=== PATIENT | male | born 1975 | race Caucasian/White ===

== ENCOUNTER 2019-11-17 09:31 | Outpatient (CLI) | payer OTHER, SELFPAY ==
[2019-11-17 10:53] LABS: Free T4 Free Thyroxine 0.92 ng/mL (0.78-2.19)
[2019-11-23 08:01] LABS: Triiodothyronine T3 Free 3.4 pg/mL (2.3-4.2)
[2019-11-23 14:04] LABS: Thyroid Stimulating Immunoglob <89 % baseline (<140)
== END 2019-11-17 09:32 | disposition home or self-care (01) ==
PROVIDERS: Visit Provider Internal Medicine Endocrinology, Diabetes & Metabolism
DX: E05.90 Thyrotoxicosis, unspecified without thyrotoxic crisis or storm (principal)
CPT/HCPCS: 36415; 84439; 84443; 84445; 84481

== ENCOUNTER 2020-04-21 07:39 | Outpatient (CLI) | payer OTHER, SELFPAY ==
[2020-04-21 09:16] LABS: Free T4 Free Thyroxine 1.02 ng/mL (0.78-2.19)
[2020-04-29 06:26] LABS: Triiodothyronine T3 Free 3.6 pg/mL (2.3-4.2)
== END 2020-04-21 07:40 | disposition home or self-care (01) ==
PROVIDERS: Visit Provider Internal Medicine Endocrinology, Diabetes & Metabolism
DX: E05.90 Thyrotoxicosis, unspecified without thyrotoxic crisis or storm (principal); E04.9 Nontoxic goiter, unspecified
CPT/HCPCS: 36415; 84439; 84443; 84481

== ENCOUNTER 2020-08-25 13:07 | Outpatient (CLI) | payer OTHER, SELFPAY ==
[2020-08-25 13:40] LABS: Alanine Aminotransferase 39 U/L (4-50); Albumin Level 4.3 g/dL (3.5-5.1); Alkaline Phosphatase 45 U/L (38-126); Anion Gap 6 mmol/L (8-16); Aspartate Amino Transferase 32 U/L (17-59); Bilirubin,Total 0.4 mg/dL (0.2-1.3); Blood Urea Nitrogen 14 mg/dL (9-20); Calcium 9.6 mg/dL (8.4-10.2); Carbon Dioxide 28 mmol/L (22-30); Chloride 108 mmol/L (98-107); Cholesterol 144 mg/dL (0-200); Estimated Glomerular Filt Rate > 60; Glucose 93 mg/dL (75-110); HDL Direct 44 mg/dL; Potassium 3.8 mmol/L (3.4-5.0); Sodium 142 mmol/L (137-145); Triglycerides 99 mg/dL (<150)
[2020-08-25 13:51] LABS: LDL Cholesterol Direct 80 mg/dL
== END 2020-08-25 13:08 | disposition home or self-care (01) ==
LOC: ANHLAB 13:11
PROVIDERS: PCP Physician Assistant; Visit Provider Physician Assistant
DX: E78.2 Mixed hyperlipidemia (principal); Z80.42 Family history of malignant neoplasm of prostate
CPT/HCPCS: 36415; 80053; 80061; 84153

== ENCOUNTER 2020-08-26 08:34 | Outpatient (CLI) | payer OTHER, SELFPAY ==
--- NOTE | 2020-08-26 08:30 | ECG_ITS ---
Measurements Intervals [place] Rate: 58 P: 34 MS: 153 QRS: 0 QRSD: 101 T: 21 QT: 379 QTc: 375 Interpretive Statements SINUS BRADYCARDIA BORDERLINE R WAVE PROGRESSION, ANTERIOR LEADS BORDERLINE ECG Electronically Signed On 08-26-2020 9:12:27 CDT by Gagan Quintana D.O.
== END 2020-08-26 08:35 | disposition home or self-care (01) ==
PROVIDERS: PCP Physician Assistant; Visit Provider Otolaryngology
DX: E78.5 Hyperlipidemia, unspecified (principal); R94.31 Abnormal electrocardiogram [ECG] [EKG]
CPT/HCPCS: 93005

== ENCOUNTER → 2020-08-27 01:39 | Outpatient (CLI) | payer OTHER, SELFPAY ==
[2020-08-28 14:53] LABS: SARS-CoV-2 RNA PCR Negative
== END ==
PROVIDERS: PCP Physician Assistant; Visit Provider Otolaryngology
DX: Z01.812 Encounter for preprocedural laboratory examination (principal); Z20.822 Contact with and (suspected) exposure to COVID-19
CPT/HCPCS: C9803; U0003; U0005

== ENCOUNTER 2020-08-30 02:24 | Day surgery (SDC) | payer OTHER, SELFPAY ==
[2020-08-24 11:14] VITALS: BMI 29.5
--- NOTE | 2020-08-29 09:05 | PM.IMHP ---
H&P: HPI History of Present Illness Date/Time: 08/29/20 09:05 45-year-old male presents with nasal obstruction. He presents today for planned surgical procedures to correct his nasal airway. Patient reports no changes in his symptoms or medical history. Chief Complaint: Nasal obstruction, septal deviation, inferior turbinate hypertrophy Review of Systems Constitutional: Constitutional: Denies fatigue, Denies fever(s) and Denies lethargy Eyes: Eyes: Denies blurry vision and Denies change in vision ENT: Reports as per HPI Cardiovascular: Cardiovascular: Denies chest pain Respiratory: Respiratory: Denies cough Endocrine: Endocrine: Denies fatigue Hematologic/Lymphatic: Hematologic/Lymphatic: Denies easy bleeding, Denies easy bruising and Denies lymphadenopathy Allergic/Immunologic: Allergic/Immunologic: Denies seasonal rhinorrhea COUNTS INCLUDE 234 BEDS AT THE [facility] Past Medical History Medical History Dyslipidemia Family History Family History Grandparent Hyperthyroidism Father Cancer Social History Social History Smoking status: Never smoker Alcohol intake: never Substance use: never Substance use type: does not use 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: No Meds Home Medications and Allergies Home Medications Medication Instructions Recorded Confirmed Type atorvastatin 10 mg tablet 10 mg PO DAILY 05/25/19 08/24/20 History famotidine 40 mg tablet 40 mg PO HS 07/26/20 08/24/20 History fluticasone propionate 50 1 spray INTRANASAL BID #16 ml 07/26/20 08/24/20 Rx mcg/actuation nasal spray,suspension azelastine 1 spray INTRANASAL HS 08/24/20 08/24/20 History methimazole 5 mg PO HS 08/24/20 08/24/20 History Allergies Allergy/AdvReac Type Severity Reaction Status Date / Time morphine Allergy Unknown Itching Verified 08/24/20 10:57 Exam Const: General: cooperative, healthy appearing, comfortable, well developed and alert HENMT: Head: normal to inspection, normocephalic and atraumatic Ears: hearing grossly normal bilaterally, external ears normal, TM's normal bilaterally and EAC's normal General nose exam: Normal external nose present, Normal nares present, No nasal polyps present, mucous membranes and turbinates abnormal, abnormal septum and Other nasal findings present ( Inferior turbinate hypertrophy left septal deviation) Face and sinus: normal facial exam Mouth: Yes Normal oral and palatal mucosa present, Yes lip normal, Yes tongue normal, Yes oropharynx normal and Yes moist mucous membranes Teeth and gingiva: dentition normal and gingiva normal Throat: posterior oropharynx normal, tonsils normal and uvula midline Eyes: General: appearance normal, both eyes and all related structures Periorbital: periorbital findings normal Eyelids: eyelids normal Conjunctivae: conjunctivae normal Sclera: sclerae normal Neck: Neck: normal visual inspection, full ROM and no lymphadenopathy Thyroid: thyroid normal Lymphatic: no lymphadenopathy noted Resp: Effort & Inspection: normal respiratory effort and able to speak in complete sentences Cardio: Jugular venous distension: no JVD Neuro: Cranial nerves: Yes CN's II-XII intact bilaterally Assessment and Plan Assessment and plan (1) Nasal obstruction: Code(s): J34.89 - Other specified disorders of nose and nasal sinuses Status: Acute Assessment and Plan: plan is for the OR for endoscopic assisted septoplasty and inferior turbinate reduction. The risks were discussed in great detail including bleeding infection damage to surrounding structures the need for further procedures septal perforation change in cosmesis blindness brain damage CSF leakage. Patient voiced und
--- NOTE | 2020-08-29 13:46 | P.PNAN_ITS ---
Anes - Initial Pre Proc Eval Procedure: Operation Date: 08/30/20 08:30 Proposed Procedures p Endoscopic Septoplasty, - Connor Enamorado MD s Bilateral Inferior Turbinectomy - Connor Enamorado MD Date/Time: 08/29/20 13:46 Surgeon: Connor Enamorado MD Pre Op Diagnosis: nasal septal deviation, turbinate hypertrophy Patient Data Age: 45 Gender: M Height: 5 ft 9 in Weight: 90.75 kg Allergies Allergy/AdvReac Type Severity Reaction Status Date / Time morphine Allergy Unknown Itching Verified 08/30/20 07:23 Home Medications Medication Instructions Recorded Confirmed Type atorvastatin 10 mg tablet 10 mg PO DAILY 05/25/19 08/30/20 History famotidine 40 mg tablet 40 mg PO HS 07/26/20 08/30/20 History fluticasone propionate 50 1 spray INTRANASAL BID #16 ml 07/26/20 08/30/20 Rx mcg/actuation nasal spray,suspension azelastine 1 spray INTRANASAL HS 08/24/20 08/30/20 History methimazole 5 mg PO HS 08/24/20 08/30/20 History Patient hx anesthesia problems: none Family hx anesthesia problems: none [facility] Past Medical History Medical History (Updated 08/29/20 @ 13:46 by Gopal Cruz MD) Dyslipidemia GERD (gastroesophageal reflux disease) Hyperthyroidism Family History Family History Grandparent Hyperthyroidism Father Cancer Social History Social History Smoking status: Never smoker Alcohol intake: never Substance use: never Substance use type: does not use Living arrangements: with family 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 Questions were solicited and answers provided to the satisfaction of the patient/family/POA.
[2020-08-30] VITALS (15 sets, daily range): BP systolic 142–180; BP diastolic 65–106; PULSE 74–96; RESP 10–18; TEMP 36.1–36.3; O2SAT 94–99
[2020-08-30] MEDS: LACTATED RINGERS 1,000 ML 30 ML IV CONT ×2 (07:00→10:10)
[2020-08-30] MEDS: ACETAMINOPHEN 500 MG TABLET 1000 MG PO (07:05)
--- NOTE | 2020-08-30 07:17 | WPDHPUPDATE1 ---
History and Physical Update Update Date/Time: 08/30/20 07:17 History and Physical has been reviewed, including an updated exam of the patient. There are NO changes in the patient's condition. Risks, benefits, and alternatives have been discussed and questions answered. Patient agrees to proceed with procedure.
[2020-08-30] MEDS: ceFAZolin 2 GM/D5W 50 ML 2 GM/50 ML BAG IVPB (08:32)
[2020-08-30] MEDS: LIDO 1%/EPINEPHRINE 1:100,000 50 ML VIAL 10 ML INFILTRATE (08:47)
[2020-08-30] MEDS: OXYMETAZOLINE HCL 0.05% NAS 15 ML BTL (*BKC) 1 SPRAY NASAL (08:48)
--- NOTE | 2020-08-30 10:26 | P.OP_ITS ---
Procedure Note - Detailed Date of procedure: 08/30/20 Pre-op diagnosis: nasal septal deviation, turbinate hypertrophy Post-op diagnosis: same Procedure performed: Endoscopic assisted septoplasty Inferior turbinate reduction without fracture Description of procedure: The patient was correctly identified and consent was verified in the preoperative holding area. The patient was then brought to the operating room and a time-out was performed. General anesthesia was induced and endotracheal tube was secured the patient's airway and taped to the left lower lip. Afrin-soaked pledgets were then placed in the patient's nasal passages and allowed to sit for 5 minutes. They were then removed. The patient was then prepped and draped for the aforementioned procedures. Under 0 degree endoscope the bilateral nasal passages reviewed were with inferior turbinate hypertrophy and severe left caudal septal deviation noted. The septal spur was growing into the left inferior turbinate. 8 cc of 1% lidocaine with 1 100,000 parts epinephrine was then injected into the submucoperichondrial plane on the bilateral nasal septum. A [place] type incision was made on the left using a 15 blade. Elevation was carried out with a 7 Occitan suction as well as caudal elevator. The deviated portion was then removed following elevation of the right mucoperichondrial flap. Of note there is a left-sided septal perforation in the same region as the spur. The deviated septum was removed with Mima forceps osteotome and Marvin Farnsworth forceps. The inferior turbinates were then injected anteriorly with 1 cc of 1% lidocaine with 1 100,000 parts epinephrine each. There debrided in the submucosal plane with a micro debrider with inferior turbinate blade. There were then outfractured and any mulberry tips were again resected with micro debrider. There were lightly cauterized to prevent postoperative epistaxis. The anterior the Shiva incision was then sutured with 2 interrupted 5 0 fast gut sutures. Hope splints were then placed. These were sutured anteriorly using a 3 0 nylon suture. Hemostasis was excellent. I performed all dictated portions of the procedure. Care the patient was turned over to Anesthesiology. Anesthesia: GETA Surgeon: Connor Enamorado MD Estimated blood loss (mL): 10 Drains: No Packing: No Pathology: none sent Complications: No immediate complications Condition: stable Disposition: PACU Findings: Bilateral inferior turbinate hypertrophy, severe left-sided caudal septal spur
[2020-08-30] MEDS: hydrALAZINE HCL 20 MG/ML VIAL 5 MG IV PUSH ×2 (11:40→11:47)
[2020-08-30] MEDS: ONDANSETRON INJ 4 MG/2 ML VIAL IV PUSH (13:07)
[2020-08-30] MEDS: hydrALAZINE HCL 20 MG/ML VIAL 10 MG IV PUSH (13:13)
--- NOTE | 2020-08-30 13:45 | SUR.PHASEII ---
Patient is still feeling slightly nauseous, educated patient on nausea and pain pill. Patient states at this time he would rather go home and sleep than wait to see if nausea subsides to take pain pill.
== END 2020-08-30 13:57 | disposition home or self-care (01) ==
PROVIDERS: PCP Physician Assistant; Visit Provider Otolaryngology
PROC: (CPT 30520; principal; 2020-08-30 08:30)
PROC: (CPT 30140; 2020-08-30 08:30)
DX: J34.2 Deviated nasal septum (principal); J34.3 Hypertrophy of nasal turbinates; J34.89 Other specified disorders of nose and nasal sinuses; E78.5 Hyperlipidemia, unspecified; K21.9 Gastro-esophageal reflux disease without esophagitis; E05.90 Thyrotoxicosis, unspecified without thyrotoxic crisis or storm; E66.9 Obesity, unspecified; Z68.30 Body mass index [BMI] 30.0-30.9, adult
CPT/HCPCS: 30140; 30520; A9270; J0330; J0360; J0690; J1100; J2250; J2370; J2405; J2704; J3010; J7120

== ENCOUNTER 2021-05-25 10:51 | Outpatient (CLI) | payer OTHER, SELFPAY ==
[2021-05-25 11:06] LABS: Hematocrit 42.6 % (42.0-52.0); Hemoglobin 13.9 g/dL (14.0-18.0); Mean Corpuscular HGB Conc 32.6 g/dl (32-36); Mean Corpuscular Hemoglobin 26.9 pg (26-34); Mean Corpuscular Volume 82.6 fl (80-100); Mean Platelet Volume 10.7 fl (7.4-10.4); Platelet Count Result 230 k/mm3 (150-375); Red Blood Count 5.16 M/mm3 (4.6-6.20); Red Cell Distribution Width 13.3 % (11.5-14.5); White Blood Count 13.4 K/mm3 (4.5-10.0)
[2021-05-25 18:39] LABS: Alanine Aminotransferase 47 U/L (4-50); Albumin Level 4.8 g/dL (3.5-5.1); Alkaline Phosphatase 57 U/L (38-126); Anion Gap 7 mmol/L (8-16); Aspartate Amino Transferase 27 U/L (17-59); Bilirubin,Total 0.3 mg/dL (0.2-1.3); Blood Urea Nitrogen 16 mg/dL (9-20); Calcium 9.8 mg/dL (8.4-10.2); Carbon Dioxide 28 mmol/L (22-30); Chloride 108 mmol/L (98-107); Cholesterol 196 mg/dL (0-200); Estimated Glomerular Filt Rate 59; Glucose 128 mg/dL (65-110); HDL Direct 53 mg/dL; Potassium 4.4 mmol/L (3.4-5.0); Sodium 143 mmol/L (137-145); Triglycerides 160 mg/dL (<150)
[2021-05-25 18:50] LABS: LDL Cholesterol Direct 120 mg/dL
[2021-05-25 19:10] LABS: Prostate Specific Antigen 1.1 ng/mL (< OR = 4.0)
== END 2021-05-25 10:52 | disposition home or self-care (01) ==
PROVIDERS: PCP Physician Assistant; Visit Provider Physician Assistant
DX: E78.2 Mixed hyperlipidemia (principal); K30 Functional dyspepsia; E05.90 Thyrotoxicosis, unspecified without thyrotoxic crisis or storm; Z80.42 Family history of malignant neoplasm of prostate
CPT/HCPCS: 36415; 80053; 80061; 84153; 84439; 84443; 85027

== ENCOUNTER 2021-06-22 10:11 | Outpatient (CLI) | payer OTHER, SELFPAY ==
[2021-06-22 11:31] LABS: Hemoglobin A1C 5.3 % (<5.7)
== END 2021-06-22 10:12 | disposition home or self-care (01) ==
LOC: ANHLAB 10:14
PROVIDERS: PCP Physician Assistant; Visit Provider Physician Assistant
DX: R73.09 Other abnormal glucose (principal)
CPT/HCPCS: 36415; 83036

== ENCOUNTER 2021-07-11 09:45 | Outpatient (RCR) | payer OTHER, SELFPAY ==
--- NOTE | 2021-06-01 09:43 | PTOPEVAL ---
Thank you for referring Simon Tilley to [facility].? The patient is scheduled to be seen for therapy? 2 x/week for 3 weeks. Please review, sign, date and return this plan of care [place]. I agree with and certify that the following plan of care is medically necessary. 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 Subjective Information Reports his pain started in Query Text:As Reported By Patient/ the middle of his back and Family progressed to his neck region. He also c/o right elbow to hand pain. He received steriods which helped with his symptoms. He denies any hobbies at this time. He reports limitations with sleeping with increased arm pain. C/o mild arm pain with prolonged typing, prolonged use of UE with household task. Increased arm pain with heavy lifting task. Pain Assessment Right Arm(s) Reported Pain Level 2 Pain Description Tender on Palpation Pain Frequency Acute,Continuous Lowest Pain Intensity 2 Greatest Pain Intensity 10 Pain Aggravating Factors Lifting,Prolonged Position Bilateral Neck Reported Pain Level 3 Pain Description Tightness Pain Frequency Acute,Continuous Lowest Pain Intensity 3 Greatest Pain Intensity 3 Pain Aggravating Factors Lifting,Prolonged Position Cervical and Lumbar ROM Cervical ROM Cervical Flexion (0-60) 55Active in Degrees Cervical Extension (0-70) 55:Active in Degrees Cervical Lateral Flexion Right (0-50) 30:Active in Degrees Cervical Lateral Flexion Left (0-50) 35:Active in Degrees Cervical Rotation Right (0-90) 45Active in Degrees Cervical Rotation Left (0-90) 55:Active in Degrees Cervical ROM Comments pain with flex stiffness with lateral flex and rotation Upper Extremity Range of Motion General Upper Extremity Range of Motion Reason Not Measured WNL/Left,WNL/Right Cervical and Lumbar Muscle Testing Cervical Muscle Testing Cervical Flexion 5 Normal Cervical Extension 5 Normal Cervical Lateral Flexion Right 5 Normal Cervical Lateral Flexion Left 5 Normal Upper Extremity Muscle Strength Testing General Upper Extremity St
--- NOTE | 2021-06-20 09:08 | PTOPEVAL ---
Physical Therapy Progress Note Thank you for referring Simon Tilley to [facility]See summary below for Simon's progress with therapy. Additional therapy is required to address his remaining restrictions and achieve his therapy goals. The patient is scheduled to be seen for therapy? 1 x/week for 3 weeks. Please review, sign, date and return this plan of care [place]. I agree with and certify that the following plan of care is medically necessary. 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 Subjective Information Reports his pain his neck pain Query Text:As Reported By Patient/ is better with only tightness. Family HE cont to right elbow region pain. He denies increased arm pain waking him at night. He cont to have occasional symptoms with increased UE activities. Cont to c/o midback tightness and tenderness contributing to symptoms. Pain Assessment Right Arm(s) Reported Pain Level 1 Pain Description Tender on Palpation,Tingling Greatest Pain Intensity 10 Bilateral Neck Reported Pain Level 0 Pain Description Tightness Lowest Pain Intensity 0 Greatest Pain Intensity 0 Cervical and Lumbar ROM Cervical ROM Cervical Flexion (0-60) 60:Active in Degrees Cervical Extension (0-70) 60:Active in Degrees Cervical Lateral Flexion Right (0-50) 30:Active in Degrees Cervical Lateral Flexion Left (0-50) 30:Active in Degrees Cervical Rotation Right (0-90) 50:Active in Degrees Cervical Rotation Left (0-90) 70:Active in Degrees Cervical ROM Comments no pain with flex stiffness with lateral flex and right rotation Palpation Assessment Palpation Palpation muscle tightness of trap, scalene muscles and levator muscles tenderness and tightness of T5 -8 right paraspinals, serratus post sup region Special Test-Spine Cervical Spine Special Tests Foraminal Compression (Spurling) Negative Right,Negative Left Special Tests-Upper Extremity Shoulder Special Tests Painful Arc Negative Left,Negative Right Drop Arm Test Negative Left,Negative Right Upper Limb Tension Test: Radial Negative Left,Negative Right Upper Limb Tension Test:Median Negative Left
--- NOTE | 2021-07-11 16:39 | PTOPEVAL ---
Physical Therapy Discharge Summary Thank you for referring Simon Tilley to [facility].? See summary below for Simon's progress with therapy. He has reached maximal potential with skilled therapy services at this time. He has been provided a HEP and demonstrates indep. Will DC skilled therapy at this time. Please review, sign, date and return this discharge summary [place]. I agree with and certify that the following plan of care is medically necessary. 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 Subjective Information Reports the dry needling did Query Text:As Reported By Patient/ improve his tightness. Denies Family any UE symptoms, but cont neck tightness. He has not been performing neck stretching exercises at home. Pain Assessment Right Arm(s) Reported Pain Level 0 Bilateral Neck Reported Pain Level 0 Pain Description Tightness Cervical and Lumbar ROM Cervical ROM Cervical Lateral Flexion Right (0-50) 30:Active in Degrees Cervical Lateral Flexion Left (0-50) 33:Active in Degrees Cervical Rotation Right (0-90) 60:Active in Degrees Cervical Rotation Left (0-90) 60:Active in Degrees Cervical ROM Comments no pain with flex stiffness with lateral flex and right rotation Cervical and Lumbar Muscle Testing Cervical Muscle Testing Cervical Flexion 5 Normal Cervical Extension 5 Normal Cervical Lateral Flexion Right 5 Normal Cervical Lateral Flexion Left 5 Normal Deep Cervical Flexion sarahy 5 sec with proper position and control Upper Extremity Muscle Strength Testing General Upper Extremity Strength Gross Upper Extremity Strength Comments middle trap: 4/5 lower trap: 3+/5 no pain, improved muscle recruitment Palpation Assessment Palpation Palpation cont muscle tightness of jan upper/middle trap, scalene muscles no tenderness noted of neck and upper back muscles, no tenderness or tightness of serratus post sup or inf muscles PT Clinical Summary Pt referred to therapy due to neck pain and cervicalgia for the past month. He has attended 9 therapy visits to
== END 2021-07-12 10:55 | disposition home or self-care (01) ==
LOC: ANHPT 09:45
PROVIDERS: PCP Physician Assistant; Visit Provider Physician Assistant
DX: M54.2 Cervicalgia (principal)
CPT/HCPCS: 20560; 97110; 97112; 97140; 97162

== ENCOUNTER 2021-07-17 14:17 | Outpatient (CLI) | payer OTHER, SELFPAY ==
[2021-07-17 16:41] LABS: Free T4 Free Thyroxine 0.96 ng/mL (0.78-2.19)
[2021-07-17 16:57] LABS: Thyroid Stimulating Hormone 0.585 uIU/mL (0.465-4.680)
== END 2021-07-17 14:18 | disposition home or self-care (01) ==
LOC: ANHWCLAB 14:20
PROVIDERS: PCP Physician Assistant; Visit Provider Nurse Practitioner Family
DX: E07.9 Disorder of thyroid, unspecified (principal)
CPT/HCPCS: 36415; 84439; 84443; 84480

== ENCOUNTER → 2021-09-22 02:23 | Outpatient (CLI) | payer OTHER, SELFPAY ==
[2021-09-22 12:21] LABS: SARS-CoV-2 RNA PCR Negative
== END ==
DX: Z20.822 Contact with and (suspected) exposure to COVID-19 (principal)
CPT/HCPCS: C9803; U0003; U0005

== ENCOUNTER 2021-12-01 10:39 | Outpatient (CLI) | payer OTHER, SELFPAY ==
--- NOTE | ~2021-12-01 | XR_ITS ---
XR thoracic spine 3V DATE: 12/01/2021 11:00 INDICATION: Thoracic back pain TECHNIQUE: AP, lateral, swimmer views COMPARISON: None FINDINGS: No fracture or dislocation or bone destruction. The thoracic pedicles are intact. No parasp inal soft tissue thickening. IMPRESSION: No significant abnormality Reviewed, dictated and finalized at location B. IMPRESSION: No significant abnormality
--- NOTE | ~2021-12-01 | XR_ITS ---
XR lumbar spine 2-3V DATE: 12/01/2021 11:00 INDICATION: Acute low back pain for one year. No injury. TECHNIQUE: COMPARISON: None FINDINGS: Normal alignment of the lumbar spine. No fracture or bone destruction is evident. The T12 a nd lumbar pedicles are intact. Moderately prominent loss of interspace height and minimal spurring at L5-S1. Remaining lumbar inters paces appear relatively well preserved. Mild spurring at L3-4. No spondylolisthesis. The sacroiliac joints appear normal. Mary Jane and sutures overlie the pelvis bilaterally. IMPRESSION: Mild degenerative disc disease at L3-4 Moderately severe degenerative disc disease at L5-S1 Reviewed, dictated and finalized at location B.
--- NOTE | ~2021-12-01 | XR_ITS ---
XR cervical spine 4-5V DATE: 12/01/2021 11:01 INDICATION: Neck pain, thoracic and lumbar back pain TECHNIQUE: AP, open-mouth, lateral, swimmer views COMPARISON: None FINDINGS: C1 and C2 are normally aligned and the odontoid process is intact. No fracture or dislocati on or locked facet or prevertebral soft tissue swelling. Minimal degenerative disease at C3-4 and C4-5 and mild degenerative disease at C5-6. Remaining cervic al interspaces appear well preserved. IMPRESSION: Minimal degenerative change Reviewed, dictated and finalized at location B. IMPRESSION: Minimal degenerative change
== END 2021-12-01 10:40 | disposition home or self-care (01) ==
PROVIDERS: PCP Emergency Medicine; Visit Provider Physician Assistant
DX: M51.36 Other intervertebral disc degeneration, lumbar region (principal); M51.37 Other intervertebral disc degeneration, lumbosacral region
CPT/HCPCS: 72050; 72072; 72100

== ENCOUNTER 2022-02-05 11:41 | Outpatient (CLI) | payer OTHER, SELFPAY ==
[2022-02-05 20:28] LABS: Free T4 Free Thyroxine 1.04 ng/mL (0.78-2.19)
[2022-02-05 20:48] LABS: Thyroid Stimulating Hormone 0.284 uIU/mL (0.465-4.680)
[2022-02-08 14:27] LABS: Thyroid Stimulating Immunoglob <89 % baseline (<140)
== END 2022-02-05 11:42 | disposition home or self-care (01) ==
LOC: ANHGOSHLAB 11:42
PROVIDERS: PCP Emergency Medicine; Visit Provider Internal Medicine Endocrinology, Diabetes & Metabolism
DX: E05.90 Thyrotoxicosis, unspecified without thyrotoxic crisis or storm (principal); E05.00 Thyrotoxicosis with diffuse goiter without thyrotoxic crisis or storm
CPT/HCPCS: 36415; 84439; 84443; 84445

== ENCOUNTER 2022-04-10 13:30 | Outpatient (CLI) | payer OTHER, SELFPAY ==
[2022-04-10 19:04] LABS: Thyroid Stimulating Hormone 0.071 uIU/mL (0.465-4.680)
[2022-04-10 19:24] LABS: Free T4 Free Thyroxine 1.05 ng/mL (0.78-2.19)
[2022-04-13 06:22] LABS: Triiodothyronine T3 Free 3.6 pg/mL (2.3-4.2)
== END 2022-04-10 13:31 | disposition home or self-care (01) ==
LOC: ANHGOSHLAB 13:31
PROVIDERS: PCP Emergency Medicine; Visit Provider Internal Medicine Endocrinology, Diabetes & Metabolism
DX: E04.9 Nontoxic goiter, unspecified (principal); E05.00 Thyrotoxicosis with diffuse goiter without thyrotoxic crisis or storm
CPT/HCPCS: 36415; 84439; 84443; 84481

== ENCOUNTER 2022-05-30 07:01 | Outpatient (CLI) | payer OTHER, SELFPAY ==
[2022-05-30 08:03] LABS: Alanine Aminotransferase 54 U/L (6-50); Albumin Level 4.3 g/dL (3.5-5.1); Alkaline Phosphatase 50 U/L (38-126); Anion Gap 6 mmol/L (8-16); Aspartate Amino Transferase 33 U/L (17-59); Bilirubin,Total 0.5 mg/dL (0.2-1.3); Blood Urea Nitrogen 16 mg/dL (9-20); Calcium 9.1 mg/dL (8.4-10.2); Carbon Dioxide 26 mmol/L (22-30); Chloride 105 mmol/L (98-107); Estimated Glomerular Filt Rate > 60; Glucose 96 mg/dL (65-110); Potassium 3.8 mmol/L (3.4-5.0); Sodium 137 mmol/L (137-145)
[2022-05-30 08:32] LABS: Thyroid Stimulating Hormone 0.099 uIU/mL (0.465-4.680)
[2022-05-30 09:00] LABS: Free T4 Free Thyroxine 1.03 ng/mL (0.78-2.19)
[2022-06-02 04:14] LABS: Triiodothyronine T3 Free 3.8 pg/mL (2.3-4.2)
== END 2022-05-30 07:02 | disposition home or self-care (01) ==
PROVIDERS: PCP Emergency Medicine; Visit Provider Internal Medicine Endocrinology, Diabetes & Metabolism
DX: E05.00 Thyrotoxicosis with diffuse goiter without thyrotoxic crisis or storm (principal); E04.9 Nontoxic goiter, unspecified
CPT/HCPCS: 36415; 80053; 84439; 84443; 84481

== ENCOUNTER 2022-06-12 08:16 | Outpatient (CLI) | payer OTHER, SELFPAY ==
--- NOTE | 2022-06-24 14:13 | WPDHOMESLEEP ---
Sleep Study - Home Unattended Date of Study: 06/12/22 Ordering Provider: Ryan Montes De Oca APRN Interpreting Provider: Tona Baeza, DO Home Sleep Study Type: Watch PAT Height: 1.75 m Weight: 99.79 kg Body Mass Index: 32.5 Neck Circumference (inches): 16 [place]: 5 Reason for Sleep Study Daytime hypersomnia Sleep History The patient is a 46 year male with hyperthyroidism, GERD and dyslipidemia that had a sleep study ordered by the Pulmonary group for evaluation of sleep apnea. The patient rarely awakens from sleep short of breath. He occasionally awakens at night with heartburn, belching or cough. He constantly snores loudly enough others complain. He occasionally has breathing problems at night observed by himself or others. He denies sweating excessively at night. He denies having heart palpitations or irregular heartbeats during the night. He denies falling asleep during the day and denies falling asleep while driving. He denies sleep paralysis, cataplexy and hypnagogic / hypnopompic hallucinations. He denies having trouble at school or work due to sleepiness. He denies feeling afraid of going to sleep. He denies having nightmares. He rarely remembers his dreams. He occasionally has thoughts racing through his mind. He denies feeling sad, depressed or anxious. He denies having muscular tension. He frequently notices parts of his body jerk. He denies kicking during the night. He denies having crawling and aching feelings in his legs and denies having leg pain during the night. He occasionally grinds his teeth during sleep but never awakens with morning jaw pain. He denies being bothered by pain during the day and denies being awakened by pain during the night. He occasionally wakes up feeling stiff in the morning. He denies waking up with sore or achy muscles. He rarely wakes up with pain in the neck, spine or other joints. He goes to bed between 9-10 p.m. on weekdays and between 10-11 p.m. on the weekends. He is able to fall asleep within a few minutes. He wakes up several times throughout the night to urinate, let out the dog or for unknown reasons. He is able to fall back asleep within a few minutes. He typically gets 6-8 hours of sleep per night. He will stay in bed for a few minutes after waking up in the morning. He currently lives with his and 17-year-old child. He will consume tea within 2 hours of bedtime. He does not engage in physical exercise before bedtime. He will watch television before falling asleep. He denies taking naps in the afternoon or the evening. He will consume caffeinated beverages throughout the day. He denies tobacco, alcohol and recreational drug use. 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
[2022-06-24 14:27] VITALS: BMI 32.5
== END 2022-06-14 10:11 | disposition home or self-care (01) ==
LOC: ANHCSM 08:17
PROVIDERS: PCP Emergency Medicine; Visit Provider Nurse Practitioner Family
DX: G47.30 Sleep apnea, unspecified (principal); G47.33 Obstructive sleep apnea (adult) (pediatric)
CPT/HCPCS: 95800

== ENCOUNTER 2022-07-05 11:56 | Outpatient (CLI) | payer OTHER, SELFPAY ==
[2022-07-05 13:01] LABS: Thyroid Stimulating Hormone 0.047 uIU/mL (0.465-4.680)
[2022-07-05 13:21] LABS: Free T4 Free Thyroxine 1.18 ng/mL (0.78-2.19)
[2022-07-11 05:49] LABS: Triiodothyronine T3 Free 3.7 pg/mL (2.3-4.2)
== END 2022-07-05 11:57 | disposition home or self-care (01) ==
LOC: ANHLAB 11:58
PROVIDERS: PCP Emergency Medicine; Visit Provider Internal Medicine Endocrinology, Diabetes & Metabolism
DX: E05.90 Thyrotoxicosis, unspecified without thyrotoxic crisis or storm (principal); E04.9 Nontoxic goiter, unspecified
CPT/HCPCS: 36415; 84439; 84443; 84481

== ENCOUNTER 2022-07-06 08:54 | Outpatient (CLI) | payer OTHER, SELFPAY ==
--- NOTE | ~2022-07-06 | XR_ITS ---
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 TECHNIQUE: PA and lateral views of the chest were obtained. COMPARISON: Chest radiograph dated 10/08/2018 FINDINGS: The lungs remain clear with no focal airspace opacities, pulmonary edema, pleural effusion or pneumot horax. The cardiomediastinal silhouette is normal. Prominent hypertrophic change at the bilateral ant erior first ribs. Mild thoracic spondylosis. IMPRESSION: 1. No acute cardiopulmonary disease. Reviewed, dictated and finalized at location B.
== END 2022-07-06 08:55 | disposition home or self-care (01) ==
PROVIDERS: PCP Emergency Medicine; Visit Provider Nurse Practitioner Family
DX: G47.34 Idiopathic sleep related nonobstructive alveolar hypoventilation (principal)
CPT/HCPCS: 71046

== ENCOUNTER 2022-07-09 08:05 | Outpatient (CLI) | payer OTHER, SELFPAY ==
--- NOTE | 2022-07-09 17:22 | WPDPFTINT ---
PFT Procedure Performed PFT Procedure Performed Spirometry with Pre/Post Bronchodilator Plethysmography (Lung Vol) Diffusing Cap (DLCO) Flow Vol Loop PFT Interpretation This is a pulmonary function test with pre and post-bronchodilator spirometry, plethysmography and diffusing capacity. The test was performed and results interpreted in accordance with the 2019 and 2005 ATS/ERS Task Force guidelines respectively using the Global Lung Function Initiative-2012 reference equations. Patient demonstrated good effort and cooperation. Reproducibility criteria were met. The quality of the pre bronchodilator spirometry maneuver was Grade A and post bronchodilator spirometry maneuver was Grade A. Findings: Spirometry: The contour the inspiratory and expiratory flow tracing are normal. The pre bronchodilator FVC is 4.69 L, 97% predicted. The pre bronchodilator FEV1 is 4.05 L, 105% predicted. The pre bronchodilator FEV1: FVC ratio was 86%. The post bronchodilator FVC is 4.67 L, representing 1% decrease. The post bronchodilator FEV1 is 4.15 L, representing a 3% increase. The post bronchodilator FEV1: FVC ratio was 89%. Plethysmography: The total lung capacity is 6.55 L, 97% predicted. The functional residual capacity is 2.80 L, 82% predicted. The residual volume is 1.56 L, 81% predicted. Diffusion capacity: The diffusing capacity unadjusted for hemoglobin and carboxyhemoglobin is 24.1, 78% predicted. The diffusing capacity adjusted for alveolar volume is 4.16, 89% predicted. Impression: The spirometry is normal without evidence of an obstructive abnormality. There is no significant improvement after inhaling a single dose of albuterol. The lung volumes are normal. The diffusing capacity is normal. There are no prior studies for comparison
== END 2022-07-09 08:06 | disposition home or self-care (01) ==
PROVIDERS: PCP Emergency Medicine; Visit Provider Nurse Practitioner Family
DX: G47.34 Idiopathic sleep related nonobstructive alveolar hypoventilation (principal)
CPT/HCPCS: 94060; 94726; 94729

== ENCOUNTER 2022-08-08 08:21 | Outpatient (CLI) | payer OTHER, SELFPAY ==
--- NOTE | 2022-08-30 16:22 | WPDSLEEPSTUD ---
Sleep Study Date of Study: 08/08/22 Ordering Provider: Ryan Montes De Oca APRN Interpreting Physician: Jojo Leal MD Sleep Study Type: CPAP Titration Height: 1.75 m Weight: 99.79 kg Body Mass Index: 32.5 Neck Circumference (inches): 16 [place]: 5 Reason for Sleep Study * 06/12/2022 home sleep test showing mild obstructive sleep apnea with hypoxemia; he presents for a CPAP titration AHI of 11.1, desaturation down to 75% Sleep History Simon Tilley is a 47 year male with mild obstructive sleep apnea who is here for a CPAP titration. He rarely awakens from sleep short of breath.? He occasionally awakens at night with heartburn, belching or cough.? He constantly snores loudly enough that others complain.? He occasionally has breathing problems at night observed by himself or others.? He denies sweating excessively at night or having heart palpitations or irregular heartbeats during the night.? He denies falling asleep during the day and denies falling asleep while driving.? He denies sleep paralysis, cataplexy and hypnagogic / hypnopompic hallucinations.? He denies having trouble at school or work due to sleepiness.? He denies feeling afraid of going to sleep.? He denies having nightmares.? He rarely remembers his dreams.? He occasionally has thoughts racing through his mind.? He denies feeling sad, depressed or anxious.? He denies having muscular tension.? He frequently notices parts of his body jerk.? He denies kicking during the night.? He denies having crawling and aching feelings in his legs and denies having leg pain during the night.? He occasionally grinds his teeth during sleep but never awakens with morning jaw pain.? He denies being bothered by pain during the day and denies being awakened by pain during the night.? He occasionally wakes up feeling stiff in the morning.? He denies waking up with sore or achy muscles.? He rarely wakes up with pain in the neck, spine or other joints.? He goes to bed between 9-10 p.m. on weekdays and between 10-11 p.m. on the weekends.? He is able to fall asleep within a few minutes.? He wakes up several times throughout the night to urinate, let out the dog or for unknown reasons.? He is able to fall back asleep within a few minutes.? He typically gets 6-8 hours of sleep per night.? He will stay in bed for a few minutes after waking up in the morning.? He currently lives with his and 17-year-old child.? He will consume tea within 2 hours of bedtime.? He does not engage in physical exercise before bedtime.? He will watch television before falling asleep.? He denies taking naps in the afternoon or the evening.? Habits: He drinks caffeinated beverages throughout the day.? He denies tobacco, alcohol and recreational substance use. 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
[2022-08-30 16:55] VITALS: BMI 32.5
== END 2022-08-09 05:44 | disposition home or self-care (01) ==
LOC: ANHCSM 08:22
PROVIDERS: PCP Emergency Medicine; Visit Provider Nurse Practitioner Family
DX: G47.33 Obstructive sleep apnea (adult) (pediatric) (principal)
CPT/HCPCS: 95811

== ENCOUNTER 2022-08-21 09:37 | Outpatient (CLI) | payer OTHER, SELFPAY ==
[2022-08-21 09:57] LABS: Hematocrit 43.2 % (42.0-52.0); Hemoglobin 13.8 g/dL (14.0-18.0); Mean Corpuscular HGB Conc 31.9 g/dl (32-36); Mean Corpuscular Volume 78.3 fl (80-100); Mean Platelet Volume 10.6 fl (7.4-10.4); Platelet Count Result 196 k/mm3 (150-375); Red Blood Count 5.52 M/mm3 (4.6-6.20); Red Cell Distribution Width 15.2 % (11.5-14.5); White Blood Count 5.5 K/mm3 (4.5-10.0)
[2022-08-21 10:07] LABS: Alanine Aminotransferase 52 U/L (6-50); Albumin Level 4.5 g/dL (3.5-5.1); Alkaline Phosphatase 56 U/L (38-126); Anion Gap 7 mmol/L (8-16); Aspartate Amino Transferase 33 U/L (17-59); Bilirubin,Total 0.5 mg/dL (0.2-1.3); Blood Urea Nitrogen 14 mg/dL (9-20); Calcium 8.7 mg/dL (8.4-10.2); Carbon Dioxide 25 mmol/L (22-30); Chloride 107 mmol/L (98-107); Cholesterol 161 mg/dL (0-200); Estimated Glomerular Filt Rate > 60; Glucose 99 mg/dL (65-110); HDL Direct 38 mg/dL; Sodium 139 mmol/L (137-145); Triglycerides 132 mg/dL (<150)
[2022-08-21 10:18] LABS: LDL Cholesterol Direct 92 mg/dL
[2022-08-21 10:36] LABS: Thyroid Stimulating Hormone 0.019 uIU/mL (0.465-4.680)
[2022-08-21 10:45] LABS: Free T4 Free Thyroxine 1.06 ng/mL (0.78-2.19)
[2022-08-25 04:44] LABS: Triiodothyronine T3 Free 3.7 pg/mL (2.3-4.2)
== END 2022-08-21 09:38 | disposition home or self-care (01) ==
PROVIDERS: PCP Emergency Medicine; Visit Provider Physician Assistant
DX: E78.2 Mixed hyperlipidemia (principal); K21.9 Gastro-esophageal reflux disease without esophagitis; E05.90 Thyrotoxicosis, unspecified without thyrotoxic crisis or storm
CPT/HCPCS: 36415; 80053; 80061; 84439; 84443; 84481; 85027

== ENCOUNTER 2022-10-01 13:30 | Outpatient (CLI) | payer OTHER, SELFPAY ==
--- NOTE | ~2022-10-01 | NM_ITS ---
EXAMINATION: NM thyroid scan w uptake DATE: 10/02/2022 14:26 INDICATION: Hyperthyroidism. COMPARISON: None. TECHNIQUE: 0.369 mCi I-123 was administered orally. Scintigraphic images of the thyroid gland were o btained at 24 hours. Thyroid uptake was calculated by the technologist. FINDINGS: The thyroid uptake is 48% (normal 10-30%), with the right lobe measuring 23% uptake and the left 25%. There is no focal area of decreased or increased activity to suggest hypofunctioning or hyperfunctio yue nodule. IMPRESSION: 1. Increased 24-hour iodine uptake, consistent with Graves' disease. Reviewed, dictated and finalized at location A.
== END 2022-10-01 13:31 | disposition home or self-care (01) ==
LOC: ANHIMG 13:31
PROVIDERS: PCP Physician Assistant; Visit Provider Internal Medicine Endocrinology, Diabetes & Metabolism
DX: E05.90 Thyrotoxicosis, unspecified without thyrotoxic crisis or storm (principal); E05.00 Thyrotoxicosis with diffuse goiter without thyrotoxic crisis or storm
CPT/HCPCS: 78014; A9516

== ENCOUNTER 2023-01-24 07:09 | Outpatient (CLI) | payer OTHER, SELFPAY ==
[2023-01-24 07:58] LABS: Alanine Aminotransferase 54 U/L (6-50); Alkaline Phosphatase 49 U/L (38-126); Anion Gap 6 mmol/L (8-16); Aspartate Amino Transferase 39 U/L (17-59); Bilirubin,Total 0.5 mg/dL (0.2-1.3); Blood Urea Nitrogen 14 mg/dL (9-20); Calcium 8.5 mg/dL (8.4-10.2); Carbon Dioxide 25 mmol/L (22-30); Chloride 107 mmol/L (98-107); Estimated Glomerular Filt Rate > 60; Glucose 96 mg/dL (65-110); Potassium 3.7 mmol/L (3.4-5.0); Sodium 138 mmol/L (137-145)
[2023-01-24 08:22] LABS: Free T4 Free Thyroxine 0.71 ng/mL (0.78-2.19)
== END 2023-01-24 07:10 | disposition home or self-care (01) ==
LOC: ANHLAB 07:11
PROVIDERS: PCP Physician Assistant; Visit Provider Internal Medicine Endocrinology, Diabetes & Metabolism
DX: R74.8 Abnormal levels of other serum enzymes (principal); E05.90 Thyrotoxicosis, unspecified without thyrotoxic crisis or storm
CPT/HCPCS: 36415; 80053; 84439; 84443

== ENCOUNTER 2023-04-24 15:31 | Outpatient (CLI) | payer OTHER, SELFPAY ==
[2023-04-24 17:30] LABS: Free T4 Free Thyroxine 0.94 ng/mL (0.78-2.19)
== END 2023-04-24 15:32 | disposition home or self-care (01) ==
LOC: ANHWCLAB 15:32
PROVIDERS: PCP Physician Assistant; Visit Provider Internal Medicine Endocrinology, Diabetes & Metabolism
DX: E04.9 Nontoxic goiter, unspecified (principal); E05.90 Thyrotoxicosis, unspecified without thyrotoxic crisis or storm
CPT/HCPCS: 36415; 84439; 84443; 84481

== ENCOUNTER 2023-08-06 07:46 | Outpatient (CLI) | payer OTHER, SELFPAY ==
[2023-08-06 08:20] LABS: Cholesterol 132 mg/dL (0-200); HDL Direct 39 mg/dL; Triglycerides 104 mg/dL (<150)
[2023-08-06 08:30] LABS: Hemoglobin A1C 5.5 % (<5.7)
[2023-08-06 08:32] LABS: LDL Cholesterol Direct 78 mg/dL
[2023-08-06 08:52] LABS: Prostate Specific Antigen 1.3 ng/mL (< OR = 4.0)
[2023-08-06 09:41] LABS: Free T4 Free Thyroxine 1.02 ng/mL (0.78-2.19)
[2023-08-07 17:23] LABS: Triiodothyronine T3 Free 3.4 pg/mL (2.3-4.2)
== END 2023-08-06 07:47 | disposition home or self-care (01) ==
PROVIDERS: PCP Physician Assistant; Visit Provider Physician Assistant
DX: E05.90 Thyrotoxicosis, unspecified without thyrotoxic crisis or storm (principal); Z12.5 Encounter for screening for malignant neoplasm of prostate; E78.2 Mixed hyperlipidemia; R73.03 Prediabetes
CPT/HCPCS: 36415; 80061; 83036; 84153; 84439; 84443; 84481; G0103

== ENCOUNTER 2024-01-29 09:25 | Outpatient (CLI) | payer OTHER, SELFPAY ==
[2024-02-18 13:08] VITALS: BMI 32.5
--- NOTE | 2024-02-18 13:08 | WPDHOMESLEEP ---
Sleep Study - Home Unattended Date of Study: 01/29/24 Ordering Provider: INNA hZao Interpreting Provider: Tona Baeza, DO Home Sleep Study Type: Watch PAT Height: 1.75 m Weight: 99.79 kg Body Mass Index: 32.5 Neck Circumference (inches): 16.5 [place]: 5 Reason for Sleep Study Re-evaluation of SASHA while using Mandibular Advancement Device Sleep History Simon Tilley is a 48 year male with mild obstructive sleep apnea who is here for re-evaluation of his sleep apnea while using his Mandibular Advancement Device. He rarely awakens from sleep short of breath.? He occasionally awakens at night with heartburn, belching or cough.? He constantly snores loudly enough that others complain.? He occasionally has breathing problems at night observed by himself or others.? He denies sweating excessively at night or having heart palpitations or irregular heartbeats during the night.? He denies falling asleep during the day and denies falling asleep while driving.? He denies sleep paralysis, cataplexy and hypnagogic / hypnopompic hallucinations.? He denies having trouble at school or work due to sleepiness.? He denies feeling afraid of going to sleep.? He denies having nightmares.? He rarely remembers his dreams.? He occasionally has thoughts racing through his mind.? He denies feeling sad, depressed or anxious.? He denies having muscular tension.? He frequently notices parts of his body jerk.? He denies kicking during the night.? He denies having crawling and aching feelings in his legs and denies having leg pain during the night.? He occasionally grinds his teeth during sleep but never awakens with morning jaw pain.? He denies being bothered by pain during the day and denies being awakened by pain during the night.? He occasionally wakes up feeling stiff in the morning.? He denies waking up with sore or achy muscles.? He rarely wakes up with pain in the neck, spine or other joints.? He goes to bed between 9-10 p.m. on weekdays and between 10-11 p.m. on the weekends.? He is able to fall asleep within a few minutes.? He wakes up several times throughout the night to urinate, let out the dog or for unknown reasons.? He is able to fall back asleep within a few minutes.? He typically gets 6-8 hours of sleep per night.? He will stay in bed for a few minutes after waking up in the morning.? He currently lives with his and 17-year-old child.? He will consume tea within 2 hours of bedtime.? He does not engage in physical exercise before bedtime.? He will watch television before falling asleep.? He denies taking naps in the afternoon or the evening.? Habits: He drinks caffeinated beverages throughout the day.? He denies tobacco, alcohol and recreational substance use. COUNT INCLUDES THE [facility] Past Medical History Medical History Dyslipidemia GERD (gastroesophageal reflux disease) Hyperthyroidism SASHA (obstructive sleep apnea) Thyroid disease Surgical History Surgical History S/P nasal surgery Family History Family History Grandparent Hyperthyroidism Father Cancer Social History Social History Smoking status: Never smoker Alcohol intake: never Substance use: never Substance use type: does not use Do You Feel Safe in your Home?: Yes Lack of Transportation: No Lack of Food: Never True Current Housing: I Have Housing Concerned About Future Housing: No Difficulty Paying Gas/Electric Bills: No Difficulty Paying for Meds: No Currently Unemployed: No Education: Master's Degree or Higher Difficulty w/ Childcare or Family Care: No Living arrangements: with family Occupation/Education: occupation 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 Prior to using the device, the patient received verbal and written instructions for its application and was provided with the help desk phone number for additional telephonic instruction with 24-hour availability of qualified personnel to answer questions. The study was scored using CMS guidelines. Sleep Architecture The total recording time is 8 hrs, 4 min. The total sleep time is 6 hrs, 57 min. Sleep latency is 10 minutes. REM latency is 63 minutes. The patient had 10 episodes of waking. Sleep architecture shows 22.3% deep sleep, 52.5% light sleep, and (as % Total Sleep Time) showed NREM (Light 52.5%; Deep 22.3%), and a 25.3% stage REM. The patient spent 27.2% of total sleep time in the supine position. Sleep efficiency was 86.16. Respiratory Analysis The overall AHI (pAHI 4%:) is 3.6. The central AHI is 0.2. The AHI was 2.7 in NREM and 6.4 in REM sleep. The AHI was 9.6 in Supine and 1.4 in Non-supine sleep. Percent of Yash Andrade respirations is 0.0. Oximetry Data The oxygen desaturation index (UBALDO 4%:) is 3.3. The mean saturation is 96%, and the lowest saturation is 83%. Time spent with saturation < 88% is 0.1 minutes. Snoring Profile Snoring average intensity is 41 dB. The patient snored above 45 decibels for 13.9 minutes, 3.3% of sleep time. Cardiac Profile The average pulse rate is 66 beats per minutes. The lowest pulse rate is 47 bpm. The highest pulse rate reported is 103 bpm. Atrial fibrillation was not detected. Premature beats occur <0.1 per minute. Assessment and Plan Assessment and Plan (1) SASHA (obstructive sleep apnea): Code(s): G47.33 - Obstructive sleep apnea (adult) (pediatric) Status: Acute Assessment and Plan: The patient completed this home sleep test while using his Mandibular Advancement Device at a setting of 11 full turns. The patient had an overall AHI of 3.6 with desaturation down to 83%. The patient's sleep apnea is well controlled well using the mandibular advancement device at its current settings. I recommend that the patient continue to use the oral appliance whenever he sleeps. Data The data obtained during this sleep study is adequate for interpretation. Certification This sleep study has been reviewed by a board certified sleep medicine physician.
== END 2024-02-05 10:00 | disposition home or self-care (01) ==
PROVIDERS: PCP Physician Assistant; Visit Provider Physician Assistant
DX: G47.33 Obstructive sleep apnea (adult) (pediatric) (principal)
CPT/HCPCS: 95800

== ENCOUNTER 2024-03-10 07:50 | Outpatient (CLI) | payer OTHER, SELFPAY ==
[2024-03-10 08:01] LABS: Hematocrit 46.2 % (42.0-52.0); Hemoglobin 15.8 g/dL (14.0-18.0); Mean Corpuscular HGB Conc 34.2 g/dl (32-36); Mean Corpuscular Hemoglobin 29.6 pg (26-34); Mean Corpuscular Volume 86.5 fl (80-100); Mean Platelet Volume 10.8 fl (7.4-10.4); Platelet Count Result 172 k/mm3 (150-375); Red Blood Count 5.34 M/mm3 (4.6-6.20); Red Cell Distribution Width 13.2 % (11.5-14.5); White Blood Count 5.6 K/mm3 (4.5-10.0)
[2024-03-10 08:12] LABS: Alanine Aminotransferase 59 U/L (6-50); Albumin Level 4.5 g/dL (3.5-5.1); Alkaline Phosphatase 48 U/L (38-126); Anion Gap 8 mmol/L (4-12); Aspartate Amino Transferase 44 U/L (17-59); Bilirubin,Total 0.3 mg/dL (0.2-1.3); Blood Urea Nitrogen 18 mg/dL (9-20); Calcium 9.2 mg/dL (8.4-10.2); Carbon Dioxide 27 mmol/L (22-30); Chloride 107 mmol/L (98-107); Estimated Glomerular Filt Rate > 60; Glucose 88 mg/dL (65-110); Potassium 4.4 mmol/L (3.4-5.0); Sodium 142 mmol/L (137-145)
[2024-03-10 08:35] LABS: Free T4 Free Thyroxine 0.82 ng/mL (0.78-2.19)
== END 2024-03-10 07:51 | disposition home or self-care (01) ==
PROVIDERS: PCP Physician Assistant; Visit Provider Internal Medicine Endocrinology, Diabetes & Metabolism
DX: E05.90 Thyrotoxicosis, unspecified without thyrotoxic crisis or storm (principal)
CPT/HCPCS: 36415; 80053; 84439; 84443; 85027

== ENCOUNTER 2024-04-28 09:01 | Outpatient (CLI) | payer OTHER, SELFPAY ==
--- NOTE | ~2024-04-28 | US_ITS ---
Limited ABDOMINAL ULTRASOUND (Doppler ultrasound interrogation techniques used as needed for this exa m.) Ordering provider: Fannie Salamanca MD History: . evaluate fatty liver . Comparison: None. FINDINGS: PANCREAS: Normal echotexture and size. PORTAL VEIN: Hepatopedal flow demonstrated. LIVER: Normal size and increased echotexture. The liver measures 15.6 cm. Fat sparring area is seen a djacent to the gallbladder. Otherwise, No focal hepatic lesions or perihepatic fluid collections are identified. BILIARY DUCTS: No intra or extrahepatic biliary dilation. Common bile duct measures 2.8 mm in diamete r which is normal for patient's age. GALLBLADDER: Normal. No stones, sludge, gallbladder wall thickening or pericholecystic fluid. Measures 1.9 mm. Negative sonographic Camejo's sign. RIGHT KIDNEY: Normal size. The kidney measures 10.9 x 4.7 x 7.1 cm. No hydronephrosis, solid renal ma ss, renal calculi or perinephric fluid collections. No renal cysts. FREE FLUID: None visualized within the upper abdomen. IMPRESSION: Fat infiltration of the liver. Otherwise, normal right upper quadrant ultrasound. Reviewed, dictated and finalized at location A. ER GAUGER IMPRESSION: Fat infiltration of the liver. Otherwise, normal right upper quadrant ultrasoun d.
[2024-04-28 10:04] LABS: Free T4 Free Thyroxine 0.86 ng/dL (0.78-2.19)
--- OUTSIDE RECORDS SUMMARY | 2024-05-04 22:41 | XMS_ITS | Continuity of Care Document ---
Author Name [facility] Organization [facility] Care Team Providers Care Professor Of Business Administration Name Role Phone [facility] Unavailable Unavailable Social History Combined list of available smoking, tobacco, and other social history from Department of Defense and Veterans Affairs facilities. Social History Type Response Date Comment Sourc e This section is an empty social history section. Do[facility]
--- OUTSIDE RECORDS SUMMARY | 2024-05-04 22:42 | XMS_ITS | Encounter Summary ---
Author Organization [facility] Address [facility]. [place], [place] [address] [place] [address] Care Team Providers Care Piece Hand Name Role Phone Pollo Warren MD Primary Care Provider + [phone] Pollo Warren MD Primary Care Provider + [phone] Pollo Warren MD Primary Care Provider + [phone] Encounter Details Date Type Department Care Team (Late st Contact Info) Description 07/02/[address] [facility] [place] [address] Sharon Landrum MD Social History Tobacco Use Types Packs/Day Years Used Date Smoking Tobacco: Never Assessed Sex and Gender Information Value Date Recorded Sex Assigned at Not on file Legal Sex Male 8:31 PM CDT Gender Identity Not on file Sexual Orientation Not on file documented as of this encounter Plan of Treatment Not on file documented as of this encounter Visit Diagnoses Not on filedocumented in this encounter Care Teams Piece Hand Relationship Specialty Start Date End Date Pollo Warren MD [address] [address] PCP - General 03/02/16 Pollo Warren MD [address] [address] PCP - General 02/07/16 03/01/16 Pollo Warren MD [address] [address] PCP - General 06/28/12 02/06/16 documented as of this encounter
--- OUTSIDE RECORDS SUMMARY | 2024-05-04 22:42 | XMS_ITS | Encounter Summary ---
Author Organization [facility] Address [address] [place] [address]. [place], [place] [address] [place] [address] Care Team Providers Care Top Precipitator Operator Helper Name Role Phone Pollo Warren MD Primary Care Provider +1- [phone] Encounter Details Date Type Department Care Team (Latest Contact Info) Description 03/02/[address] [facility] Froy Joseph MD [address] [place] [address] [address] [place] [address] Social History Tobacco Use Types Packs/Day Years Used Date Smoking Tobacco: Never Assessed Sex and Gender Information Value Date Recorded Sex Assigned at Not on file Legal Sex Male 8:31 PM CDT Gender Identity Not on file Sexual Orientation Not on file documented as of this encounter Plan of Treatment Not on file documented as of this encounter Procedures Procedure Name Priority Date/Time Associated Diagnosis Comments SURG XR KNEE LT 1-2V Routine 03/02/2016 3:04 PM MANAGER WATER documented in this encounter Results * SURG XR KNEE LT 1-2V (03/02/2016 3:04 PM MANAGER WATER) Anatomical Region Laterality Modality Knee IMAGES ONLY 03/02/2016 3:04 PM MANAGER WATER 03/02/2016 3:04 PM MANAGER WATER Narrative 03/02/2016 3:17 PM MANAGER WATER RAMA TILLEY ? ADMIT/SERVICE DATE: 03/02/16 ?? ACCT: [id number] ?DISCHARGE DATE: ?? : 1975 ??SEX: M ?ORD SITE: [facility] ?? PT TYPE: REG SDC ? ORDERING MD: FROY JOSEPH MD ? STUDY DATE ? REPORT # ?ORDER # ? EXT ORDER ID ?? 03/02/16 ? [id number] ? [id number] ?[id number] ? PROC CODE: ? [id number] ? PROCEDURE DESCRIPTION: ?? XR KNEE 1 TO 2 VIEWS LT ? IMPRESSION: ?? LIMITED SINGLE FLUOROSCOPIC VIEW LEFT KNEE ? EXAMINATION: LEFT KNEE ONE VIEW ? EXAM DATE/TIME: 03/02/2016 2:18 PM ? CLINICAL HISTORY: ANTERIOR CRUCIATE LIGAMENT REPAIR REVISION, KNEE PAIN ? COMPARISON: NONE. ? TECHNIQUE: LIMITED INTRAOPERATIVE FLUOROSCOPIC VIEW LEFT KNEE ? FINDINGS: THERE IS METALLIC WASHER ALONG THE DISTAL FEMUR. THERE WAS 33 ?? SECONDS OF FLUOROSCOPY TIME UTILIZED ? ELECTRONICALLY SIGNED BY: LISA RAZA03/02/2016 3:13 PM ? Procedure Note Sharon Landrum MD - 02/13/2018 RAMA TILLEY ADMIT/SERVICE DATE:03/02/16 ACCT: [id number] DISCHARGE DATE: : 1975 SEX: M ORD SITE: [facility] PT TYPE: REG SDC ORDERING MD:FROY JOSEPH MD STUDY DATE REPORT # ORDER # EXT ORDER ID 03/02/16 [id number] PROC CODE: [id number] PROCEDURE DESCRIPTION: XR KNEE 1 TO 2 VIEWS LT IMPRESSION: LIMITED SINGLE FLUOROSCOPIC VIEW LEFT KNEE EXAMINATION: LEFT KNEE ONE VIEW EXAM DATE/TIME: 03/02/2016 2:18 PM CLINICAL HISTORY: ANTERIOR CRUCIATE LIGAMENT REPAIR REVISION, KNEE PAIN COMPARISON: NONE. TECHNIQUE: LIMITED INTRAOPERATIVE FLUOROSCOPIC VIEW LEFT KNEE FINDINGS: THERE IS METALLIC WASHER ALONG THE DISTAL FEMUR. THERE WAS 33 SECONDS OF FLUOROSCOPY TIME UTILIZED ELECTRONICALLY SIGNED BY: LISA RAZA03/02/2016 3:13 PM us Froy Joseph MD IMAGES ONLY Final Result documented in this encounter Visit Diagnoses Not on filedocumented in this encounter Care Teams Top Precipitator Operator Helper Relationship Specialty Start Date End Date Pollo Warren MD [address] [address] PCP - General 03/02/16 documented as of this encounter
--- OUTSIDE RECORDS SUMMARY | 2024-05-04 22:42 | XMS_ITS | Encounter Summary ---
Author Organization [facility] Address [address] [place] [address]. [place], [place] [id number] [place] [address] Care Team Providers Care Senior Center Director Name Role Phone Pollo Warren MD Primary Care Provider +1- [phone] Encounter Details Date Type Department Care Team (Latest Contact Info) Description 04/05/2016 Abstract [facility] Social History Tobacco Use Types Packs/Day Years [...] on filedocumented in this encounter Care Teams Senior Center Director Relationship Specialty Start Date End Date Pollo Warren MD [address] [place] [address] PCP - General 03/02/16 documented as of this encounter
--- OUTSIDE RECORDS SUMMARY | 2024-05-04 22:42 | XMS_ITS | Encounter Summary ---
Author Organization [facility] Address [address] [place] [address]. [place], [place] [address] [place] [address] Care Team Providers Care Security Installation Sales Technician Name Role Phone Pollo Warren MD Primary Care Provider +1- [phone] Encounter Details Date Type Department Care Team (Latest Contact Info) Description 04/19/2016 Abstract [facility] Social History Tobacco Use Types [...] on filedocumented in this encounter Care Teams Security Installation Sales Technician Relationship Specialty Start Date End Date Pollo Warren MD [address] [place] [address] PCP - General 03/02/16 documented as of this encounter
--- OUTSIDE RECORDS SUMMARY | 2024-05-04 22:42 | XMS_ITS | Encounter Summary ---
Author Organization [facility] Address [facility] [place] [address] [place] [address] Care Team Providers Care Supervisor Lathing Name Role Phone Pollo Warren MD Primary Care Provider +1- [phone] Encounter Details Date Type Department Care Team (Late st Contact Info) Description 03/08/2016 Abstract [facility] Medical [facility] [address] [facility], [address] [place] [address] Gasper Joseph MD [address] [place] [address] [address] [place] [address] Social History Tobacco Use Types Packs/Day Years Used Date Smoking Tobacco: Never Assessed Sex and Gender Information Value Date Recorded Sex Assigned at Not on file Legal Sex Male 8:31 PM CDT Gender Identity Not on file Sexual Orientation Not on file documented as of this encounter Progress Notes * Gasper Joseph MD - 03/08/2016 12:15 PM CST Post-Op HPI: Mr. Tilley returns status post left knee revision ACL reconstruction and partial medial meniscectomy. He notes no fevers, chills, nausea or vomiting but has had some swelling in his foot. He notes no calf pain, no shortness of breath, no chest pain. He has had no new injury. PHYSICAL EXAM: Physical exam today reveals the following: He is alert and oriented x3. He is in no acute distress.His affect is appropriate. He is using crutches and brace and can get on and off the exam table with assistance. The left lower extremity reveals the following: The skin is intact from the inguinal fold to the toe tips in the left lower extremity. The compartments of the left thigh, leg and foot are soft. Jose Angel?s sign is negative bilaterally. Dorsalis pedal pulse is 2/3 bilaterally. EHL, gastrosoleus and tibialis anterior are 5/5 in the left lower extremity. There is no warmth, fluctuance, erythema or drainage in the left lower extremity. His incisions are clean, dry and well healed. He does have some swelling distal to the ankle which looks to be related to a tight ROEL wrap as he does have some indentation of the skin. ASSESSMENT AND PLAN: The patient?s knee looks to be doing well. I have showed him proper wrapping of the leg to avoid constriction at the ankle. He is to elevate as much as possible and do calf pumps. He was givena sheet shows him how to work on 5deg passive hyperextension and heel slides. We will see him as scheduled for suture removal. He declines pain medication. He can call for any problems or concerns. Orders 1. Physical Therapy Referral Outpatient Eval and Tx per Protocol Status: Hold For - Scheduling Requested for: [id number] Results/Data 02 Mar 2016 3:04 PM XR KNEE 1-2 VIEW LT ( Routine ) XR KNEE 1-2 VIEW LT Signatures Electronically signed by : Gasper Joseph M.D.; Mar 13 2016 8:20AM CORE WINDER MACHINE OPERATOR (Author) documented in this encounter Plan of Treatment Not on file documented as of this encounter Visit Diagnoses Not on filedocumented in this encounter Care Teams Supervisor Lathing Relationship Specialty Start Date End Date Pollo Warren MD [address] [address] PCP - General 03/02/16 documented as of this encounter
--- OUTSIDE RECORDS SUMMARY | 2024-05-04 22:42 | XMS_ITS | Encounter Summary ---
Author Organization [facility] Address [facility]. [place], [place] [id number] [place] [address] Care Team Providers Care Brine Tank Operator Name Role Phone Pollo Warren MD Primary Care Provider +[phone]- [phone] Encounter Details Date Type Department Care Team (Late st Contact Info) Description 03/13/2016 Abstract [facility] Medical [facility] - [facility] [address] [facility], [address] [place] [address] Gasper Joseph MD [address] [place] [address] [address] [place] [address] Social History Tobacco Use Types Packs/Day Years Used Date Smoking Tobacco: Never Assessed Sex and Gender Information Value Date Recorded Sex Assigned at Not on file Legal Sex Male 8:31 PM CDT Gender Identity Not on file Sexual Orientation Not on file documented as of this encounter Progress Notes * Gasper Joseph MD - 03/13/2016 8:45 AM CST Post-Op HPI: Mr. Tilley returns status post left knee revision ACL and partial medial meniscectomy. He states hisswelling is a little bit better in the foot. He still has a little bit of discomfort in his calf. PHYSICAL EXAM: Physical exam today reveals the following: He is alert and oriented x3. He is in no acute distress.Examination of the left lower extremity reveals the following: The skin is intact from the inguinalfold to the toe tips in the left lower extremity. The compartments of the left thigh, leg and foot are soft. Jose Angel?s sign is negative bilaterally. Dorsalis pedal pulse is 2/3 bilaterally. EHL,gastrosoleus and tibialis anterior are 5/5 in the left lower extremity. There is no warmth, fluctuance, erythema or drainage in the left lower extremity. His incisions are clean, dry and healing well. There is no fluctuance, erythema or drainage. He can get full passive 5-degree hyperextension but he is a little stiff with it last time. He flexes to 90 degrees. His swelling is markedly decreased in the foot. His calf exam is benign. ASSESSMENT AND PLAN: Overall, the patient is doing well. His sutures are discontinued and his arthroscopy photos are reviewed. We are going to continue with the postop protocol for the ACL and this was reviewed with him.He is complaining of some pain over his trapezius and he was tender there. I did a trigger point injection here. After verbal consent under sterile prep, this trigger point was injected with 2 cc of 1% lidocaine and 40 mg of Kenalog with good relief. We will let the therapist work with the shoulderas well. I would like to see him in 2 weeks for recheck. I did review with him continuing his passive hyperextension. He has been on his feet quite a bit and I reviewed with him that proper elevationis with the foot over the level of the heart and he really has not been doing this. He can loosen the brace as well when he is not sleeping or ambulating. He can call for any problems or concerns. Otherwise, I will see him in 2 weeks. I did give him tramadol for pain. Orders 1. TraMADol HCl - 50 MG Oral Tablet; TAKE 1 TO 2 TABLETS EVERY 6 HOURS NEEDED FOR PAIN 2. Physical Therapy Referral Outpatient Eval and Tx Left shoulder Status: Hold For - Scheduling Requested for: 13Mar2016 Signatures Electronically signed by : Gasper Joseph M.D.; Mar 19 2016 5:01PM RADAR ENGINEER (Author) documented in this encounter Plan of Treatment Not on file documented as of this encounter Visit Diagnoses Not on filedocumented in this encounter Care Teams Brine Tank Operator Relationship Specialty Start Date End Date Pollo Warren MD [address] [place] [address] PCP - General 03/02/16 documented as of this encounter
--- OUTSIDE RECORDS SUMMARY | 2024-05-04 22:42 | XMS_ITS | Encounter Summary ---
Author Organization [facility] Address [facility]. [id number] [place] [address] Care Team Providers Care Logging Shovel Operator Name Role Phone Pollo Warren MD Primary Care Provider + [phone] Pollo Warren MD Primary Care Provider + [phone] Pollo Warren MD Primary Care Provider + [phone] Encounter Details Date Type Department Care Team (Late st Contact Info) Description 06/28/[address] [facility] [address] [place] [address] Cleo Lang MD [address] [place] [address] Social History Tobacco Use Types Packs/Day Years Used Date Smoking Tobacco: Never Assessed Sex and Gender Information Value Date Recorded Sex Assigned at Not on file Legal Sex Male 8:31 PM CDT Gender Identity Not on file Sexual Orientation Not on file documented as of this encounter Plan of Treatment Not on file documented as of this encounter Visit Diagnoses Diagnosis Acute upper respiratory infection Acute upper respiratory infections of unspecified site documented in this encounter Care Teams Logging Shovel Operator Relationship Specialty Start Date End Date Pollo Warren MD [address] [facility] [address] [place] [address] PCP - General 03/02/16 Pollo Warren MD [address] [facility] [address] [place] [address] PCP - General 02/07/16 03/01/16 Pollo Warren MD [address] [place] [address] PCP - General 06/28/12 02/06/16 documented as of this encounter
--- OUTSIDE RECORDS SUMMARY | 2024-05-04 22:42 | XMS_ITS | Encounter Summary ---
Author Organization [facility] Address [facility]. [place], [place] [address] [place] [address] Care Team Providers Care Paper Twister Name Role Phone Pollo Warren MD Primary Care Provider +- [phone] Pollo Warren MD Primary Care Provider + [phone] Pollo Warren MD Primary Care Provider + [phone] Encounter Details Date Type Department Care Team (Latest Contact Info) Description 01/24/2016 Abstract [facility] Social History [...] on filedocumented in this encounter Care Teams Paper Twister Relationship Specialty Start Date End Date Pollo Warren MD [address] [address] PCP - General 03/02/16 Pollo Warren MD [address] [id number] PCP - General 02/07/16 03/01/16 Pollo Warren MD [address] [id number] PCP - General 06/28/12 02/06/16 documented as of this encounter
--- OUTSIDE RECORDS SUMMARY | 2024-05-04 22:42 | XMS_ITS | Encounter Summary ---
Author Organization [facility] Address [address] [place] [address]. [place], [place] [id number] [place] [id number] Care Team Providers Care Orthopedic Specialist Name Role Phone Pollo Nicolas MD Primary Care Provider [phone] Reason for Visit * Reason Comments Chest Pain Encounter Details Date Type Department Care Team (Late st Contact Info) Description 05/17/2017 12:24 PM INS[facility] - 05/17/2017 1:30 PM [facility] Hospital Encounter [facility] [address] [place] [address] Tona Lemos APCECILY Chest Pain Discharge Disposition: Home or Self Care (Routine Discharge) Social History Tobacco Use Types Packs/Day Years Used Date Smoking Tobacco: Never Smokeless Tobacco: Never Alcohol Use Standard Drinks/Week Comments No 0 (1 standard drink = 0.6 oz pur e alcohol) Sex and Gender Information Value Date Recorded Sex Assigned at Not on file Legal Sex Male 8:31 PM CDT Gender Identity Not on file Sexual Orientation Not on file documented as of this encounter Last Filed Vital Signs Vital Sign Reading Time Taken Comments Blood Pressure 141/92 05/17/2017 12:24 PM [facility] [employer] [facility] Pulse 73 05/17/2017 12:24 PM [facility] [employer] [facility] Temperature 36.6 ??C (97.9 ??F) 05/17/2017 12:[address] Respiratory Rate 16 05/17/2017 12:24 PM [facility] [employer] Oxygen Saturation 98% 05/17/2017 12:24 PM [facility] [employer] [facility] Inhaled Oxygen Concentration - - Weight 86.2 kg (190 lb) 05/17/2017 12:24 PM [facility] [employer] [facility] Height 175.3 cm (5' 9 ) 05/17/2017 12:24 PM [facility] [employer] Body Mass Index 28.06 05/17/2017 12:24 PM [facility] [employer] documented in this encounter Discharge Instructions * Discharge Instructions* Tona Cristian Lemos, VAZQUEZ - 05/17/2017 1:16 PM [facility] [employer] Images from the original note were not included. Costochondritis Discharge Instructions About this topic Your chest wall is made up of bones and cartilage. These protect the lungs and heart. Costochondritis is a pain or discomfort felt in your chest from your chest wall. You may feel a sharp stabbing oraching pain in your ribs. The area will likely be painful to touch. It often hurts worse when you take a deep breath or do certain movements. This illness can be caused by: ?? An injury to the ribs ?? A strain from exercise or putting too much stress on your body ?? Repeated coughing Costochondritis can go away after a few days even without treatment. Your doctor may give you drugsto help with pain. What care is needed at home? ?? Ask your doctor what you need to do when you go home. Make sure you ask questions if you do not understand what the doctor says. This way you will know what you need to do. ?? Get lots of rest. ?? If the chest pain is because of coughing, put a cool-mist humidifier in your room. ?? For coughing, hold a pillow to your chest with your arms for support. ?? If your doctor tells you to use heat to help with pain, put a heating pad on your sore area for no more than 20 minutes at a time. Never go to sleep with a heating pad on as this can cause telles. ?? Avoid moving your arms and shoulders if it causes pain. What follow-up care is needed? Your doctor may ask you to make visits to the office to check on your progress. Be sure to keep these visits. What drugs may be needed? The doctor may order drugs to: ?? Help with pain ?? Reduce cough Will physical activity be limited? ?? Limit movements that can trigger your chest wall pain. ?? You may have to limit your activities until your pain is gone. You can slowly increase your normal activities. Talk to your doctor about the right amount of activity for you. What problems could happen? Your pain may come back What can be done to prevent this health problem? ?? Avoid lifting heavy objects. This can pull your chest muscles. ?? Avoid activities that can injure your chest. When do I need to call the doctor? ?? Sudden breathing problems ?? Coughing up blood ?? Pain does not get better in a few days Helpful tips Try to relax when you feel pain in your chest. Slow, deep breathing will help. Teach Back: Helping You Understand The Teach Back Method helps you understand the information we are giving you. The idea is simple. After talking with the staff, tell them in your own words what you were just told. This helps to makesure the staff has covered each thing clearly. It also helps to explain things that may have been abit confusing. Before going home, make sure you are able to do these: ?? I can tell you about my condition. ?? I can tell you what may help ease my pain. ?? I can tell you what I will do if I have trouble breathing, I cough up blood, or my pain does notgo away. Where can I learn more? [facility] http://www.aafp.org/afp//p617-s1.html [facility] http://kidshealth.org/parent/medical/bones/costochondritis.html Last Reviewed Date 2014-08-03 Consumer Information Use and Disclaimer This information is not specific medical advice and does not replace information you receive from your health care provider. This is only a brief summary of general information. It does NOT include all information about conditions, illnesses, injuries, tests, procedures, treatments, therapies, discharge instructions or life-style choices that may apply to you. You must talk with your health care provider for complete information about your health and treatment options. This information should not be used to decide whether or not to accept your health care provider???s advice, instructions or recommendations. Only your health care provider has the knowledge and training to provide advice that is right for you. Copyright Copyright ?? 2017 [employer] and its affiliates and/or licensors. All rights reserved. [facility] [employer] [facility] documented in this encounter Medications at Time of Discharge ketorolac 10 MG tablet Take 1 tablet (10 mg total) by mouth every 6 (six) hours as needed for Pain. 20 tablet 05/17/2017 05/22/2017 predniSONE 20 MG tablet Take 3 tablets (60 mg total) by mouth daily for 5 days. 15 tablet 05/17/2017 05/22/2017 documented as of this encounter ED Notes * VAZQUEZ Oliveira - 05/17/2017 12:35 PM [address]ST Images from the original note were not included. Chief Complaint Chief Complaint Patient presents with ??? Chest Pain History of Present Illness HPI Comments: To with complaints of having a couple of weeks of a dry, persistent cough and painin the center of his chest with movement, cough or with palpation of the chest wall. NO productivity and no fevers. NO CP, SOB, GI or complaints. Patient is a 41-year-old male presenting with chest pain. Chest Pain Associated symptoms: cough Medical History ALLERGIES: Allergies Allergen Reactions ??? Morphine Itching MEDICATIONS: Prior to Admission medications Medication Sig Start Date End Date Taking? Authorizing Provider ketorolac 10 MG tablet Take 1 tablet (10 mg total) by mouth every 6 (six) hours as needed for Pain.05/17/17 05/22/17 Yes VAZQUEZ Oliveira predniSONE 20 MG tablet Take 3 tablets (60 mg total) by mouth daily for 5 days. 05/17/17 05/22/17 YesVAZQUEZ Oliveira PAST MEDICAL HISTORY: History reviewed. No pertinent past medical history. PAST SURGICAL HISTORY: No past surgical history on file. FAMILY HISTORY: No family history on file. SOCIAL HISTORY: Social History Substance Use Topics ??? Smoking status: Never Smoker ??? Smokeless tobacco: Never Used ??? Alcohol use No Review of Systems Review of Systems Respiratory: Positive for cough. Cardiovascular: Positive for chest pain. All other systems reviewed and are negative. Physical Exam Filed Vitals: 05/17/17 1224 BP: (!) 141/92 Pulse: 73 Resp: 16 Temp: 97.9 ??F (36.6 ??C) TempSrc: Oral SpO2: 98% Weight: 86.2 kg (190 lb) Height: 5' 9 (1.753 m) Physical Exam Constitutional: He is oriented to person, place, and time. Vital signs are normal. He appears well-developed and well-nourished. No distress. HENT: Head: Normocephalic and atraumatic. Right Ear: External ear normal. Left Ear: External ear normal. Nose: Nose normal. Mouth/Throat: Oropharynx is clear and moist. Neck: Normal range of motion. Neck supple. Cardiovascular: Normal rate, regular rhythm and normal heart sounds. Exam reveals no gallop and no friction rub. No murmur heard. Pulmonary/Chest: Effort normal and breath sounds normal. No respiratory distress. He has no decreased breath sounds. He has no wheezes. He has no rhonchi. He has no rales. He exhibits tenderness. There is tenderness to palpation of the central chest wall with increased tenderness at the bilateral edges of the sternum. Pain is made worse with deep inspiration and the palpation. Musculoskeletal: Normal range of motion. Neurological: He is alert and oriented to person, place, and time. Skin: Skin is warm and dry. No rash noted. He is not diaphoretic. No erythema. No pallor. Psychiatric: He has a normal mood and affect. His behavior is normal. Judgment and thought content normal. Nursing note and vitals reviewed. Diagnostic Studies / Procedures ELECTROCARDIOGRAMS: No results found for this visit on 05/17/17. LABORATORY STUDIES: No results found for this visit on 05/17/17. IMAGING STUDIES XR CHEST PA+LAT Final Result by User, [id number] (05/17 1303) Examination: Chest x-ray 2 view Exam date/time: 05/17/2017 12:44 PM Reason For Exam: Costochondritis Cough, chest pain Comparison: None Technique: PA and lateral views of the chest were obtained. Findings: Heart size and pulmonary vasculature are within normal limits. There are no pulmonary consolidations. There are no pleural effusions. =====IMPRESSION:===== There is no acute process within the chest. Course / Medical Decision Making MDM Number of Diagnoses or Management Options Amount and/or Complexity of Data Reviewed Tests in the radiology section of CPT??: ordered and reviewed Risk of Complications, Morbidity, and/or Mortality Presenting problems: minimal Diagnostic procedures: minimal Management options: minimal Patient Progress Patient progress: stable Clinical Impression Costochondritis, acute (Primary) Disposition: Discharge Discharge Instruction 05/17/2017 Simon Tilley Problem Date Reviewed: 05/17/2017 None Allergies as of 05/17/2017 Reactions Morphine Itching Follow-up Information Follow up with POLLO NICOLAS MD. Specialty: FAMILY PRACTICE Contact information: [id number] [facility] [address] Home Medication List START taking these medications Details ketorolac 10 MG tablet Commonly known as: TORADOL Take 1 tablet (10 mg total) by mouth every 6 (six) hours as needed for Pain. predniSONE 20 MG tablet Commonly known as: DELTASONE Take 3 tablets (60 mg total) by mouth daily for 5 days. Where to Get Your Medications You can get these medications from any pharmacy Bring a paper prescription for each of these medications ??? ketorolac 10 MG tablet ??? predniSONE 20 MG tablet Additional Information IF YOU ARE A SMOKER OR HAVE SMOKED IN THE LAST 12 MONTHS, WE ENCOURAGE YOU TO EXPLORE OPTIONS FOR QUITTING. For Stroke Patients: I understand ?? That by carefully controlling and monitoring any of the risk factors listed, I can decrease my risk of future stroke: ??? High Blood Pressure (hypertension) ??? High Blood Cholesterol (hyperlipidemia) ??? Diabetes ??? Smoking ??? Alcohol Abuse ??? Drug Abuse ?? Follow up care with a medical professional is extremely important. Information on who and when to follow up is included in the Follow-up Information section of this document. ?? Proper use of medication to treat your symptoms and prevent future complications is extremely important. Your current prescribed medications are listed in the Home Medication List included in thisdocument. If you have any questions on them, please contact your primary care provider. Stroke warning signs and symptoms that require a 911 call (or activation of the Emergency Medical System): ??? Sudden numbness or weakness of the face, arm or leg, especially on one side of the body. ??? Sudden confusion, trouble speaking or understanding ??? Sudden trouble seeing in one or both eyes ??? Sudden trouble walking, dizziness, loss of balance or coordination. ??? Sudden severe headache with no known cause Patient has been given a copy of written discharge instructions. Thank you for choosing us for your healthcare needs! [employer] is the online tool that empowers you with secure access to your health care information and the ability to communicate with your doctor from any computer, 24 hours a day. If you are not signed up, please go to [employer], click on the Activate Account button. Enter your social security number, date of and the following code: [email or web address] Expires: 08/15/2017 1:17 PM Home Medication List TAKE these medications AM Lunch PM Bedtime ketorolac 10 MG tablet Commonly known as: TORADOL Take 1 tablet (10 mg total) by mouth every 6 (six) hours as needed for Pain. predniSONE 20 MG tablet Commonly known as: DELTASONE Take 3 tablets (60 mg total) by mouth daily for 5 days. Patient Instructions Costochondritis Discharge Instructions About this topic Your chest wall is made up of bones and cartilage. These protect the lungs and heart. Costochondritis is a pain or discomfort felt in your chest from your chest wall. You may feel a sharp stabbing oraching pain in your ribs. The area will likely be painful to touch. It often hurts worse when you take a deep breath or do certain movements. This illness can be caused by: ?? An injury to the ribs ?? A strain from exercise or putting too much stress on your body ?? Repeated coughing Costochondritis can go away after a few days even without treatment. Your doctor may give you drugsto help with pain. What care is needed at home? ?? Ask your doctor what you need to do when you go home. Make sure you ask questions if you do not understand what the doctor says. This way you will know what you need to do. ?? Get lots of rest. ?? If the chest pain is because of coughing, put a cool-mist humidifier in your room. ?? For coughing, hold a pillow to your chest with your arms for support. ?? If your doctor tells you to use heat to help with pain, put a heating pad on your sore area for no more than 20 minutes at a time. Never go to sleep with a heating pad on as this can cause telles. ?? Avoid moving your arms and shoulders if it causes pain. What follow-up care is needed? Your doctor may ask you to make visits to the office to check on your progress. Be sure to keep these visits. What drugs may be needed? The doctor may order drugs to: ?? Help with pain ?? Reduce cough Will physical activity be limited? ?? Limit movements that can trigger your chest wall pain. ?? You may have to limit your activities until your pain is gone. You can slowly increase your normal activities. Talk to your doctor about the right amount of activity for you. What problems could happen? Your pain may come back What can be done to prevent this health problem? ?? Avoid lifting heavy objects. This can pull your chest muscles. ?? Avoid activities that can injure your chest. When do I need to call the doctor? ?? Sudden breathing problems ?? Coughing up blood ?? Pain does not get better in a few days Helpful tips Try to relax when you feel pain in your chest. Slow, deep breathing will help. Teach Back: Helping You Understand The Teach Back Method helps you understand the information we are giving you. The idea is simple. After talking with the staff, tell them in your own words what you were just told. This helps to makesure the staff has covered each thing clearly. It also helps to explain things that may have been abit confusing. Before going home, make sure you are able to do these: ?? I can tell you about my condition. ?? I can tell you what may help ease my pain. ?? I can tell you what I will do if I have trouble breathing, I cough up blood, or my pain does notgo away. Where can I learn more? [facility] http://www.aafp.org/afp/15/p617-s1.html [facility] http://kidshealth.org/parent/medical/bones/costochondritis.html Last Reviewed Date 2014-08-03 Consumer Information Use and Disclaimer This information is not specific medical advice and does not replace information you receive from your health care provider. This is only a brief summary of general information. It does NOT include all information about conditions, illnesses, injuries, tests, procedures, treatments, therapies, discharge instructions or life-style choices that may apply to you. You must talk with your health care provider for complete information about your health and treatment options. This information should not be used to decide whether or not to accept your health care provider???s advice, instructions or recommendations. Only your health care provider has the knowledge and training to provide advice that is right for you. Copyright Copyright ?? 2017 [employer]. and its affiliates and/or licensors. All rights reserved. VAZQUEZ Oliveira 05/17/17 1317 [facility] [facility] * Tona Gaming RN - 05/17/2017 12:27 PM CST Patient here with c/o chest pain. Pain is mid-sternal and intermittent, worse with movement. Pt stated he has had a cough which makes the pain worse. [facility] [employer] documented in this encounter Plan of Treatment Not on file documented as of this encounter Procedures Procedure Name Priority Date/Time Associated Diagnosis Comments XR CHEST PA+LAT STAT 05/17/2017 12:44 PM INS[facility] [employer] documented in this encounter Results * XR CHEST PA+LAT (05/17/2017 12:44 PM INSPECT[facility] [employer]AMES) Anatomical Region Laterality Modality Chest Radiographic Rosana ging 05/17/2017 1:05 PM [employer] [employer] Impressions 05/17/2017 1:06 PM INS[facility] [employer]AMES =====IMPRESSION:===== ?? There is no acute process within the chest. Narrative 05/17/2017 1:06 PM INS[employer] [employer] Examination: Chest x-ray 2 view Exam date/time: 05/17/2017 12:44 PM Reason For Exam: ??Costochondritis ? Cough, chest pain Comparison: None Technique: PA and lateral views of the chest were obtained. Findings: Heart size and pulmonary vasculature are within normal limits. There are no pulmonary consolidations. There are no pleural effusions. ? Procedure Note Husam Bauman MD - 05/17/2017 Examination: Chest x-ray 2 view Exam date/time: 05/17/2017 12:44 PM Reason For Exam: Costochondritis Cough, chest pain Comparison: None Technique: PA and lateral views of the chest were obtained. Findings: Heart size and pulmonary vasculature are within normal limits. There are no pulmonary consolidations. There are no pleural effusions. =====IMPRESSION:===== There is no acute process within the chest. [facility] Final Res ult documented in this encounter Visit Diagnoses Diagnosis Costochondritis, acute- Primary Tietze's disease documented in this encounter Care Teams Orthopedic Specialist Relationship Specialty Start Date End Date Pollo Nicolas MD [address] [address] PCP - General 03/02/16 documented as of this encounter
--- OUTSIDE RECORDS SUMMARY | 2024-05-04 22:42 | XMS_ITS | Encounter Summary ---
Author Organization [facility] Address [facility]6 [facility]. [place], [place] [address] [place] [address] Care Team Providers Care Heel Reducer Name Role Phone Pollo Warren MD Primary Care Provider +1- [phone] Pollo Warren MD Primary Care Provider +1- [phone] Encounter Details Date Type Department Care Team (Late st Contact Info) Description 02/07/2016 Abstract [facility] Multispecialty Care - [facility] [address] [facility] [address] [place] [id number] Gasper Joseph MD [address] [place] [address] [address] [place] [id number] Social History Tobacco Use Types Packs/Day Years Used Date Smoking Tobacco: Never Assessed Sex and Gender Information Value Date Recorded Sex Assigned at Not on file Legal Sex Male 8:31 PM CDT Gender Identity Not on file Sexual Orientation Not on file documented as of this encounter Last Filed Vital Signs Vital Sign Reading Time Taken Comments Blood Pressure 130/90 02/07/2016 8:36 AM CDT Pulse - - Temperature - - Respiratory Rate - - Oxygen Saturation - - Inhaled Oxygen Concentration - - Weight 90.7 kg (200 lb) 02/07/2016 8:32 AM CDT Height 175.3 cm (5' 9 ) 02/07/2016 8:32 AM CDT Body Mass Index 29.53 02/07/2016 8:32 AM CDT documented in this encounter Progress Notes * Gasper Joseph MD - 02/07/2016 8:30 AM CDT History of Present Illness HPI I am seeing Mr. Tilley today for the first time. He is a 40-year-old unemployed male who comes in complaining of problems with his left knee. In February 2011 he underwent an allograft ACL reconstruction but in October, reinjured the knee. He now notes popping and clicking in the knee with giving way. He had swelling but resolved. He notes no numbness in left lower extremities. Had no skin changes, no redness or fluctuance, erythema or drainage. He has had no fevers, chills, nausea, vomiting, no calf pain or shortness of breath. He thinks the knee will not allow him to get back to work. He takes Aleve. PHYSICAL EXAM: Physical exam today reveals the following: The patient is alert and oriented times 3. His affect isappropriate. He walks without crutch supports and can get on and off the exam table without difficulty. The patient is alert and oriented times three. Affect is appropriate. Oropharynx is clear. Neckis soft with no lymphadenopathy. Chest is clear with full and equal breath sounds. Cardiac reveals a regular rate and rhythm with no murmurs, rubs or gallops. Abdomen is soft with active bowel sounds. Exam of the left lower extremity reveals the following: The left shoulder examination shows a negative Spurling?s sign. The skin is intact circumferentially from the lateral border of the neck to the fingertips. There is no fluctuance, erythema or drainage. The compartments of the arm, forearm and hand are soft with no pain to passive stretch. Neuromotor is intact in the axillary, musculocutaneous, radial, median and ulnar distribution. Radial and ulnar pulses are 2/3+, brisk, and symmetric. He has 45 degree hyperextension, flexed as to 130. There may be a slight effusion. The knee isstable to valgus and varus at 0 to 130 degrees of flexion. Anterior drawer, Bridget?s is positive. He has a grade III pivot. Posterior drawer is negative. He does not have a sag sign. He is stable to valgus and varus at 0 to 130 degrees of flexion. The patella is stable at 0 to 130 degrees of flexion as well. He has positive medial joint line tenderness and positive Gladis?s. No lateral joint line tenderness. Dial testing is negative and the prone position is 0, 30, 60, 90 degrees. He does not have reverse pivot. X-RAYS: X-ray show evidence of a previous ACL reconstruction. MRI shows possible medial meniscus tear and ACL tear. AP The patient has failed his ACL reconstruction. He has an unstable knee with medial meniscus tear. Idiscussed with him arthroscopic debridement of the meniscus tear only with a rehab versus arthroscopy with debridement and revision ACL reconstruction with hamstring tendons. He understands and wishes to proceed. I did discuss with him the possibility of allograft augmentation. The risks, benefits,limitations and alternatives to surgery were discussed at length. Risks include but are not limitedto infection, bleeding, pain, scar, damage to vessels, nerves, bone, muscle, skin, loss of motion, stiffness, laxity, repair failure, arthritis, blood clots, reoperation and . I also discussed with him the risk of ACL graft failure, hardware failure, disease transmission not only HIV and hepatitis. He understands and wishes to proceed. We will follow him after surgery. He will schedule the surgery when it is convenient for him but I think we should do it before he re-injures his knee. I discussed with him the anatomy of the knee, his imaging findings, and the details of the surgical proce dures. Active Problems 1. Left knee pain (719.46) (M25.562) Past Medical History 1. History of High cholesterol (272.0) (E78.00) 2. History of renal calculi (V13.01) (Z87.442) Surgical History 1. History of Hernia Repair 2. History of Knee Surgery Family History Father 1. Family history of malignant neoplasm (V16.9) (Z80.9) Social History ? Never a smoker ?? No alcohol use ?? Occupation Current Meds 1. Advil PM 200-38 MG Oral Tablet; Therapy: (Recorded:[id number]) to Recorded 2. Aleve 220 MG Oral Tablet; Therapy: (Recorded:[id number]) to Recorded 3. Excedrin Migraine TABS; Therapy: (Recorded:[id number]) to Recorded Allergies 1. morphine Vitals Recorded: 07Feb2016 08:36AM Recorded: 07Feb2016 08:32AM Systolic 130 Diastolic 90 Height 5 ft 9 in Weight 200 lb BMI Calculated 29.54 BSA Calculated 2.07 Signatures Electronically signed by : Gasper Joseph M.D.; Feb 18 2016 12:51PM HERBARIUM CURATOR (Author) Electronically signed by : Gasper Joseph M.D.; Feb 20 2016 8:39AM HERBARIUM CURATOR (Author) Electronically signed by : Gasper Joseph M.D.; Mar 01 2016 12:42PM HERBARIUM CURATOR (Author) documented in this encounter Plan of Treatment Not on file documented as of this encounter Visit Diagnoses Not on filedocumented in this encounter Care Teams Heel Reducer Relationship Specialty Start Date End Date Pollo Warren MD [address] [place] [address] PCP - General 03/02/16 Pollo Warren MD [address] [place] [address] PCP - General 02/07/16 03/01/16 documented as of this encounter
--- OUTSIDE RECORDS SUMMARY | 2024-05-04 22:42 | XMS_ITS | Encounter Summary ---
Author Organization [facility] Address [facility]6 [facility]. [place], [place] [address] [place] [address] Care Team Providers Care Surveyor Rod Helper Name Role Phone Pollo Warren MD Primary Care Provider +- [phone] Pollo Warren MD Primary Care Provider + [phone] Pollo Warren MD Primary Care Provider + [phone] Encounter Details Date Type Department Care Team (Late st Contact Info) Description 07/06/2002 Abstract [facility] [address] [place] [address] Sharon Landrum MD Social History Tobacco Use [...] on filedocumented in this encounter Care Teams Surveyor Rod Helper Relationship Specialty Start Date End Date Pollo Warren MD [address] [address] PCP - General 03/02/16 Pollo Warren MD [address] [facility] [address] [place] [address] PCP - General 02/07/16 03/01/16 Pollo Warren MD [address] [address] PCP - General 06/28/12 02/06/16 documented as of this encounter
--- OUTSIDE RECORDS SUMMARY | 2024-05-04 22:42 | XMS_ITS | Encounter Summary ---
Author Organization [facility] Address [facility]6 [facility]. [place], [place] [address] [place] [address] Care Team Providers Care Efficiency Analyst Name Role Phone Pollo Warren MD Primary Care Provider +1- [phone] Pollo Warren MD Primary Care Provider +1- [phone] Pollo Warren MD Primary Care Provider +1- [phone] Encounter Details Date Type Department Care Team (Late st Contact Info) Description 01/20/2016 Abstract [facility] Multispecialty Care - [facility] [address] [facility] [address] [place] [address] Ashish Amos MD [address] [place] [address] Social History Tobacco Use Types Packs/Day Years Used Date Smoking Tobacco: Never Assessed Sex and Gender Information Value Date Recorded Sex Assigned at Not on file Legal Sex Male 8:31 PM CDT Gender Identity Not on file Sexual Orientation Not on file documented as of this encounter Progress Notes * Ashish Amos MD - 01/20/2016 8:30 AM CDT Referred By / Reason Patient was referred by Primary Care Physician Name: Reason: History of Present Illness PRIMARY CARE PHYSICIAN: Dr. Warren CHIEF COMPLAINT: Left knee pain and knee not working right. HISTORY OF PRESENT ILLNESS: Mr. Tilley is a 40-year-old male who injured his knee back in October. He was playing ping pong with his son when he fell awkwardly. He had a lot of swelling and pain and swelling improved over the first couple of weeks but the instability and feeling that his knee does not work right really has not improved over the past couple of months. Swelling definitely is better. Hehad an ACL reconstruction in 2010. This was an allograft reconstruction by Dr. Marcial. He says he had rehab and recovered fine from that and did well. He used to do martial arts and other more physical activity but is not very physical as far as exercise at this point in time. He is not currently working. He is ex- . His complaint is more that the knee is not working right than it is that the knee is hurting. PHYSICAL EXAMINATION: He is alert and oriented, communicating appropriately. He is 5 feet 9, 200 pounds. He ambulates without any problems. He does have a little bit of shortened stride in that left knee. Mild tenderness at the medial joint line also laterally a little bit. No effusion within the knee today. He has full extension. He can flex up to about 120 degrees. No instability or pain with stressing the MCL at 0 and 30 degrees of flexion. He does have loss of his endpoint with Bridget's exam and anterior drawer test. He guards with pivot shift testing. IMAGING: Two views of the knee AP and lateral weightbearing films show no significant arthritic change. He does have evidence of prior ACL reconstruction with tunnels in the tibia and femur evident. ASSESSMENT: Likely repeat ACL disruption. PLAN: We are going to have him go for an MRI to evaluate for intraarticular pathology and ACL tear.I will call him with the results. Review of Systems Constitutional: negative. Head and Face: negative. Eyes: negative. ENT: negative. Cardiovascular: negative. Respiratory: negative. Gastrointestinal: negative. Genitourinary: nocturia. Musculoskeletal: diffuse joint pain, generalized muscle aches, joint swelling, joint stiffness and limping. Integumentary and Breasts: negative. Neurological: difficulty walking. Psychiatric: insomnia. Endocrine: muscle weakness. Hematologic and Lymphatic: negative. Active Problems 1. Left knee pain (719.46) [...] Advil PM 200-38 MG Oral Tablet; Therapy: (Recorded:[id number]) to Recorded 2. Aleve 220 MG Oral Tablet; Therapy: (Recorded:[id number]) to Recorded 3. Excedrin Migraine TABS; Therapy: (Recorded:[id number]) to Recorded Allergies 1. morphine Results/Data XY Knee w Patella Lt NC [id number] 08:59AM Ashish Amos Test Name Result Flag Reference Pacs Image Result Radiology image is available. Click on Image Link above. Plan Left knee pain 1. XY Knee w Patella Lt NC; Status:Complete; Done: [id number] 08:59AM Signatures Electronically signed by : Ashish Amos M.D.; Jan 23 2016 8:41PM BAND TACKER (Author) documented in this encounter Plan of Treatment Not on file documented as of this encounter Procedures Procedure Name Priority Date/Time Associated Diagnosis Comments XR KNEE+SUNRISE LT 3V Routine 01/20/2016 8:59 AM CDT documented in this encounter Results * XR KNEE+SUNRISE LT 3V (01/20/2016 8:59 AM CDT) Anatomical Region Laterality Modality Knee Radiographic Rosana ging 01/20/2016 8:59 AM CDT 01/20/2016 8:59 AM CDT Narrative 01/20/2016 8:59 AM CDT Radiology image is available. Click on Image Link above. Procedure Note Ashish Amos MD - 02/13/2018 Radiology image is available. Click on Image Link above. us Ashish Amos MD GENERAL IMAGING Final Result documented in this encounter Visit Diagnoses Not on filedocumented in this encounter Care Teams Efficiency Analyst Relationship Specialty Start Date End Date Pollo Warren MD [address] [place] [address] PCP - General 03/02/16 Pollo Warren MD [address] [address] PCP - General 02/07/16 03/01/16 Pollo Warren MD [address] [address] PCP - General 06/28/12 02/06/16 documented as of this encounter
--- OUTSIDE RECORDS SUMMARY | 2024-05-04 22:42 | XMS_ITS | Data Portability ---
Author Organization [facility] Address [address] [place] [address] Assessment Encounter Date Assessment Date Assessment LastModified by Organization Details LastModified Time 07/25/2023 07/25/2023 BP great today, checked twice manually, he will have his BP calibrated with nursing staff here or at [employer] where he works, and touch base with me again if numbers remain high. I encouraged thyroidectomy , due to his thyroid nodules, hyperthyroidi sm, volatile thyroid numbers and could possibly be causing a changing BP, as suggested by endocrine. He will talk to her about that at his next appt. [email or web address] Not available 07/25/2023 11:02:11 Plan of Treatment Reminders Order Date Submit Date Provider Last Modified By Organization Details Last Modified Time Details Appointments None recorded. Lab lipid panel, serum 2021 022 [facility], [address], [place], [address], 12:09:20 CMP, serum or plasma 2021 022 [facility], [address], [address], [place], [address], 2 12:09:20 TSH + free T4, serum 2021 022 [facility], [address], [address], [place], [address], 12:43:21 PSA, serum or plasma 2021 022 [email or web address] [facility], [address], [address], [place], [address], 2 12:10:06 CBC 2021 022 [place] [facility], [address], [address], [place], [address], 2 12:43:21 TSH, serum or plasma [address] (Lab), [facility] [address] [place] [address], [address], 3 12:19:59 T4, free, serum [address] (Lab), [address] [place] [address], [address], 3 12:20:00 T3, free, serum or plasma [address] [facility] (Lab), [address] [place] [address], [address], 3 18:57:32 lipid panel, serum [address] [facility] (Lab), [address] [place], [place] [address] [address] [place] [address], [address], 3 19:27:59 CMP, serum or plasma [address] [facility] (Lab), [address] [place] [address], [address], 3 13:31:[address] [facility] (Lab), [facility] [address] [place] [address], [address], 3 13:05:59 HbA1c (hemoglobi n A1c), blood 2022 023 SHILOH In-Office Order, Internal Use Only DO Not Attach Compendium DO Not Attach Compendium, Do Not Delete/merge, [id number] 3 15:41:07 lipid panel, serum 2023 [facility] (Lab), [facility] [address], [address], 4 10:50:38 T3, free, serum or plasma 2023 024 [facility] (Lab), [address] [facility], [place], [address], 4 10:50:38 T4, free, serum 2023 024 [facility] (Lab), [address] [place] [address], [address], 4 10:50:38 TSH, serum or plasma 2023 024 [facility] (Lab), [address] [facility], [place], [address], 4 10:50:38 HbA1c (hemoglobi n A1c), blood [address] [facility] (Lab), [address] [place] [address], [address], 4 13:51:53 PSA, serum or plasma 2023 024 [facility] (Lab), [facility]0 [facility] [address] [place] [address], [address], 4 10:50:38 Referral physical therapist referral - please contact patient to schedule [address] [facility] (Outpatient Physical Therapy), [address], [place], [address], 17:41:29 Procedures None recorded. Surgeries None recorded. Imaging XR, cervical spine 2021 022 [facility], [address] [facility] [address] [facility], [facility], [place], [address], 2 12:10:10 XR, lumbosacra l spine, 2 or 3 view 2021 022 [facility], [address], [facility], [place], [address], 2 16:59:40 XR, thoracic spine, [address] [facility], [address], [facility], [place], [address], 2 15:18:43 Medication Orders atorvastat in 10 mg tablet [address] [facility], [address] [place], [place], [id number], 2 12:10:06 Medrol (Cm) 4 mg tablets in a dose pack 2021 [facility], [address] [place], [place], [id number], 2 10:20:48 Pepcid 40 mg tablet [address] [place] [address] [facility], [address] [place], [place], [id number], 2 12:10:07 cyclobenza linda 5 mg tablet 2021 [facility], [address] [place], [place], [id number], 3 14:41:15 prednisone 20 mg tablet 2021 022 [facility]69442, [address] [facility], [place], [place], [id number], 3 14:41:27 atorvastat in 10 mg tablet 2022 023 [place] Not available 3 12:19:54 famotidine 40 mg tablet 2022 023 [place] Not available 3 12:19:57 atorvastat in 10 mg tablet 2022 023 [place] Not available 3 15:15:49 meloxicam 15 mg tablet 2022 023 [place] Not available 3 15:15:45 famotidine 40 mg tablet 2022 023 [place] Not available 3 15:15:44 atorvastat in 10 mg tablet 2023 024 [place] Not available 4 10:58:57 famotidine 40 mg tablet 2023 024 [place] Not available 4 10:58:59 meloxicam 15 mg tablet 2023 024 [place] Not available 4 10:59:01 Patient TargetsNo targets recorded. Patient Instructions Encounter Date Encounter Id Patient Instructions Last Modified By Organization Details Last Modified Time 11/09/2021 [id number] healthy upper ba ck: exercises [email or web address] Not available 11/09/2021 11:13:52 body mass index: care instructions [email or web address] Not available 11/09/2021 12:28:00 learning about healthy weight [email or web address] Not available 11/09/2021 12:28:00 Simon - Thank aakash rivera for your visit - Use medications as directed. - Review additional exercise/stretching handouts. - Apply low heat to affected area, 20 to 30 min., 2? 3 times daily prior to stretching. - have your imaging studies done at your earliest convenience - results will be available on the patient portal with any additional recommendations from me - please call with an update in 2 weeks - call with any concerns. [email or web address] Not available 11/09/2021 11:15:47 Reason for Referral Physical Therapist Referral for Neck pain please contact patient to schedule Referring Physician: Mary Mohamud, Family Medicine, Encounter Date: 05/23/2021 Results Created Date Observation Date Name Description Value Unit Range Abnormal Flag Note LastModifiedBy Organization Detail LastModifiedTime 03/19/2003/19/2023 HbA1c (hemo globi n A1c), blood HbA1c 5.7 Not Available In-Office Order Internal Use Only DO Not Attach Compendium DO Not Attach Compendium, Do Not Delete/merge, [id number] 03/19/2023 15:18:31 12/03/19 22 12/01/2021 XR, thora cic spine , 3 view No observ ation record ed. [facility] [address] [facility] [address] [facility], [place], [address], 12/04/2021 15:31:29 10/05/19 23 10/02/2022 NM, thyro id scan No observ ation record ed. [email or web address] [place] [id number] [facility] [address], [place], [address], 03/19/2023 14:59:53 02/24/20 24 01/29/2024 sleep study , diagn ostic (PROC ) No observ ation record ed. [email or web address] Not Available 2023 21:33:57 04/28/19 25 04/28/2024 US, abdom en No observ ation record ed. [email or web address] [facility] [address], [place], [address], 04/28/2024 13:09:01 Result Notes None recorded. Problems Name Problem SNOMED Code Status Onset Date Resolution Date Notes Provider Name and Address Organization Details Recorded Time History of calculus of kidney 509477348 Active 2017 Brady Parmar MD Attn: Accounting ,[address] [place], [address] , [facility] 2 11:21:52 Hyperthy roidism 68058606 Active 2018 Brady Parmar MD Attn: Accounting ,[address] [place], [address] , [facility] 2 11:21:18 Indigest ion 535273423 Active 2021 Brady Parmar MD Attn: Accounting ,[address] [place], [address] , [facility] 2 11:21:43 Acute low back pain 644206651 Active 2021 Brady Parmar MD Attn: Accounting ,[address] [place], [address] , [facility] 2 11:21:35 Thoracic back pain 192154316 Active 2021 Brayd Parmar MD Attn: Accounting ,[address] [place], [address] , [facility] 2 11:21:29 Shoulder joint pain 479873022 Completed 201103/22/2012 Location : None;Sev erity: Moderate ;Progres s: Stable;A dded By: Shilpi Castro;Add to Current Problems : NO Brady Parmar MD Attn: Accounting ,[address], [place], [address] [place] [address] , [facility] 2 11:23:44 Acute upper respirat ory infectio n of multiple sites Completed 201407/03/2014 Location : None;Sev erity: Moderate ;Progres s: Stable;A dded By: Lila Gaspar;Add to Current Problems : YES Brady Parmar MD Attn: Accounting ,[address] [place], [address] , [place] [facility] 2 11:23:45 Chronic rhinitis 00758171 Active 2012 Location : None;Sev erity: Moderate ;Progres s: Stable;A dded By: Kandi Warren;Add to Current Problems : NO Not Available [facility] 7 11:01:06 Contact dermatit is 41846320 Completed 201306/01/2013 Location : None;Sev erity: Moderate ;Progres s: Stable;A dded By: Kandi Warren;Add to Current Problems : NO Brady Parmar MD Attn: Accounting ,[address] [place], [address] , [facility] 2 11:23:45 Acute maxillar y sinusiti s 60001315 Completed 201408/01/2014 Location : None;Sev erity: Moderate ;Progres s: Stable;A dded By: Kandi Warren;Add to Current Problems : YES Brady Parmar MD Attn: Accounting ,[address] [place], [address] , [facility] 2 11:23:45 Family history of malignan t neoplasm of prostate 151671977 Active 2014 Location : None;Sev erity: Moderate ;Progres s: Stable;A dded By: Roxie Childers;Add to Current Problems : YES Not Available [facility] 7 11:01:06 Mixed hyperlip idemia 951100946 Active 2013 Location : None;Sev erity: Moderate ;Progres s: Stable;A dded By: Lilian Ghosh;Add to Current Problems : NO Not Available [facility] 7 11:01:06 Foreign body in ear 14064647 Completed 201307/09/2013 Location : None;Sev erity: Moderate ;Progres s: Stable;A dded By: Mary Mohamud;Add to Current Problems : NO Brady Parmar MD Attn: Accounting ,[address] [facility], [place], [address] , [facility] 2 11:23:45 Allergic rhinitis 85802062 Completed 201404/25/2015 Location : None;Sev erity: Moderate ;Progres s: Stable;A dded By: Mary Mohamud;Add to Current Problems : YES Brady Parmar MD Attn: Accounting ,[address] [facility], [place], [place], [address] [place] [address] , [facility] 2 11:23:45 Acute pharyngi tis 877381767 Completed 201404/25/2015 Location : None;Sev erity: Moderate ;Progres s: Stable;A dded By: Mary Mohamud;Add to Current Problems : YES Brady Parmar MD Attn: Accounting ,[address] [facility], [place], [place], [address] [place] [address] , [facility] 2 11:23:45 Allergic urticari a 42997400 Completed 201406/19/2015 Location : None;Sev erity: Moderate ;Progres s: Stable;A dded By: Mary Mohamud;Add to Current Problems : YES Brady Parmar MD Attn: Accounting ,[address] [facility], [place], [place], [address] [place] [address] , [facility] 2 11:23:45 Acute sinusiti s 49897232 Completed 201411/04/2014 Location : None;Sev erity: Moderate ;Progres s: Stable;A dded By: Leatha Gomez; Add to Current Problems : YES Brady Parmar MD Attn: Accounting ,[address], [place], [address] [place] [address] , [facility] 2 11:23:44 Otogenic otalgia 10708556 Completed 201307/09/2013 Location : None;Sev erity: Moderate ;Progres s: Stable;A dded By: Agnes Iverson; Add to Current Problems : NO Brady Parmar MD Attn: Accounting ,[address] [facility], [place], [place], [address] [place] [address] , [facility] 2 11:23:45 Problem Notes None recorded. Procedures Surgical History Date Name Laterality Status Provider Name and Address Organization Details Recorded Time 03/02/20 16 Unlisted px arthroscopy completed Sia Mendez [place] - [facility] 08/31/2016 13:49:58 10/21/19 11 Knee [facility] 13:49:37 04/22/19 03 [facility] 13:49:45 Imaging Results Imaging Date Name Status LastModified by Organiz ation Details LastModified Time 12/01/2021 XR, thoracic spine, 3 view completed [facility] [address] [facility] [address] [facility], [place], [address], 12/04/2021 15:31:29 10/02/2022 NM, thyroid scan completed [address], [place], [address], 03/19/2023 14:59:53 01/29/2024 sleep study, diagnostic (PROC) [place] [address] Information not available 02/24/2024 21:33:57 04/28/2024 US, abdomen completed [place] [address] [facility] [address], [place], [address], 04/28/2024 13:09:01 Procedure Notes None recorded. Medical Equipment None Reported. Allergies Allergen ID Allergen Name Allergen Category Reaction Reaction Severity Criticality Documentation Date Start Date Code Code System Note Provider Name and Address Organization Details Recorded Time 18176 morphine sulfate medicatio n itching moderate Not available 04/25/20162011 39792 RxNorm React ion: itchi ng;Se verit y: Moder ate; Comme nt: Aller gy Type: Adver se React ion; Not Available [facility] 7 03:49:32 Medications Name Sig Start Date Stop Date Status Note LastModified by Organization Details LastModified Time prednisone 10 mg tablet TAKE 1 TABLET BY MOUTH DAILY IN THE MORNING active Not Available Not Available No t Available cefuroxime axetil 250 mg tablet TAKE 1 TABLET BY MOUTH TWICE DAILY 05/23 completed Not Available Not Available Not Available Ceftin 500 mg tablet Take 1 tablet(s) by mouth bid for 10 days 04/15 completed RxNorm : 760502 ;Allow Substi tution : True Not Available Not Available Not Available triamcinol one acetonide 0.5 % topical cream Apply thin film to affected area bid <2 weeks. 09/15 completed RxNorm : 620984 ;Allow Substi tution : True Not Available Not Available Not Available atorvastat in 10 mg tablet TAKE 1 TABLET BY MOUTH EVERY NIGHT AT BEDTIME 2023 active Not Available Not Available Not Avai lable meloxicam 15 mg tablet Take 1 tablet every day by oral route with meals. 2023 active Not Available Not Available Not Avai lable famotidine 40 mg tablet Take 1 tablet twice a day by oral route as needed. 2023 active Not Available Not Available Not Avai lable prednisone 20 mg tablet 3 tabs by mouth this morning, then 2 tabs by mouth every morning x 3 days, then 1 tab every morning x 3 days, then 1/2 tab every morning x 3 days. (#14) 03/19 completed Not Available Not Available Not Available propranolo l ER 60 mg capsule,24 hr,extende d release Take 1 capsule every day by oral route. 05/30 completed Not Available Not Available Not Available Excedrin Migraine 250 mg-250 mg-65 mg tablet Take 2 tablet(s) by mouth q24h 2012 active RxNorm : 758379 ;Allow Substi tution : True Not Available Not Available Not Available Zithromax 250 mg tablet Take 2 tablet(s) by mouth on day 1 then 1 tablet every day for the next 4 days. 01/02 completed RxNorm : 533581 ;Allow Substi tution : True Not Available Not Available Not Available tramadol 50 mg tablet 05/15 completed Not Available Not Available Not Available triamcinol one acetonide 0.1 % topical cream use twice a day as needed for less than 2 wks 05/15 completed Not Available Not Available Not Available ketorolac 10 mg tablet 08/12 completed Not Available Not Available Not Available oxycodone- acetaminop hen 5 mg-325 mg tablet 05/30 completed Not Available Not Available Not Available amoxicilli n 875 mg tablet TAKE 1 TABLET BY MOUTH EVERY 12 HOURS active Not Available Not Available No t Available Afrin Menthol [place] 0.05 % nasal spray 2 to 3 spray(s) in each nostril q12h 10/04 completed RxNorm : 899150 2;Allo w Substi tution : True Not Available Not Available Not Available tamsulosin 0.4 mg capsule 05/30 completed Not Available Not Available Not Available cephalexin 500 mg capsule Take 1 capsule every 8 hours by oral route for 10 days. 08/31 completed Not Available Not Available Not Available methimazol e 5 mg tablet TAKE 2 TABLETS BY MOUTH DAILY 08/07 completed Not Available Not Available Not Available mupirocin 2 % topical ointment APPLY A SMALL AMOUNT TO THE Nose BY TOPICAL ROUTE 3 TIMES PER DAY 07/13 completed Not Available Not Available Not Available azelastine 137 mcg (0.1 %) nasal spray USE 1 SPRAY IN EACH NOSTRIL EVERY 12 HOURS 11/09 completed Not Available Not Available Not Available methylpred nisolone 4 mg tablets in a dose pack TAKE DIRECTED WITH FOOD 11/09 completed Not Available Not Available Not Available methimazol e 10 mg tablet TAKE 2 TABLETS BY MOUTH DAILY active Not Available Not Available No t Available ondansetro n 4 mg disintegra ting tablet 05/30 completed Not Available Not Available Not Available fluticason e propionate 50 mcg/actuat ion nasal spray,susp ension 2 spray(s) in each nostril daily 05/15 completed Not Available Not Available Not Available naproxen 500 mg tablet TAKE 1 TABLET TWICE A DAY WITH FOOD NEEDED 05/15 completed Not Available Not Available Not Available metaxalone 800 mg tablet Take 1 tablet 3 times a day by oral route. 08/12 completed Not Available Not Available Not Available cyclobenza linda 5 mg tablet TAKE 1 TABLET BY MOUTH THREE TIMES DAILY NEEDED 03/19 completed Not Available Not Available Not Available methscopol amine 5 mg tablet Take one-half tablet (2.5mg) daily. 06/08 completed RxNorm : 046609 ;Allow Substi tution : True Not Available Not Available Not Available Levaquin Leva-Cm 750 mg tablet Take 1 tablet(s) by mouth daily for 5 days 07/14 completed Allow Substi tution : True Not Available Not Available Not Available eszopiclon e 3 mg tablet 08/07 completed Not Available Not Available Not Available Vitals Date Recorded Body height Body mass index (BMI) Body weight Body temperature Oxygen saturation Oxygen saturation in Arterial blood by Pulse oximetry Heart rate Systolic blood pressure Diastolic blood pressure Provider Name and Address Organization Details Last Updated DateTime 2 175.26 cm 31.5 kg/m2 27014.5 7 g 97.3 [degF] 95 % 95 % 88 /min 120 mm[Hg] 84 mm[Hg] Amy Perez MA [facility] 2 11:31:21 Date Recorded Body height Body mass index (BMI) Body weight Body temperature Oxygen saturation Oxygen saturation in Arterial blood by Pulse oximetry Heart rate Systolic blood pressure Diastolic blood pressure Provider Name and Address Organization Details Last Updated DateTime 2 175.26 cm 32.4 kg/m2 11408.5 3 g 97.7 [degF] 97 % 97 % 79 /min 120 mm[Hg] 80 mm[Hg] Sonido Rodríguez MA [place] - [facility] 2 10:19:36 Date Recorded Body height Body mass index (BMI) Body weight Body temperature Oxygen saturation Oxygen saturation in Arterial blood by Pulse oximetry Heart rate Systolic blood pressure Diastolic blood pressure Provider Name and Address Organization Details Last Updated DateTime 3 175.26 cm 32.2 kg/m2 11115.1 4 g 97.1 [degF] 96 % 96 % 85 /min 130 mm[Hg] 78 mm[Hg] Ambreen Bustos [place] - [facility] 3 11:49:38 Date Recorded Body height Body mass index (BMI) Body weight Oxygen saturation Oxygen saturation in Arterial blood by Pulse oximetry Heart rate Body temperature Systolic blood pressure Diastolic blood pressure Provider Name and Address Organization Details Last Updated DateTime 3 175.26 cm 32 kg/m2 88046.5 4 g 98 % 98 % 90 /min 97.5 [degF] 128 mm[Hg] 83 mm[Hg] Josephine Mark MA [place] - [facility] 3 14:40:49 Date Recorded Body height Body mass index (BMI) Body weight Body temperature Oxygen saturation Oxygen saturation in Arterial blood by Pulse oximetry Heart rate Systolic blood pressure Diastolic blood pressure Provider Name and Address Organization Details Last Updated DateTime 175.26 cm 32 kg/m2 19807.5 4 g 97.3 [degF] 96 % 96 % 93 /min 114 mm[Hg] 81 mm[Hg] Ambreen Bustos MA [facility] 10:31:45 Date Recorded Systolic blood pressure Diastolic blood pressure Provider Name and Address Organization Details Last Updated DateTime 07/25/2023 122 mm[Hg] 84 mm[Hg] GADIEL Khoury Attn: Accounting[address] [facility], [place], [address], [facility] 07/25/2023 10:44:32 Social History Question Answer Notes LastModified by Organizat ion Details LastModified Time Tobacco Smoking Status Never Smoker Sia Vanessa steinberg, [facility] 05/30/2018 14:39:17 Do You Have An Advance Directive? No Information not available 05/23/2021 What Is Your Level Of Alcohol Consumption? None Information not available 07/13/2020 Are You Blind Or Do You Have Difficulty Seeing? No Information not available 05/23/2021 What Is Your Level Of Caffeine Consumption? Occasional Information not available 05/23/2021 Are You Currently Employed? Yes Information not available 05/23/2021 Are You Deaf Or Do You Have Serious Difficulty Hearing? No Information not available 05/23/2021 What Type Of Diet Are You Following? REGULAR Information not available 05/23/2021 What Was The Date Of Your Most Recent Tobacco Screening? 07/25/2023 Information not available 07/25/2023 What Is Your Relationship Status? Information not available 05/23/2021 Do You Use Your Seat Belt Or Car Seat Routinely? Yes Information not available 05/23/2021 Do You Have Smoke And Carbon Monoxide Detectors In Your Home? Yes Information not available 05/23/2021 Are You Passively Exposed To Smoke? No Information no t available 05/23/2021 Do You Feel Stressed (tense, Restless, Nervous, Or Anxious, Or Unable To Sleep At Night)? [id number] Information not available 05/23/2021 Do You Use Any Illicit Or Recreational Drugs? No Information not available 07/13/2020 Has Tobacco Cessation Counseling Been Provided? No Information not available 07/13/2020 Do You Or Have You Ever Used Any Other Forms Of Tobacco Or Nicotine? No Information not available 07/13/2020 Sex: Male Functional Status Question Answer Note LastModified by Organizat ion Details LastModified Time Are you able to care for yourself? Yes Information not available 05/23/2021 What is your exercise level? Occasional Information not available 05/23/2021 Mental Status None recorded. Family History Relationship Description Onset Age of this Age Resolved Age Notes LastModified by Organization Details LastModified Time Father Malignant tumor of colon [email or web address] Not available 16:37:17 Father Malignant tumor of prostate [email or web address] Not available 16:37:23 Paternal Grandmother Coronary arterioscler osis [email or web address] Not available 03/2017 13:50:10 Paternal Grandmother Type 2 diabetes mellitus [email or web address] Not available 03/2017 13:50:25 Maternal Grandfather Coronary arterioscler osis [email or web address] Not available 03/2017 13:50:10 Paternal Uncle Malignant tumor of prostate [email or web address] Not available 03/2017 13:50:15 Medical History Condition Response Coronary Artery Disease N Other N Atrial Fibrillation N High Blood Pressure N Kidney or Bladder Problems N Thyroid Problems N GI Problems N Depression N COPD N Blood Clots N Skin Problems N Anemia N Heart Attack ([place]) N Anxiety Disorder N Diabetes N Muscle, Joint, or Bone Problems Y Seizures/Epilepsy N Acid Reflux (GERD) N Cancer N Stroke N Asthma N Allergies N High Cholesterol N Hepatitis N Liver Disease N Headaches N Heart Failure N Osteoporosis N Immunizations Vaccine Type Date Status Note Provider Nam e and Address Organization Details Recorded Time COVID-19, mRNA, LNP-S, PF, 30 mcg/0.3 mL dose 1 completed GADIEL Khoury Attn: Accounting,204 1 [facility], [place], [place], [address] [place] [address], [place] [facility] 03/19/2023 14:57:41 Influenza, split virus, quadrivalent, preservative 1 completed KAYLIN Ladd[place] [facility] 05/23/2021 11:33:52 COVID-19, mRNA, LNP-S, PF, 30 mcg/0.3 mL dose 1 completed GADIEL Khoury Attn: Accounting,[address] 1 [facility], [place], [place], [address] [place] [address], [place] [facility] 03/19/2023 14:57:41 COVID-19, mRNA, LNP-S, PF, 30 mcg/0.3 mL dose 1 completed GADIEL Khoury Attn: Accounting,204 1 [facility], [place], [place], [address] [place] [address], [place] [facility] 03/19/2023 14:57:41 COVID-19, mRNA, LNP-S, PF, 30 mcg/0.3 mL dose 0 completed GADIEL Khoury Attn: Accounting,204 1 [facility], [place], [place], [address] [place] [address], [place] [facility] 03/19/2023 14:57:41 COVID-19, mRNA, LNP-S, bivalent, PF, 30 mcg/0.3 mL dose 2 completed GADIEL Khoury Attn: Accounting,204 1 [facility], [place], [address] [place] [address], [place] [facility] 03/19/2023 14:57:41 COVID-19, mRNA, LNP-S, PF, sean-sucrose, 30 mcg/0.3 mL 3 completed GADIEL Khoury Attn: Accounting,204 1 [facility], [place], [address] [place] [address], [place] [facility] 03/19/2023 14:57:41 Influenza, split virus, trivalent, preservative 6 completed GADIEL Khoury Attn: Accounting,[address] [facility], [place], [address], [place] [facility] 03/19/2023 14:57:41 Influenza, split virus, trivalent, PF 7 completed GADIEL Khoury Attn: Accounting,[address] 1 [facility], [place], [address], [place] [facility] 03/19/2023 14:57:41 Influenza, split virus, quadrivalent, PF 8 completed GADIEL Khoury Attn: Accounting,[address] 1 [facility], [place], [address], [place] [facility] 03/19/2023 14:57:41 influenza, seasonal, intradermal, preservative free 2 completed Not Available [facility] 05/23/2019 02:11:40 Influenza, split virus, trivalent, preservative 4 completed Not Available [facility] 04/25/2016 05:33:15 Influenza, split virus, quadrivalent, preservative 5 completed Not Available [facility] 05/23/2019 02:11:40 Tdap 2 completed Not Available [facility] 04/25/2016 05:33:15 Past Encounters Encounter ID Performer Location Encounter Start Date Encounter Closed Date Diagnosis/Indication Diagnosis SNOMED-CT Code Diagnosis ICD10 Code Diagnosis Note [id number] [facility] [address] [place] [address] 05/15/2016 15:42:18 05/16/2016 15:53:40 Screening for malignant neoplasm of prostate 245667194 Z12.5 Mixed hyperlipidemia 267 936439 E78.2 Acute maxi llary sinusitis 66652034 J01.00 [id number] [facility] [address] [place] [address] 08/31/2016 14:57:35 09/02/2016 09:59:48 Strain of neck muscle 134834729 S16.1XXA if patient calls back --refer to pain management and get XR - C-spine Mixed hyperlipidemia 267 054283 E78.2 [id number] GADIEL Khoury [facility] [address] [place] [address] 08/12/2017 11:30:10 08/12/2017 21:06:03 Mixed hyperlipidemia 528017653 E78.2 will fast and have labs at [facility] [place]. Family his tory of malignant neoplasm of prostate 882614854 Z80.42 Adult heal th examination 049921385 Z00.00 heart healthy diet and routine exercise discussed and f/u yearly, Filled out forms for [employer] Schedule Coordinator of [employer] Family his tory of diabetes mellitus 407861204 Z83.3 Costal chondritis 778128 04 M94.0 ICE and rest prn [id number] GADIEL Khoury [facility] [address] [place] [address] 10/29/2017 10:29:59 10/30/2017 11:10:58 Mixed hyperlipidemia 760993929 E78.2 Thyrotoxicosis 29427922 E05.90 He will call himself to the endocrinol ogist we referred to in [place], Dr. Ma, and try to get in this week due to his insurance lapsing in a week or two. He will regain insurance in about 1-2 months through 's new job at [employer] Insomnia 097733771 G47.0 0 Tremor 17779398 R25.1 [id number] GADIEL Khoury [facility] [address] [facility] [place] [address] [place] [address] 05/30/2018 14:36:00 06/02/2018 09:50:32 Rhinitis medicamentosa 49978269 J31.0 Deviated nasal septum 12 5637017 J34.2 Hyperthyroidism 29572266 E05.90 Family his tory of malignant neoplasm of prostate 577247867 Z80.42 Adult heal th examination 448932999 Z00.00 heart healthy diet and routine exercise discussed and f/u yearly, Filled out forms for [employer] Schedule Coordinator of [employer] Contact de rmatitis of hand 993125845 L25.9 Hand pain 82319448 M79.6 42 Hyperlipidemia 21478686 E78.5 continue statin and healthy diet. [id number] GADIEL Khoury [facility] [address] [place] [address] 05/15/2019 09:38:26 05/18/2019 09:50:46 Costal chondritis 56953727 M94.0 discuss PT or pain management , he wants to hold off, doesn't limit him. Hyperthyroidism 75414735 E05.90 Mixed hyperlipidemia 267 050859 E78.2 has labs drawn at [facility] since he is an employee there Family his tory of malignant neoplasm of prostate 721302901 Z80.42 Adult heal th examination 735012784 Z00.00 heart healthy diet and routine exercise discussed and f/u yearly, Nasal vestibulitis 03101 000 J34.89 [id number] GADIEL Khoury [facility] [address] [place] [address] 08/11/2019 13:02:39 08/11/2019 14:55:04 Acute pharyngitis 691424362 J02.9 He will suck on some lozenges, stay hydrated and call us with any added symptoms, like cough, return of fever, sinus symptoms, etc. Otherwise will await culture results. [id number] GADIEL Khoury [facility] [address] [place] [address] 07/13/2020 10:53:48 07/13/2020 17:27:42 Chronic rhinitis 86928065 J31.0 Mixed hyperlipidemia 267 082266 E78.2 Hyperthyroidism 11043308 E05.90 per [facility] Family his tory of malignant neoplasm of prostate 649151448 Z80.42 Snoring symptoms 0195476 00 R06.83 wants to see ENT per request Gastroesop hageal reflux disease 088901280 K21.9 can still take TUMS prn, avoid late meals, acidic and spicy foods, carbonatio n. 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 Indigestion 410141838 K3 0 nosymptoms while on famotidine , will refill. Hyperthyroidism 76441363 E05.90 per [facility], but would potentiall y like to get establishe d with new group. he will call for referral in the future, will copy labs to [facility] Family his tory of malignant neoplasm of prostate 595182482 Z80.42 Lateral ep icondylitis of right humerus 5449341370 47125 M77.11 Neck pain 14121540 M54.2 If no better with MDP adn then continue NSAIDS where he would like further interventi on, he agrees to xray and PT, orders printed. [id number] Brady Parmar MD [facility] [address] [place] [address] 11/09/2021 10:01:33 11/09/2021 16:59:40 Acute low back pain 584728348 M54.50 - persistent symptoms > 6 weeks-- will obtain radiograph s to rule out acute bony abnormalit ies-- handouts provided for low back pain- trial of oral corticoste roids, skeletal muscle relaxant- consider physical therapy, advanced imaging depending on response Thoracic back pain 28647 8004 M54.6 - symptoms ongoing > 6 weeks- thoracic radiograph s- medication s as above, handouts Body mass index 30+ - obesity 384590780 Z68.32 Healthy adult recommenda tions: Focus on a healthy diet, with exercise as tolerated, targeting 30-60 minutes of exercise daily, at least 5 days per week. Long-term drug therapy 454181191 Z79.806 [id number] GADIEL Khoury [facility] [address] [place] [address] 08/07/2022 11:13:34 08/10/2022 15:15:55 Mixed hyperlipidemia 642443475 E78.2 will have fasting labs at [facility] at his earliest convenienc e. Printed order for lab. Gastroesop hageal reflux disease 071929408 K21.9 takes one famotidine daily and an extra if eating something acidic Adult heal th examination 801244147 Z00.00 heart healthy diet and routine exercise discussed. Defers colon cancer screening until 48 Hyperthyroidism 59230484 E05.90 per [facility], due for repeat labs. Administra tion of diphtheria, pertussis, and tetanus vaccine 127394862 Z23 out of Boostrix today, will give at earliest [facility] when back in stock. [id number] GADIEL Khoury [facility] [address] [facility] [place] [address] [place] [address] 03/19/2023 14:07:02 03/20/2023 10:36:47 Mixed hyperlipidemia 337470079 E78.2 UTD On lab this past August Gastroesop hageal reflux disease 711873999 K21.9 takes one famotidine daily and an extra if eating something acidic. Symptoms improved except for this week with this GI bug. Thoracic back pain 74241 8004 M54.6 reviewed his xrays with him again, and advised trial meloxicam instead of prn otc ibuprofen, and continued chiropract ic care. To call if no better to consider further imaging to consider MRI or CT. Has radiated pain to left chest from the left mid back. Viral gastroenteritis 11 2270991 A08.4 switch to immodium prn, BRAT diet and clear liquids... MUCH improved today, diarrhea slowing down. Family his tory of diabetes mellitus 289193035 Z83.3 [id number] GADIEL Khoury [facility] [address] [facility] [place] [address] [place] [address] 07/25/2023 10:21:30 07/25/2023 14:37:10 Screening for malignant neoplasm of prostate 705385286 Z12.5 Hyperthyroidism 69360692 E05.90 per [facility], TSH normal in January and April, will copy results to endocrinol og for upcoming appt. Mixed hyperlipidemia 267 927153 E78.2 UTD On lab this past August 2022, will have done fasting at [facility] at [facility], no change in statin. CMP ok in 02/11 Prediabetes 546147412 R7 3.03 5.7 last A1C in January, requesting repeat. Gastroesop hageal reflux disease 364224894 K21.9 takes one famotidine daily and an extra if eating something acidic. Symptoms improved except for this week with this GI bug. Thoracic back pain 96310 3219 M54.6 reviewed his xrays with him again, meloxicam does help and less tough on his stomach that ibuprofen. Health Concerns Section Related Observation LastModified by Organization Fuad ls LastModified Time None Recorded Concern Status LastModified by Organization Details LastModified Time None Recorded Advance Directives Directive N: Payers Encounter Date Sequence Insurance Name Policy Number Policy Ward Covered Member ID Ward Member ID Guarantor Name 05/23/2021 1 [facility] [id number] Simon Tilley [id number] Simon Tilley 11/09/2021 1 R [id number] Simon Tilley [id number] Simon Tilley 08/07/2022 1 [employer] [id number] Simon Tilley [id number] Simon Tilley 03/19/2023 1 R [id number] Simon Tilley [id number] Simon Tilley 07/25/2023 1 R [id number] Simon Tilley [id number] Simon Tilley Notes Date Note Type Note Provider Name and Address Organization Details Recorded Time 05/23/2021 text/html Elbow/ForearmRep orted bypatient.Hand Dominance:right Location:bilateral Quality:throbbing; sharp; constant; worsening Severity:moderate Duration:3 months Context:cannot identify Alleviating Factors:nothing helps Aggravating Factors:lifting; carrying; pushing/pulling; throwing; ROM; weightbearing Associated Symptoms:no weakness; no numbness; no tingling; no swelling; no redness; no ecchymosis; no catching/locking; no popping/clicking; no buckling; no grinding; no instability; no drainage; no fever; no chills; no weight loss; no change in bowel/bladder habits;warmth Previous Surgery:none Prior Imaging:none Previous Injections:none Previous PT:none Work Related:no Working:regular dutyNeck PainReported bypatient.Trauma:no Neurological Complaints:pain in the arms Pain:aching;worse with movement;worse with activity; pain started in middle of back and moved up to neck. He is still having the pain in the back also Pain Duration:3 monthsNotes:feels alot of cracking in the right side of neck, with stiffness, on occasion radiated pain into forearm, not sure if that's from the elbow. Taking aleve and ibuprofen for pain, helps a little. hasn't seen the outside salesperson for his hyperthyroid in a couple ofyears likely, is splitting the pills per her advise so have lasted him this long. No recent labs. 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 GADIEL Khoury Attn: Accounting,[address] [facility], [place], [address], [facility] 05/23/2021 13:55:12 11/09/2021 text/html Back PainReporte d bypatient.Location:[place] n radiating to the buttocks(hips groin whole back) Quality:sharp(bottom); dull(aches top) Severity:same;severe (8-10);interference with sleep Duration:acute Onset/Timinweeks ago Context:unknown-- tried otc pain meds to help Aggravating Factors:movement/posit ioning;twisting;flexin g back;extending back Associated Symptoms:no fever; no weak limbs; no incontinence; no shortness of breath;numbness of the legs/feet;tinglingNote s:-Potato Seed Cutter/Nursing note reviewed above.-Simon reports relatively acute onset low back pain, ongoing approximately 8 weeks- no known injury, but does a lot of lifting- radiates to right groin and buttocks- worst on awakening, with gradual improvement during the day- impacts sleep- has used lidocaine patch briefly- has used Excedrin or ibuprofen, alternating q2 hours- history of lumbar herniated disc remotely, managed conservatively history of upper back problems- neck, right epicondyle- Seen by GADIEL 06/13- physical therapy referral, not especially helpful- has noted some paresthesias to upper extremities, left greater than right- feels symptoms under shoulder blades No weakness or paresthesias.No bowel or bladder issues Brady Parmar MD Attn: Accounting,[address] [place], [address], [facility] 11/09/2021 13:26:49 03/19/2023 text/html DiarrheaReported bypatient.Quality:impr oving;watery Severity:mild Duration:started on 03/15/23 Onset/Timin-10 times a day;nocturnal diarrhea Context:no one else with similar symptoms; no recent camping; no recent picnic; no recent travel Alleviating Factors:peptobismal Associated Symptoms:no excess gas; no rash; no joint pain; no weight loss; no blood in stool; no mucus in stool; no black or tarry stools; no nutrient deficiency; no fecal incontinence;abdominal pain;fever(maybe had one pt said that he was hot and cold);nausea;vomiting( and dry helves);heartburn; fatigue,cough, loss voice,Notes:Feels that he has turned a corner, and better today. Last watery stool was this AM, much improved, drinking gatorade since this AM.Also wondering if there are any other options for his RIB/thoracic back pain, he is now seeing chiropractor. Xrays normal. GADIEL Khoury Attn: Accounting,[address] [place], [address], [place] [facility] 03/20/2023 09:21:49 07/25/2023 text/html DiarrheaReported bypatient.Quality:loos e Severity:mild Duration:present one day Onset/Timing:gradual onset; 4-10 times a day;worse in the morning;worse in the evening;worse in the afternoon Context:no one else with similar symptoms; no recent camping; no recent picnic; no possible food sources; no recent travel;possible food source; Pt states that he thinks that he had food poisoning. Associated Symptoms:no abdominal pain; no excess gas; no fever; no rash; no weight loss; no heartburn; no blood in stool; no mucus in stool; no black or tarry stools; no nutrient deficiency; no fecal incontinence;joint pain;nausea;vomiting;w eaknessNotes:left work Saturday feeling awful, that night was achy and chilled, vomited through the evening, diarrhea started first. No one else sick. Diarrhea stopped with Immodium the next day. Appetite still not normal, feels full. Urinating normally now. Keeping liquid down now. No recent weight loss, no blood in the stool.Seeing Dr. Koch for thyroid. Considering thyroidectomy due to multiple nodules.HypertensionRe ported bypatient.Quality:weak ness Duration:has noted for months Onset/Timing:gradual onset Context:Would like to further discuss with provider Associated Symptoms:no shortness of breath; no fatigue; no palpitations; no decline in exercise capacity;snoringNotes: 150/90 at ENT twice when having ear issues and pain and home BP cuff always reads around the same. Went over medications with pt pt states that he is not certain on refills today. GADIEL Khoury Attn: Accounting,[address] [facility], [place], [address], [facility] 07/25/2023 11:03:34
--- OUTSIDE RECORDS SUMMARY | 2024-05-04 22:42 | XMS_ITS | Encounter Summary ---
Author Organization [facility] Address [facility]. [place], [place] [address] [place] [address] Care Team Providers Care Sonoscope Operator Name Role Phone Pollo Warren MD Primary Care Provider +- [phone] Pollo Warren MD Primary Care Provider + [phone] Pollo Warren MD Primary Care Provider + [phone] Encounter Details Date Type Department Care Team (Latest Contact Info) Description 01/27/2016 Abstract [facility] Social History Tobacco Use Types [...] on filedocumented in this encounter Care Teams Sonoscope Operator Relationship Specialty Start Date End Date Pollo Warren MD [address] [address] PCP - General 03/02/16 Pollo Warren MD [address] [id number] PCP - General 02/07/16 03/01/16 Pollo Warren MD [address] [id number] PCP - General 06/28/12 02/06/16 documented as of this encounter
--- OUTSIDE RECORDS SUMMARY | 2024-05-04 22:42 | XMS_ITS | Encounter Summary ---
Author Organization [facility] Address [facility]. [address] [place] [address] Care Team Providers Care Online Affiliate Marketing Manager Name Role Phone Pollo Warren MD Primary Care Provider +- [phone] Pollo Warren MD Primary Care Provider + [phone] Pollo Warren MD Primary Care Provider + [phone] Encounter Details Date Type Department Care Team (Latest Contact Info) Description 07/25/2015 Abstract [facility] Social History [...] on filedocumented in this encounter Care Teams Online Affiliate Marketing Manager Relationship Specialty Start Date End Date Pollo Warren MD [address] [address] PCP - General 03/02/16 Pollo Warren MD [address] [id number] PCP - General 02/07/16 03/01/16 Pollo Warren MD [address] [id number] PCP - General 06/28/12 02/06/16 documented as of this encounter
--- OUTSIDE RECORDS SUMMARY | 2024-05-04 22:42 | XMS_ITS | Clinical Summary ---
Author Organization [facility] Address [address] [place] [address]. [place], [place] [address] [place] [address] Care Team Providers Care Training Engineer Name Role Phone Pollo Warren MD Primary Care Provider +1- [phone] Allergies Active Allergy Reactions Criticality Noted Date Comments Morphine Itching 05/17/2017 Medications No known medications Active Problems No known active problems Social History Tobacco Use Types Packs/Day Years Used Date Smoking Tobacco: Never Smokeless Tobacco: Never Alcohol Use Standard Drinks/Week Comments No 0 (1 standard drink = 0.6 oz pur e alcohol) Sex and Gender Information Value Date Recorded Sex Assigned at Not on file Legal Sex Male 8:31 PM CDT Gender Identity Not on file Sexual Orientation Not on file Last Filed Vital Signs Vital Sign Reading Time Taken Comments Blood Pressure 141/92 05/17/2017 12:24 PM RETORT ENGINEER Pulse 73 05/17/2017 12:24 PM RETORT ENGINEER Temperature 36.6 ??C (97.9 ??F) 05/17/2017 12:[address] Respiratory Rate 16 05/17/2017 12:24 PM RETORT ENGINEER Oxygen Saturation 98% 05/17/2017 12:24 PM RETORT ENGINEER Inhaled Oxygen Concentration - - Weight 86.2 kg (190 lb) 05/17/2017 12:24 PM RETORT ENGINEER Height 175.3 cm (5' 9 ) 05/17/2017 12:24 PM RETORT ENGINEER Body Mass Index 28.06 05/17/2017 12:24 PM RETORT ENGINEER Plan of Treatment Health Maintenance Due Date Last Done Comments Colorectal Cancer Screening Colonoscopy (10 Years) 1973 Annual Physical 1976 Hepatitis C 08/07/1991 DTaP, Tdap and Td Vaccines ( 1 - Tdap) 1992 Hepatitis B Vaccines (1 of 3 - 19+ 3-dose series) 1992 Zoster Vaccines (1 of 2) 08/07/2023 COVID-19 Vaccine (2023-2 5 season) 2023 Influenza Adult (#1) 2024 Meningococcal Vaccine Aged Out No bonilla vern eligible based on patient's age to complete this topic Pneumococcal Vaccine: Pediat rics (0 to 5 Years) and At-Risk Patients (6 to 64 Years) Aged Out No longer eligible b ased on patient's age to complete this topic RSV Immunizations Under 20 Months Aged Out No longer eligible based on patient's age to complete this topic Care Teams Training Engineer Relationship Specialty Start Date End Date Pollo Warren MD [address] [address] PCP - General 03/02/16
--- OUTSIDE RECORDS SUMMARY | 2024-05-04 22:42 | XMS_ITS | Encounter Summary ---
Author Organization [facility] Address [address] [place] [address]. [place], [place] [address] [place] [address] Care Team Providers Care Nut Roaster Helper Name Role Phone Pollo Warren MD Primary Care Provider +1- [phone] Encounter Details Date Type Department Care Team (Late st Contact Info) Description 03/02/2016 Abstract [facility] [place] [address] , Sharon Vazquez MD Social History Tobacco Use Types Packs/Day Years Used Date Smoking Tobacco: Never Assessed Sex and Gender Information Value Date Recorded Sex Assigned at Not on file Legal Sex Male 8:31 PM CDT Gender Identity Not on file Sexual Orientation Not on file documented as of this encounter Plan of Treatment Not on file documented as of this encounter Visit Diagnoses Diagnosis Other meniscus derangements, other medial meniscus, left knee documented in this encounter Care Teams Nut Roaster Helper Relationship Specialty Start Date End Date Pollo Warren MD [address] [place] [address] PCP - General 03/02/16 documented as of this encounter
--- OUTSIDE RECORDS SUMMARY | 2024-05-04 22:42 | XMS_ITS | Encounter Summary ---
Author Organization [facility] Address [facility]ly [facility]. [place], [place] [address] [place] [address] Care Team Providers Care Laboratory Animal Facility Supervisor Name Role Phone Pollo Warren MD Primary Care Provider +1- [phone] Encounter Details Date Type Department Care Team (Late st Contact Info) Description 03/02/2016 Abstract [facility] Medical [facility] Multispecialty Care - [address], [address] [place] [id number] Froy Joseph MD [address] [place] [address] [address] [place] [address] Social History Tobacco Use Types Packs/Day Years Used Date Smoking Tobacco: Never Assessed Sex and Gender Information Value Date Recorded Sex Assigned at Not on file Legal Sex Male 8:31 PM CDT Gender Identity Not on file Sexual Orientation Not on file documented as of this encounter Procedure Notes * Froy Joseph MD - 03/02/2016 3:33 PM CST [place] [address] Patient: RAMA TILLEY Med Rec#: [id number] Birthdate: 1975 Admit/Svce Date: 03/02/2016 Disch Date: Attending Md: FROY JOSEPH MD CHART DOCUMENT PREOPERATIVE DIAGNOSIS: 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 SURGERY PERFORMED: Left knee arthroscopy with arthroscopically assisted revision ACL reconstruction with autogenous hamstring graft and partial medial meniscectomy. DATE: 03/02/2016 SURGEON: FROY JOSEPH MD DETAIL MAKER AND FITTER: CLINICAL HISTORY: Patient is a very pleasant 40-year-old male. He has had a left knee ACL reconstruction in the past. He had recalcitrant giving way and popping and clicking which has been unresponsive to conservative measures. A preoperative MRI showed a medial meniscus tear and failed ACL graft. For this reason, he was taken to the operating room for today's procedure. OPERATIVE DESCRIPTION: The patient was greeted in the preoperative holding suite. It was confirmed that the left knee was the correct site for surgery. It has initialed by attending surgeon. Risks and benefits of surgery were discussed at length. Risks include, but not limited to, infection, bleeding, pain, scar, damage to vessels, nerves, bone, muscle, cartilage and skin, stiffness, loss of motion, recurrent laxity, hardware failure, arthritis, blood clots, need for reoperation, and . He understood and wished to proceed. I also discussed with him the possibility of allograft use and the fact that revision surgeries were not quite as successful as initial surgeries. He understood and wished to proceed. At this point, under sterile prep the anesthesia service placed a femoral nerve block without difficulty. This resulted in excellent neurosensory anesthesia left lower extremity. He was then taken to the operating room and general endotracheal intubation anesthetic was established. It was confirmed he received his preoperative antibiotics. Inspection of the left knee under anesthesia revealed the following. He extended and neutrally flexed to 130. The knee was stable to valgus and varus at 0 and 30 degrees of flexion. Posterior drawer was negative. There was no posterior sag. He had a positive anterior drawer, positive Bridget's, and positive pivot. The patella was stable at 0 and 30 degrees of flexion. There was no posterolateral rotatory instability. He had a negative reverse pivot shift. Negative dial testing at 0, 30, 60 and 90 degrees. At this point, a well-padded tourniquet was placed about the left thigh and it was placed in arthroscopic leg mtz. The right leg was placed in the Anatoliy stirrup with care taken to pad the peroneal nerve. The left lower extremity was then prepped and draped in the usual sterile fashion. Final timeout was initialed by the attending surgeon confirming the correct patient, anatomic site, procedure to be performed, allergies, antibiotic administration, and initiation of DVT prophylaxis. At this point, utilizing inferolateral and inferior medial portals with sharp dissection of the skin and blunt dissection of the joint the arthroscope was introduced into knee without difficulty. Inflow and outflow was established. Inspection of the knee revealed the following. The notch revealed a complete absence of the ACL. The PCL was intact. The medial femoral condyle had some cracking diffusely, but no large flaps or fissures. No exposed bone. The medial plateau had some diffuse grade 2 and 3 changes in the central portion. There was an obvious displaced bucket handle meniscus tear that had split with a large anterior flap. This was debrided away with a shaver. We then found the flap posteriorly and completed our meniscectomy with a combination of biting instruments and motorized darrion, and electrothermal device. At the conclusion of this the meniscus had a smooth stable contour with no beaks, flaps, or fissures for progression. The medial gutter was free of debris. The suprapatellar pouch was free of debris. The patella had a little bit of softening, as did the trochlea, but overall was in good shape. The lateral femoral condyle was intact from 0-100 degrees of flexion. There was diffuse softening of the plateau. Lateral meniscus was intact. The lateral gutter was free of debris. We then went back to the notch. There was very little residual ACL left. There was none on lateral wall. There was a little bit of stump between the tibial spines. We debrided this away with electrothermal device and shaver to get complete exposure of the origin on the lateral wall as well as insertion on the tibia. We could see the femoral tunnel that had been previously placed and we determined we could get around it with the flip cutter and placed the graft in the anatomic position. We also determined this to be the case with the tibial spine. At this point, the knee was irrigated and drained. The arthroscopic instruments were removed. The knee was re-prepped with ChloraPrep. An incision was made over the anteromedial aspect of the tibia utilizing the previous incision. Bleeding was controlled with the Bovie. The sartorial fascia was divided longitudinally and then taken sharply off of the tibia. We were able to easily identify the underlying gracilis and semitendinosus tendons which were of excellent quality. They were tagged and removed with the tendon stripper. The wound was packed with moist gauze. The tendons were tagged and trimmed and were of excellent quality. They were then stored under tension under a moist gauze. It was determined we would use an 8.5 femur and 10 mm tibia. At this point, we re-approached the knee. The arthroscope was reintroduced and the Arthrex guide for the flip cutter was used to plan an anterolateral incision which was made and carefully and bluntly dissected down to the anterior lateral cortex of the femur. We then used the guide to drill the flip cutter into the anatomic origin of the ACL and lateral wall. The flip cutter was then used to retrograde drill our tunnel. We had an excellent tunnel with no blowout and a complete new tunnel throughout with no blowout on the lateral femur. All drill remnants were removed with suction shaver. We placed a passing stitch from outside-in through the femoral tunnel. At this point, the tibial guide was used and a guide pin was placed through the anteromedial cortex of the tibia into the footprint area on the tibial plateau between the spines. This was then over-drilled with a 10 mm cannulated drill bit. This resulted in good placement of the tunnel with good quality bone throughout the tunnel as viewed arthroscopically. The entrance of the tunnel was smoothed to a smooth contour and all drill remnants were removed with the suction shaver. At this point, the passing stitch was taken through the tibia and used to deliver the Tightrope through the tibia and up into the femur. We were able to visualize deployment of the Tightrope button to the femoral wall and we then confirmed with fluoroscopy flush placement of the button against the femur with excellent placement. We then vigorously cycled the graft. There was no diminution in fixation performance of the femur. At this point, under direct visualization we delivered the femoral portion of graft into the femoral tunnel utilizing the Tightrope in standard fashion. We confirmed at least 20 mm of seating in the socket as confirmed by marking its place on the graft before placement. We then maximally manually tensioned the strands through the tibia, placed the knee in 20 degrees of flexion and performed a posterior automotive hardware engineer external rotation force and secured this with a 11 x 35 mm delta screw. This resulted in excellent fixation of the graft and we then did a final tensioning of the Tightrope with the knee in 25 degrees of flexion. Repeat arthroscopy showed excellent tension in all 4 strands of our graft, no intrusion of hardware into the joint, and we were able to fully extend the knee with no impingement of the graft in the notch. When we vigorously cycled the knee. There is no diminution in graft fixation performance. At the conclusion of our fixation the Bridget's was completely corrected. The knee could not be pivoted and the normal screw home mechanism had been recreated. At this point, we then took the suture strands from the hamstring graft outside the tibia and trimmed them and then fixed them in standard fashion with a 4.75 mm SwiveLock, completing our repair. All excess stitch was removed and all passing sutures were removed and we trimmed the Tightrope sutures under the skin. The wounds were then copiously irrigated. Our graft incision was closed in layers with 0 Vicryl stitch for the sartorial fascia, a running 2-0 Vicryl for the subcu, and then a running 2-0 nylon subcutaneous stitch. The anterolateral portal was closed with 2-0 Vicryl in the subcu, and 3-0 nylon in the skin. Our arthroscopic portals were closed with interrupted nylon stitch. Sterile bulky dressing, Cryo/Cuff, and brace was applied. The patient was then extubated, taken awake in good condition. ESTIMATED BLOOD LOSS FOR PROCEDURE: 35 mL. FLUIDS: Per anesthesia. COMPLICATIONS: None. SPECIMEN: None. DRAINS: None. FINDINGS: As noted above. ANESTHESIA: General with regional. DISPOSITION: To recovery room. Please note that after closure we did instill the skin with 40 mL of 0.25% Marcaine plain around our incisions. Electronically Signed By: FROY JOSEPH M.D. 03/07/2016 06:20 A FROY JOSEPH M.D. P #[id number] P/ma cc: Sondra HUGHES M.D. documented in this encounter Plan of Treatment Not on file documented as of this encounter Visit Diagnoses Not on filedocumented in this encounter Care Teams Laboratory Animal Facility Supervisor Relationship Specialty Start Date End Date Pollo Warren MD [address] [address] PCP - General 03/02/16 documented as of this encounter
--- OUTSIDE RECORDS SUMMARY | 2024-05-04 22:42 | XMS_ITS | Encounter Summary ---
Author Organization [facility] Address [address] [place] [address]. [place], [place] [id number] [place] [address] Care Team Providers Care Digital Engineer Name Role Phone Pollo Warren MD Primary Care Provider +1- [phone] Encounter Details Date Type Department Care Team (Late st Contact Info) Description 04/06/2016 Abstract [facility] Medical [facility] Multispecialty Care - [facility] [address] [facility], [address] [place] [id number] Ashish Amos MD [address] [place] [address] Social History Tobacco Use Types Packs/Day Years Used Date Smoking Tobacco: Never Assessed Sex and Gender Information Value Date Recorded Sex Assigned at Not on file Legal Sex Male 8:31 PM CDT Gender Identity Not on file Sexual Orientation Not on file documented as of this encounter Progress Notes * Ashish Amos MD - 04/06/2016 9:00 AM CST Post-Op CHIEF COMPLAINT: Followup of revision ACL and partial medial meniscectomy on the left side. This was on 03/02/[address] Joseph. HISTORY OF PRESENT ILLNESS: He has been doing really well. No complaints. He is not taking any painmedication. He says he is doing therapy twice a week and getting along well. He does not like his brace. PHYSICAL EXAMINATION: He is alert and oriented. He is missing 5 degrees of terminal extension. He has healed incisions. A little bit of tenderness over the proximal tibial incision from his hamstring; however, he has excellent flexion. Endpoint with Bridget's exam, just 1+ drawer and a pretty benign knee examination. No tenderness to palpation. IMAGING: None. ASSESSMENT: Five weeks status post ACL reconstruction, partial medial meniscectomy. PLAN: Continue therapy twice a week for the next month. I will see him back in clinic for repeat examination. We will get x-rays of his knee at that time, three views of the left knee weightbearing and I think he is okay to discontinue the brace if he wishes. Orders 1. TraMADol HCl - 50 MG Oral Tablet; TAKE 1 TO 2 TABLETS EVERY 6 HOURS NEEDED FOR PAIN Signatures Electronically signed by : Ashish Amos M.D.; Apr 16 2016 7:59AM SALES DEVELOPMENT MANAGER (Author) documented in this encounter Plan of Treatment Not on file documented as of this encounter Visit Diagnoses Not on filedocumented in this encounter Care Teams Digital Engineer Relationship Specialty Start Date End Date Pollo Warren MD [address] [address] PCP - General 03/02/16 documented as of this encounter
--- OUTSIDE RECORDS SUMMARY | 2024-05-04 22:42 | XMS_ITS | Encounter Summary ---
Author Organization [facility] Address [facility] [facility]. [place], [place] [id number] [place] [address] Care Team Providers Care Acid Regenerator Name Role Phone Pollo Warren MD Primary Care Provider +1- [phone] Pollo Warren MD Primary Care Provider +- [phone] Encounter Details Date Type Department Care Team (Late st Contact Info) Description 02/07/2016 Abstract [facility] Physical Therapy [address] [place] [address] Sharon Landrum MD Social History [...] as of this encounter Visit Diagnoses Diagnosis Sprain of anterior cruciate ligament of left knee Sprain of cruciate ligament of knee documented in this encounter Care Teams Acid Regenerator Relationship Specialty Start Date End Date Pollo Warren MD [address] [facility] [address] [place] [address] PCP - General 03/02/16 Pollo Warren MD [address] [place] [address] PCP - General 02/07/16 03/01/16 documented as of this encounter
--- OUTSIDE RECORDS SUMMARY | 2024-05-05 01:19 | XMS_ITS | Continuity of Care Document ---
Author Name [facility] Organization [facility] Care Team Providers Care Bench Molder Apprentice Name Role Phone [facility] Unavailable Unavailable Social History Combined list of available smoking, tobacco, and other social history from [facility] of Defense and Veterans Affairs facilities. Social History Type Response Date Comment Sourc e This section is an empty social history section. [facility]
== END 2024-04-28 09:02 | disposition home or self-care (01) ==
PROVIDERS: PCP Physician Assistant; Visit Provider Internal Medicine Endocrinology, Diabetes & Metabolism
DX: E05.90 Thyrotoxicosis, unspecified without thyrotoxic crisis or storm (principal); R74.8 Abnormal levels of other serum enzymes
CPT/HCPCS: 36415; 76705; 84439; 84443

== ENCOUNTER 2024-09-15 06:56 | Outpatient (CLI) | payer OTHER, SELFPAY ==
--- OUTSIDE RECORDS SUMMARY | 2024-09-15 06:59 | XMS_ITS | Continuity of Care Document ---
Author Name [facility] Organization [facility] Care Team Providers Care Porcelain Finish Sprayer Name Role Phone [facility] Unavailable Unavailable Social History Combined list of available smoking, tobacco, and other social history from [facility] and Veterans Affairs facilities. Social History Type Response Date Comment Sourc e This section is an empty social history section. [facility]D
--- OUTSIDE RECORDS SUMMARY | 2024-09-15 07:00 | XMS_ITS | Data Portability ---
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 Lab influenza virus A + B + SARS-CoV-2 (COVID19) Ag panel, rapid IA, upper respiratory specimen 2024 025 [email or web address] In-Office Order, Internal Use Only DO Not Attach Compendium DO Not Attach Compendium, Do Not Delete/merge, [id number] 5 11:24:55 lipid panel, serum 2023 024 [facility] (Lab), [address] [facility] [address], [place], [address], 4 10:50:38 T3, free, serum or plasma 2023 024 [facility] (Lab), [address] [facility] [address], [place], [address], 4 10:50:38 T4, free, serum 2023 024 [facility] (Lab), [address] [place] [address], [address], 4 10:50:38 TSH, serum or plasma 2023 024 [facility] (Lab), [address] [place] [address], [address], 4 10:50:38 HbA1c (hemoglobin A1c), blood 2023 024 [facility] (Lab), [address] [place] [address], [address], 4 13:51:53 PSA, serum or plasma 2023 024 [facility] (Lab), [address] [place] [address], [address], 4 10:50:38 HbA1c (hemoglobin A1c), blood 2022 023 [facility] In-Office Order, Internal Use Only DO Not Attach Compendium DO Not Attach Compendium, Do Not Delete/merge, [id number] 3 15:41:07 TSH, serum or plasma [address] (Lab), [address] [place] [address], [address], 3 12:19:59 T4, free, serum [address] (Lab), [address] [place] [address], [address], 3 12:20:00 T3, free, serum or plasma 2022 023 [facility] (Lab), [address] [place] [address], [address], 3 18:57:32 lipid panel, serum 2022 023 [facility] (Lab), [address] [place] [address], [address], 3 19:27:59 CMP, serum or plasma 2022 023 [facility] (Lab), [address] [place] [address], [address], 3 13:31:46 CBC 2022 023 [facility] (Lab), [address] [place] [address], [address], 3 13:05:59 Referral None recorded. Procedures None recorded. Surgeries None recorded. Imaging XR, lumbosacral spine, 2 or 3 view 2021 022 [facility], [address], [address], 2 16:59:40 XR, thoracic spine, 3 view 2021 022 [facility], [facility] [address], [address], 2 15:18:43 Medication Orders Zithromax 250 mg tablet 2024 025 [facility] #[id number], [address] [place], [address], 5 11:24:57 Medrol (Cm) 4 mg tablets in a dose pack 2024 025 [facility] #[id number], [address] [place], [address], 5 11:24:58 atorvastati n 10 mg tablet 2023 024 [facility] Not available 4 10:58:57 famotidine 40 mg tablet 2023 024 [facility] Not available 4 10:58:59 meloxicam 15 mg tablet 2023 024 [facility] Not available 4 10:59:01 atorvastati n 10 mg tablet 2022 023 [facility] Not available 3 15:15:49 meloxicam 15 mg tablet 2022 023 [facility] Not available 3 15:15:45 famotidine 40 mg tablet 2022 023 [facility] Not available 3 15:15:44 atorvastati n 10 mg tablet 2022 023 [facility] Not available 3 12:19:54 famotidine 40 mg tablet 2022 023 [facility] Not available 3 12:19:57 cyclobenzap rine 5 mg tablet 2021 022 [id number], [address] [place], [place], [id number], 3 14:41:15 prednisone 20 mg tablet 2021 022 [id number], [address] [place], [place], [id number], 3 14:41:27 Patient TargetsNo targets recorded. Patient Instructions Encounter Date Encounter Id Patient Instructions Last Modified By Organization Details Last Modified Time 11/09/2021 [id number] healthy upper ba ck: exercises [email or web address] Not available 11/09/2021 11:13:52 body mass index: care instructions [email or web address] Not available 11/09/2021 12:28:00 learning about healthy weight [email or web address] Not available 11/09/2021 12:28:00 Simon rivera for your visit - Use medications as directed. - Review additional exercise/stretching handouts. - Apply low heat to affected area, 20 to 30 min., 2 3 times daily prior to stretching. - have your imaging studies done at your earliest convenience - results will be available on the patient portal with any additional recommendations from me - please call with an update in 2 weeks - call with any concerns. [email or web address] Not available 11/09/2021 11:15:47 Reason for Referral None Reported. Results Created Date Observation Date Name Description Value Unit Range Abnormal Flag Note LastModifiedBy Organization Detail LastModifiedTime 03/19/20 23 03/19/2023 HbA1c (hemo globi n A1c), blood HbA1c 5.7 Not Available In-Office Order Internal Use Only DO Not Attach Compendium DO Not Attach Compendium, Do Not Delete/merge, [id number] 03/19/2023 15:18:31 05/19/19 25 05/19/2024 influ juan miguel virus A + B + SARS- CoV-2 (COVI D19) Ag panel , rapid IA, upper respi rator y speci men Flu A negati ve Not Available In-Office Order Internal Use Only DO Not Attach Compendium DO Not Attach Compendium, Do Not Delete/merge, [id number] 05/19/2024 11:06:41 05/19/19 25 05/19/2024 influ juan miguel virus A + B + SARS- CoV-2 (COVI D19) Ag panel , rapid IA, upper respi rator y speci men Flu B negati ve Not Available In-Office Order Internal Use Only DO Not Attach Compendium DO Not Attach Compendium, Do Not Delete/merge, [id number] 05/19/2024 11:06:41 05/19/19 25 05/19/2024 influ juan miguel virus A + B + SARS- CoV-2 (COVI D19) Ag panel , rapid IA, upper respi rator y speci men Rapid SARS CoV 2 Ag, QL IA, respiratory specimen negati ve Not Available In-Office Order Internal Use Only DO Not Attach Compendium DO Not Attach Compendium, Do Not Delete/merge, [id number] 05/19/2024 11:06:41 12/03/19 22 12/01/2021 XR, thora cic spine , 3 view No observ ation record ed. [facility] [address], [place], [address], 12/04/2021 15:31:29 10/05/19 23 10/02/2022 NM, thyro id scan No observ ation record ed. [email or web address] [facility] [address], [place], [address], 03/19/2023 14:59:53 02/24/20 24 01/29/2024 sleep study , diagn ostic (PROC ) No observ ation record ed. [email or web address] Not Available 2023 21:33:57 04/28/19 25 04/28/2024 US, abdom en No observ ation record ed. [email or web address] [facility] [address], [place], [address], 04/28/2024 13:09:01 Result Notes None recorded. Problems Name Problem SNOMED Code Status Onset Date Resolution Date Notes Provider Name and Address Organization Details Recorded Time History of calculus of kidney 377022005 Active 2017 Brady Parmar MD Attn: Accounting ,[address] [place], [address] , [facility] 2 11:21:52 Hyperthy roidism 95844640 Active 2018 Brady Parmar MD Attn: Accounting ,[address] [facility], [place], [address] , [facility] 2 11:21:18 Indigest ion 117658824 Active 2021 Brady Parmar MD Attn: Accounting ,[address] [place], [address] , [facility] 2 11:21:43 Acute low back pain 866950948 Active 2021 Brady Parmar MD Attn: Accounting ,[address] [place], [address] , [facility] 2 11:21:35 Thoracic back pain 921335917 Active 2021 Brady Parmar MD Attn: Accounting ,[address] [facility], [place], [place], [address] [place] [address] , [facility] 2 11:21:29 Obstruct clyde sleep apnea syndrome 54259170 Active 2024 GADIEL Khoury Attn: Accounting ,[address] [facility], [place], [place], [address] [place] [address] , [facility] 5 11:18:52 Shoulder joint pain 297431552 Completed 201103/22/2012 Location : None;Sev erity: Moderate ;Progres s: Stable;A dded By: Shilpi Castro;Add to Current Problems : NO Brady Parmar MD Attn: Accounting ,[address] [facility], [place], [place], [address] [place] [address] , [facility] 2 11:23:44 Acute upper respirat ory infectio n of multiple sites Completed 201407/03/2014 Location : None;Sev erity: Moderate ;Progres s: Stable;A dded By: Lila Gaspar;Add to Current Problems : YES Brady Parmar MD Attn: Accounting ,[address] [facility], [place], [place], [address] [place] [address] , [facility] 2 11:23:45 Chronic rhinitis 90608307 Active 2012 Location : None;Sev erity: Moderate ;Progres s: Stable;A dded By: Kandi Warren;Add to Current Problems : NO Not Available [facility] 7 11:01:06 Contact dermatit is 29478108 Completed 201306/01/2013 Location : None;Sev erity: Moderate ;Progres s: Stable;A dded By: Kandi Warren;Add to Current Problems : NO Brady Parmar MD Attn: Accounting ,[address] [facility], [place], [place], [address] [place] [address] , [facility] 2 11:23:45 Acute maxillar y sinusiti s 65598943 Completed 201408/01/2014 Location : None;Sev erity: Moderate ;Progres s: Stable;A dded By: Kandi Warren;Add to Current Problems : YES Brady Parmar MD Attn: Accounting ,[address] [place], [place], [address] [place] [address] , [facility] 2 11:23:45 Family history of malignan t neoplasm of prostate 531301412 Active 2014 Location : None;Sev erity: Moderate ;Progres s: Stable;A dded By: Roxie Childers;Add to Current Problems : YES Not Available [facility] 7 11:01:06 Mixed hyperlip idemia 215310320 Active 2013 Location : None;Sev erity: Moderate ;Progres s: Stable;A dded By: Lilian Ghosh;Add to Current Problems : NO Not Available [facility] 7 11:01:06 Foreign body in ear 38146568 Completed 201307/09/2013 Location : None;Sev erity: Moderate ;Progres s: Stable;A dded By: Mary Mohamud;Add to Current Problems : NO Brady Parmar MD Attn: Accounting ,[address] [place], [place], [address] [place] [address] , [facility] 2 11:23:45 Allergic rhinitis 60247720 Completed 201404/25/2015 Location : None;Sev erity: Moderate ;Progres s: Stable;A dded By: Mary Mohamud;Add to Current Problems : YES Brady Parmar MD Attn: Accounting ,[address] [place], [place], [address] [place] [address] , [facility] 2 11:23:45 Acute pharyngi tis 801369895 Completed 201404/25/2015 Location : None;Sev erity: Moderate ;Progres s: Stable;A dded By: Mary Mohamud;Add to Current Problems : YES Brady Parmar MD Attn: Accounting ,[address] [place], [place], [address] [place] [address] , [facility] 2 11:23:45 Allergic urticari a 60411180 Completed 201406/19/2015 Location : None;Sev erity: Moderate ;Progres s: Stable;A dded By: Mary Mohamud;Add to Current Problems : YES Brady Parmar MD Attn: Accounting ,[address] [place], [place], [address] [place] [address] , [facility] 2 11:23:45 Acute sinusiti s 64291761 Completed 201411/04/2014 Location : None;Sev erity: Moderate ;Progres s: Stable;A dded By: Leatha Gomez; Add to Current Problems : YES Brady Parmar MD Attn: Accounting ,[address] [place], [place], [address] [place] [address] , [facility] 2 11:23:44 Otogenic otalgia 46029894 Completed 201307/09/2013 Location : None;Sev erity: Moderate ;Progres s: Stable;A dded By: Agnes Iverson; Add to Current Problems : NO Brady Parmar MD Attn: Accounting ,[address] [place], [place], [address] [place] [address] , [facility] 2 11:23:45 Problem Notes None recorded. Procedures Surgical History Date Name Laterality Status Provider Name and Address Organization Details Recorded Time 03/02/20 16 Unlisted px arthroscopy completed [facility] 08/31/2016 13:49:58 10/21/19 11 Knee Surgery completed [facility] 08/31/2016 13:49:37 04/22/19 03 Hernia Repair completed [facility] 08/31/2016 13:49:45 Imaging Results None recorded. Procedure Notes None recorded. Medical Equipment None Reported. Allergies Allergen ID Allergen Name Allergen Category Reaction Reaction Severity Criticality Documentation Date Start Date Code Code System Note Provider Name and Address Organization Details Recorded Time 57473 morphine sulfate medicatio n itching moderate Not available 04/25/20162011 52177 RxNorm React ion: itchi ng;Se verit y: Moder ate; Comme nt: Aller gy Type: Adver se React ion; Not Available [facility] 7 03:49:32 Medications Name Sig Start Date Stop Date Status Note LastModified by Organization Details LastModified Time prednisone 10 mg tablet TAKE 1 TABLET BY MOUTH DAILY IN THE MORNING 05/19 completed Not Available Not Available Not Available cefuroxime axetil 250 mg tablet TAKE 1 TABLET BY MOUTH TWICE DAILY 05/23 completed Not Available Not Available Not Available Ceftin 500 mg tablet Take 1 tablet(s) by mouth bid for 10 days 04/15 completed RxNorm : 797219 ;Allow Substi tution : True Not Available Not Available Not Available triamcinol one acetonide 0.5 % topical cream Apply thin film to affected area bid <2 weeks. 09/15 completed RxNorm : 972659 ;Allow Substi tution : True Not Available Not Available Not Available atorvastat in 10 mg tablet TAKE 1 TABLET BY MOUTH EVERY NIGHT AT BEDTIME 2023 active Not Available Not Available Not Avai lable azithromyc in 250 mg tablet TAKE 2 TABLETS BY MOUTH TODAY, THEN TAKE 1 TABLET DAILY FOR 4 DAYS DIRECTED active Not Available Not Available No t Available meloxicam 15 mg tablet Take 1 tablet [...] tablet Take 2 tablet(s) by mouth q24h 05/19 completed RxNorm : 965689 ;Allow Substi tution : True Not Available [...] 1 TABLET BY MOUTH EVERY 12 HOURS 05/19 completed Not Available Not Available Not Available Afrin Menthol [place] 0.05 % nasal spray 2 to 3 spray(s) in each nostril q12h 10/04 completed RxNorm : 651291 2;Allo w Substi tution : True Not Available Not Available Not Available tamsulosin 0.4 mg capsule 05/30 completed Not Available Not Available Not Available cephalexin 500 mg capsule Take 1 capsule every 8 hours by oral route for 10 days. 08/31 completed Not Available Not Available Not Available methimazol e 5 mg tablet Take 1 tablet every day by oral route. active Not Available Not Available No t Available mupirocin 2 % topical ointment APPLY A SMALL AMOUNT TO THE Nose BY TOPICAL ROUTE 3 TIMES PER DAY 07/13 completed Not Available Not Available Not Available azelastine 137 mcg (0.1 %) nasal spray USE 1 SPRAY IN EACH NOSTRIL EVERY 12 HOURS 11/09 completed Not Available Not Available Not Available methylpred nisolone 4 mg tablets in a dose pack PLEASE SEE ATTACHED FOR DETAILED DIRECTION S active Not Available Not Available No t Available methimazol e 10 mg tablet TAKE 2 TABLETS BY MOUTH DAILY 05/19 completed Not Available Not Available Not Available ondansetro n 4 mg disintegra ting [...] tablet (2.5mg) daily. 06/08 completed RxNorm : 033305 ;Allow Substi tution : True Not Available [...] blood by Pulse oximetry Heart rate Systolic And Diastolic Provider Name and Address Organization Details Last Updated DateTime 5 175.26 cm 32.1 kg/m2 08741.2 9 g 96.3 [degF] 95 % 95 % 84 /min 135/90 mm[Hg] Cecelia Farooq MA [facility] 5 11:05:54 Date Recorded Systolic And Diastolic Provider Name and Address Organization Details Last Updated DateTime 07/25/2023 122/84 mm[Hg] Radhika Khoury Attn: Accounting,[address] [place], [address], [facility] 07/25/2023 10:44:32 Date Recorded Body height Body mass index (BMI) Body weight Body temperature Oxygen saturation Oxygen saturation in Arterial blood by Pulse oximetry Heart rate Systolic And Diastolic Provider Name and Address Organization Details Last Updated DateTime 4 175.26 cm 32 kg/m2 76434.5 4 g 97.3 [degF] 96 % 96 % 93 /min 114/81 mm[Hg] Ambreen Bustos MA [facility] 4 10:31:45 Date Recorded Body height Body mass index (BMI) Body weight Body temperature Oxygen saturation Oxygen saturation in Arterial blood by Pulse oximetry Heart rate Systolic And Diastolic Provider Name and Address Organization Details Last Updated DateTime 3 175.26 cm 32.2 kg/m2 47199.1 4 g 97.1 [degF] 96 % 96 % 85 /min 130/78 mm[Hg] Ambreen Bustos MA [facility] 3 11:49:38 Date Recorded Body height Body mass index (BMI) Body weight Body temperature Oxygen saturation Oxygen saturation in Arterial blood by Pulse oximetry Heart rate Systolic And Diastolic Provider Name and Address Organization Details Last Updated DateTime 2 175.26 cm 32.4 kg/m2 76363.5 3 g 97.7 [degF] 97 % 97 % 79 /min 120/80 mm[Hg] Sonido Rodríguez MA [facility] 2 10:19:36 Date Recorded Body height Body mass index (BMI) Body weight Oxygen saturation Oxygen saturation in Arterial blood by Pulse oximetry Heart rate Body temperature Systolic And Diastolic Provider Name and Address Organization Details Last Updated DateTime 3 175.26 cm 32 kg/m2 45208.5 4 g 98 % 98 % 90 /min 97.5 [degF] 128/83 mm[Hg] Josephine Mark MA [facility] 3 14:40:49 Social History Question Answer Notes LastModified by Organizat ion Details LastModified Time Tobacco Smoking Status Never Smoker Sia Mendez Located [facility] 05/30/2018 14:39:17 Do You Have An Advance Directive? No Information not available 05/23/2021 Are You Blind Or Do You Have Difficulty Seeing? No Information not available 05/23/2021 What Is Your Level Of Caffeine Consumption? Occasional Information not available 05/23/2021 Are You Deaf Or Do You Have Serious Difficulty Hearing? No Information not available 05/23/2021 What Type Of Diet Are You Following? REGULAR Information not available 05/23/2021 What Was The Date Of Your Most Recent Tobacco Screening? 05/19/2024 [email or web address] Information not available 05/19/2024 What Is Your Relationship Status? Information not available 05/23/2021 Do You Use Your Seat Belt Or Car Seat Routinely? Yes Information not available 05/23/2021 Do You Have Smoke And Carbon Monoxide Detectors In Your Home? Yes Information not available 05/23/2021 Are You Passively Exposed To Smoke? No Information no t available 05/23/2021 Has Tobacco Cessation Counseling Been Provided? No Information not available 07/13/2020 Sex: Male Functional Status Question Answer Note LastModified by Organizat ion Details LastModified Time Do you use any illicit or recreational drugs? No Information not available 07/13/2020 Do you or have you ever used any other forms of tobacco or nicotine? No Information not available 07/13/2020 What is your level of alcohol consumption? None Information not available 07/13/2020 Are you currently employed? Yes Information not available 05/23/2021 Are you able to care for yourself? Yes Information n ot available 05/23/2021 What is your exercise level? Occasional Information not available 05/23/2021 Mental Status Question Answer Note LastModified by Organization D etails LastModified Time Do you feel stressed (tense, restless, nervous, or anxious, or unable to sleep at night)? RS0514-1 Information not available 05/23/2021 Family History Relationship Description Onset Age of this Age Resolved Age Notes LastModified by Organization Details LastModified Time Father Malignant tumor of colon [email or web address] Not available 16:37:17 Father Malignant neoplasm of prostate [email or web address] Not available 16:37:23 Paternal Grandmother Coronary arterioscler osis [email or web address] Not available 03/2017 13:50:10 Paternal Grandmother Type 2 diabetes mellitus [email or web address] Not available 03/2017 13:50:25 Maternal Grandfather Coronary arterioscler osis [email or web address] Not available 03/2017 13:50:10 Paternal Uncle Malignant neoplasm of prostate [email or web address] Not available 03/2017 13:50:15 Medical History Condition Response Coronary Artery Disease N Other N High Blood Pressure N Atrial Fibrillation N Kidney or Bladder Problems N Thyroid Problems N GI Problems N Depression N COPD N Blood Clots N Skin Problems N Anemia N Heart Attack (SC) N Anxiety Disorder N Diabetes N Muscle, Joint, or Bone Problems Y Seizures/Epilepsy N Acid Reflux (GERD) N Cancer N Stroke N Asthma N Allergies N High Cholesterol N Hepatitis N Liver Disease N Headaches N Osteoporosis N Heart Failure N Immunizations Vaccine Type Date Status Note Provider Nam e and Address Organization Details Recorded Time COVID-19, mRNA, LNP-S, PF, 30 mcg/0.3 mL dose 1 completed GADIEL Khoury Attn: Accounting[address] [place], [address], [place] [facility] 03/19/2023 14:57:41 Influenza, split virus, quadrivalent, preservative 1 completed Amy Perez MA [place], [place] [facility] 05/23/2021 11:33:52 COVID-19, mRNA, LNP-S, PF, 30 mcg/0.3 mL dose 1 completed GADIEL Khoury Attn: Accounting[address] [place], [address], [place] [facility] 03/19/2023 14:57:41 COVID-19, mRNA, LNP-S, PF, 30 mcg/0.3 mL dose 1 completed GADIEL Khoury Attn: Accounting[address] [place], [address], [place] [facility] 03/19/2023 14:57:41 COVID-19, mRNA, LNP-S, PF, 30 mcg/0.3 mL dose 0 completed GADIEL Khoury Attn: Accounting[address] [place], [address], [place] [facility] 03/19/2023 14:57:41 COVID-19, mRNA, LNP-S, bivalent, PF, 30 mcg/0.3 mL dose 2 completed GADIEL Khoury Attn: Accounting,[address] [place], [address], [place] [facility] 03/19/2023 14:57:41 COVID-19, mRNA, LNP-S, PF, sean-sucrose, 30 mcg/0.3 mL 3 completed GADIEL Khoury Attn: Accounting[address] [facility], [place], [place], [address] [place] [address], [facility] 03/19/2023 14:57:41 Influenza, split virus, trivalent, preservative 6 completed GADIEL Khoury Attn: Accounting[address] [facility], [place], [place], [address] [place] [address], [place] [facility] 03/19/2023 14:57:41 Influenza, split virus, trivalent, PF 7 completed GADIEL Khoury Attn: Accounting[address] [facility], [place], [place], [address] [place] [address], [facility] 03/19/2023 14:57:41 Influenza, split virus, quadrivalent, PF 8 completed GADIEL Khoury Attn: Accounting[address] [facility], [place], [place], [address] [place] [address], [place] [facility] 03/19/2023 14:57:41 Influenza, split virus, trivalent, PF 4 completed GADIEL Khoury Attn: Accounting[address] [place], [address] [place] [address], [place] [facility] 05/19/2024 11:18:06 Influenza, split virus, quadrivalent, PF 3 completed GADIEL Khoury Attn: Accounting[address] [place], [address] [place] [address], [place] [facility] 05/19/2024 11:18:06 influenza, seasonal, intradermal, preservative free 2 completed Not Available [facility] 05/23/2019 02:11:40 Influenza, split virus, trivalent, preservative 4 completed Not Available [facility] 04/25/2016 05:33:15 Influenza, split virus, quadrivalent, preservative 5 completed Not Available [facility] 05/23/2019 02:11:40 Tdap 2 completed Not Available [facility] 04/25/2016 05:33:15 Past Encounters Encounter ID Performer Location Encounter Start Date Encounter Closed Date Diagnosis/Indication Diagnosis SNOMED-CT Code Diagnosis ICD10 Code Diagnosis Note [id number] Kayy Arnold MD [facility] [address] [place] [address] 05/15/2016 15:42:18 05/16/2016 15:53:40 Screening for malignant neoplasm of prostate 887305250 Z12.5 Mixed hyperlipidemia 267 625232 E78.2 Acute maxi llary sinusitis 66119301 J01.00 [id number] Kayy Arnold MD [facility] [address] [place] [address] 08/31/2016 14:57:35 09/02/2016 09:59:48 Strain of neck muscle 155586856 S16.1XXA if patient calls back --refer to pain management and get XR - C-spine Mixed hyperlipidemia 267 006102 E78.2 [id number] Funmilayo Goodwin MD [facility] [address] [place] [address] 08/12/2017 11:30:10 08/12/2017 21:06:03 Mixed hyperlipidemia 151309148 E78.2 will fast and have labs at [facility]. Family his tory of malignant neoplasm of prostate 372040935 Z80.42 Adult heal th examination 848102412 Z00.00 heart healthy diet and routine exercise discussed and f/u yearly, Filled out forms for [employer] [facility] his tory of diabetes mellitus 462137116 Z83.3 Costal chondritis 110688 04 M94.0 ICE and rest prn [id number] Kayy Arnold MD [facility] [address] [place] [address] 10/29/2017 10:29:59 10/30/2017 11:10:58 Mixed hyperlipidemia 314409845 E78.2 Thyrotoxicosis 73531714 E05.90 He will call himself to the endocrinol ogist we referred to in [place], Dr. Ma, and try to get in this week due to his insurance lapsing in a week or two. He will regain insurance in about 1-2 months through 's new job at [employer] Insomnia [id number] G47.0 0 Tremor 76421864 R25.1 [id number] Kayy Arnold MD [facility] [address] [facility] [address] [place] [address] 05/30/2018 14:36:00 06/02/2018 09:50:32 Rhinitis medicamentosa 88541980 J31.0 Deviated nasal septum 12 5944017 J34.2 Hyperthyroidism 98807804 E05.90 Family his tory of malignant neoplasm of prostate 268395641 Z80.42 Adult heal th examination 340233758 Z00.00 heart healthy diet and routine exercise discussed and f/u yearly, Filled out forms for [employer] de rmatitis of hand 960951725 L25.9 Hand pain 33603554 M79.6 42 Hyperlipidemia 82060337 E78.5 continue statin and healthy diet. [id number] Kayy Arnold MD [facility] [address] [facility] [address] [place] [address] 05/15/2019 09:38:26 05/18/2019 09:50:46 Costal chondritis 52956785 M94.0 discuss PT or pain management , he wants to hold off, doesn't limit him. Hyperthyroidism 49128045 E05.90 Mixed hyperlipidemia 267 297061 E78.2 has labs drawn at [facility] since he is an employee there Family his tory of malignant neoplasm of prostate 651141325 Z80.42 Adult heal th examination 413740263 Z00.00 heart healthy diet and routine exercise discussed and f/u yearly, Nasal vestibulitis 98235 000 J34.89 [id number] Kayy Arnold MD [facility] [address] [facility] [address] [place] [address] 08/11/2019 13:02:39 08/11/2019 14:55:04 Acute pharyngitis 744240980 J02.9 He will suck on some lozenges, stay hydrated and call us with any added symptoms, like cough, return of fever, sinus symptoms, etc. Otherwise will await culture results. [id number] Kayy Arnold MD [facility] [address] [facility] [address] [place] [address] 07/13/2020 10:53:48 07/13/2020 17:27:42 Chronic rhinitis 12181995 J31.0 Mixed hyperlipidemia 267 320044 E78.2 Hyperthyroidism 62286909 E05.90 per [facility] Family his tory of malignant neoplasm of prostate 097111487 Z80.42 Snoring symptoms 7032084 00 R06.83 wants to see ENT per request Gastroesop hageal reflux disease 694019836 K21.9 can still take TUMS prn, avoid late meals, acidic and spicy foods, carbonatio n. 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 Indigestion 722108384 K3 0 nosymptoms while on famotidine , will refill. Hyperthyroidism 91115185 E05.90 per [facility], but would potentiall y like to get establishe d with new group. he will call for referral in the future, will copy labs to [facility] Family his tory of malignant neoplasm of prostate 019417138 Z80.42 Lateral ep icondylitis of right humerus 7304646237 91541 M77.11 Neck pain 97286349 M54.2 If no better with MDP adn then continue NSAIDS where he would like further interventi on, he agrees to xray and PT, orders printed. [id number] Brady Parmar MD [facility] [address] [facility] [address] [place] [address] 11/09/2021 10:01:33 11/09/2021 16:59:40 Acute low back pain 973490387 M54.50 - persistent symptoms > 6 weeks-- will obtain radiograph s to rule out acute bony abnormalit ies-- handouts provided for low back pain- trial of oral corticoste roids, skeletal muscle relaxant- consider physical therapy, advanced imaging depending on response Thoracic back pain 92370 8004 M54.6 - symptoms ongoing > 6 weeks- thoracic radiograph s- medication s as above, handouts Body mass index 30+ - obesity 015641108 Z68.32 Healthy adult recommenda tions: Focus on a healthy diet, with exercise as tolerated, targeting 30-60 minutes of exercise daily, at least 5 days per week. Long-term drug therapy 207721461 Z79.198 [id number] Brady Parmar MD [facility] [address] [facility] [address] [place] [address] 08/07/2022 11:13:34 08/10/2022 15:15:55 Mixed hyperlipidemia 639660538 E78.2 will have fasting labs at [facility] at his earliest convenienc e. Printed order for lab. Gastroesop hageal reflux disease 381245934 K21.9 takes one famotidine daily and an extra if eating something acidic Adult heal th examination 904125755 Z00.00 heart healthy diet and routine exercise discussed. Defers colon cancer screening until 48 Hyperthyroidism 87532023 E05.90 per [facility], due for repeat labs. Administra tion of diphtheria, pertussis, and tetanus vaccine 743503293 Z23 out of [employer]rix today, will give at earliest convenienc e when back in stock. [id number] Brady Parmar MD [facility] [address] [place] [address] 03/19/2023 14:07:02 03/20/2023 10:36:47 Mixed hyperlipidemia 118666106 E78.2 UTD On lab this past May Gastroesop hageal reflux disease 057081475 K21.9 takes one famotidine daily and an extra if eating something acidic. Symptoms improved except for this week with this GI bug. Thoracic back pain 17912 8004 M54.6 reviewed his xrays with him again, and advised trial meloxicam instead of prn otc ibuprofen, and continued chiropract ic care. To call if no better to consider further imaging to consider MRI or CT. Has radiated pain to left chest from the left mid back. Viral gastroenteritis 11 0474042 A08.4 switch to immodium prn, BRAT diet and clear liquids... MUCH improved today, diarrhea slowing down. Family his tory of diabetes mellitus 258384343 Z83.3 [id number] Brady Parmar MD [facility] [address] [place] [address] 07/25/2023 10:21:30 07/25/2023 14:37:10 Screening for malignant neoplasm of prostate 047751967 Z12.5 Hyperthyroidism 25268124 E05.90 per [facility], TSH normal in January and April, will copy results to endocrinol og for upcoming appt. Mixed hyperlipidemia 267 963829 E78.2 UTD On lab this past August 2022, will have done fasting at [facility] at convenienc e, no change in statin. CMP ok in 02/11 Prediabetes 604046660 R7 3.03 5.7 last A1C in January, requesting repeat. Gastroesop hageal reflux disease 452138023 K21.9 takes one famotidine daily and an extra if eating something acidic. Symptoms improved except for this week with this GI bug. Thoracic back pain 24750 8004 M54.6 reviewed his xrays with him again, meloxicam does help and less tough on his stomach that ibuprofen. [id number] Funmilayo Goodwin MD [facility] [address] [place] [address] 05/19/2024 10:45:14 05/19/2024 15:24:24 Upper respiratory infection 51433687 J06.9 with very tight upper chest, thick colored sputum, low grad fevers. Will treat for bacterial involvemen t, continue mucinex, stay very hydrated, humidifier recommende d. Call with any continued fevers, or SOB for CXR. Health Concerns Section Related Observation LastModified by Organization Detai ls LastModified Time None Recorded Concern Status LastModified by Organization Details LastModified Time None Recorded Advance Directives Directive N: Payers Encounter Date Sequence Insurance Name Policy Number Policy Ward Covered Member ID Ward Member ID Guarantor Name 11/09/2021 1 [facility] [id number] Simon Tilley [id number] Simon Tilley 08/07/2022 1 R [id number] Simon Tilley [id number] Simon Tilley 03/19/2023 1 [employer] [id number] Simon Tilley [id number] Simon Tilley 07/25/2023 1 [employer] [id number] Simon Tilley [id number] Simon Tilley 05/19/2024 1 [employer] [id number] Simon Tilley [id number] Simon Tilley Notes Date Note Type Note Provider Name and Address Organization Details Recorded Time 11/09/2021 text/html Back PainReporte d bypatient.Location:[place] radiating to the buttocks(hips groin whole back) Quality:sharp(bottom); dull(aches top) Severity:same;severe (8-10);interference with sleep Duration:acute Onset/Timinweeks ago Context:unknown-- tried otc pain meds to help Aggravating Factors:movement/posit ioning;twisting;flexin g back;extending back Associated Symptoms:no fever; no weak limbs; no incontinence; no shortness of breath;numbness of the legs/feet;tinglingNote s:-Consumer Insights Specialist/Nursing note reviewed above.-Simon reports relatively acute onset [...] back problems- neck, right epicondyle- Seen by PA 06/13- physical therapy referral, not especially helpful- has noted some paresthesias to upper extremities, left greater than right- feels symptoms under shoulder blades No weakness or paresthesias.No bowel or bladder issues Brady Parmar MD Attn: Accounting,[address] [facility], [place], [address], [place] - [facility] 11/09/2021 13:26:49 03/19/2023 text/html DiarrheaReported bypatient.Quality:impr oving;watery [...] Xrays normal. GADIEL Khoury Attn: Accounting[address] [place], [address], [place] - [facility] 03/20/2023 09:21:49 07/25/2023 text/html [...] refills today. GADIEL Khoury Attn: Accounting[address] , [place], [address], [facility] 07/25/2023 11:03:34 05/19/2024 text/html Upper Respirator y SymptomsReported bypatient.Location:[facility]; chest Quality:productive cough;sharp throat pain;congested Severity:moderate Onset/Timing:Started over the weekend. Context:went to [place] a week ago. Modifying Factors:OTC medication Associated Symptoms:chest pain;shortness of breath;difficulty breathing at night;fatigue;sweats;s ore throat;nauseaNotes:Muc inex no help, pseudofed no help. SASHA, couldn't do the CPAP, did get fitted for a mouth piece, not sure if it's helping. Falls asleep fine, just restless night's sleep. Will ask endo about zepbound for SASHA, due to thyroid history, no cancer just chronically hyperthyroid. Started feeling bad on Saturday, tired heaviness in chest, sob, sweating, fever?, feels like his phlegm is thick and hard to cough up.SOB, very sweaty. Deep cough. No registered any fever. No one else sick at home. GADIEL Khoury Attn: Accounting[address] [facility], [place], [address], [facility] 05/19/2024 11:45:27
[2024-09-15 08:13] LABS: Hemoglobin 15.5 g/dL (14.0-18.0); Mean Corpuscular Hemoglobin 29.5 pg (26-34); Mean Corpuscular Volume 89.4 fl (80-100); Mean Platelet Volume 11.4 fl (7.4-10.4); Platelet Count Result 170 k/mm3 (150-375); Red Blood Count 5.26 M/mm3 (4.6-6.20); Red Cell Distribution Width 12.9 % (11.5-14.5); White Blood Count 5.5 K/mm3 (4.5-10.0)
[2024-09-15 09:27] LABS: LDL Cholesterol Direct 75 mg/dL
[2024-09-15 09:40] LABS: Hemoglobin A1C 5.3 % (<5.7)
[2024-09-15 09:41] LABS: Alanine Aminotransferase 79 U/L (6-50); Albumin Level 4.4 g/dL (3.5-5.1); Alkaline Phosphatase 36 U/L (38-126); Anion Gap 7 mmol/L (4-12); Aspartate Amino Transferase 60 U/L (17-59); Bilirubin,Total 0.7 mg/dL (0.2-1.3); Blood Urea Nitrogen 16 mg/dL (9-20); Calcium 8.7 mg/dL (8.4-10.2); Carbon Dioxide 28 mmol/L (22-30); Chloride 107 mmol/L (98-107); Cholesterol 153 mg/dL (0-200); Estimated Glomerular Filt Rate > 60; Glucose 92 mg/dL (65-110); HDL Direct 46 mg/dL; Potassium 3.9 mmol/L (3.4-5.0); Sodium 142 mmol/L (137-145); Triglycerides 106 mg/dL (<150)
[2024-09-15 09:43] LABS: Free T4 Free Thyroxine 1.02 ng/dL (0.78-2.19)
[2024-09-15 09:46] LABS: Prostate Specific Antigen 1.1 ng/mL (< OR = 4.0)
== END 2024-09-15 06:57 | disposition home or self-care (01) ==
PROVIDERS: PCP Physician Assistant; Visit Provider Internal Medicine Endocrinology, Diabetes & Metabolism
DX: I10 Essential (primary) hypertension (principal); Z13.1 Encounter for screening for diabetes mellitus; Z12.5 Encounter for screening for malignant neoplasm of prostate; E05.00 Thyrotoxicosis with diffuse goiter without thyrotoxic crisis or storm; R74.8 Abnormal levels of other serum enzymes
CPT/HCPCS: 36415; 80053; 80061; 83036; 84153; 84439; 84443; 85027; G0103

== ENCOUNTER 2025-01-27 06:52 | Outpatient (CLI) | payer OTHER, SELFPAY ==
--- NOTE | ~2025-01-27 | XR_ITS ---
EXAMINATION: XR hand BI arthritis min 3V, 01/27/2025 7:15 CDT HISTORY: M18.9 - Osteoarthritis of first carpometacarpal joint, un... COMPARISON: No comparisons available. Findings: No acute fracture or malalignment. Moderate to severe degenerative changes of the first metacarpal carpal joints bilaterally Soft tissues unremarkable. Impression: No acute fracture or malalignment. Reviewed, dictated and finalized at location P. Impression: No acute fracture or malalignment.
[2025-01-28 07:09] LABS: Measles Antibodies, IgG 16.6 AU/mL (Immune >16.4)
== END 2025-01-27 06:53 | disposition home or self-care (01) ==
LOC: ANHLAB 06:54
PROVIDERS: PCP Physician Assistant; Visit Provider Physician Assistant
DX: Z01.84 Encounter for antibody response examination (principal); M18.9 Osteoarthritis of first carpometacarpal joint, unspecified
CPT/HCPCS: 36415; 73130; 86735; 86762; 86765

== ENCOUNTER 2025-03-05 14:45 | Outpatient (RCR) | payer OTHER, SELFPAY ==
--- NOTE | 2025-02-12 14:11 | OTOPEVAL1 ---
Assessment and note entered by Carlos Delatorre, OTR/Johan, CHT OT Evaluation Information Assessment Status Evaluation Diagnosis OA of first CMC ICD-10 Condition Codes (OT) Pain in right hand M79.641,Pain in left hand M79. 642 Subjective Information Patient presents with bilateral thumb pain and dx of 1st CMC OA bilaterally. He reports constantly being in at least 1/10 pain, does not get to 0/10. Pinching causes 10/10 pain. He works in IT. Assessment OT Clinical Summary Patient referred to OT with bilateral thumb CMC OA . He presents with intact functional ROM, with pain during end range wrist deviation and wrist flexion. Pain and discomfort with resisted data lead and pinch activities with diminishes data lead and pinch strength. Today a hand based thumb spica was fabricated for the left thumb. Active ROM HEP was issued. Joint protection education was initiated. Continued skilled OT indicated for fabrication of a right thumb spica, continued joint protection education, modalities, manual therapy, therapeutic exercise, and HEP progression to facilitate reduced bilateral hand/thumb pain and improved functional use for ADLs. Plan of Care Interventions Therapeutic Exercise,Manual Therapy,Neuro Re- education,Therapeutic Activities,Hot Pack/Cold Pack,Check Out for Orthotic/Prosthetic,Ultrasound, Paraffin OT Services Indicated Yes Treatment Frequency and 2x/week for 8 visits Duration These treatments will address the objective and functional deficits as defined above. The patient will be advanced safely and appropriately in order for the patient to progress towards his/her prior level of function. Additional exercises will be introduced and as well as a comprehensive home exercise program upon discharge, if needed, ?to ensure carryover of functional gains achieved in the clinic. This treatment plan has been reviewed and agreement upon by the patient.
--- NOTE | 2025-02-12 14:11 | OPREHPOC ---
Outpatient Therapy Plan of Care This is a Multidisciplinary Plan of Care that may contain components documented by all disciplines (PT, OT, and ST.) OT Problem 1 OT Problem #1 Knowledge Deficit OT Goal 1 Goal / Goal Update 1. Pt to be indep. with HEP. Target Visit 8 OT Problem 2 OT Problem #2 Pain OT Goal 1 Goal / Goal Update 1. Pt to report no instances of 10/10 pain in either thumb in the last week. 2. Pt to report instances of 0/10 pain in bilateral thumbs in the last week. Target Visit 8 OT Problem 3 OT Problem #3 Impaired Strength OT Goal 1 Goal / Goal Update Pt to improve functional strength of the wrists and hands for ADLs, work tasks, and yard work as evidenced by: 1. progressing to 3 lb. free weight for gross wrist strengthening in all planes without pain 2. 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 pt to be able to complete palmar pinch assessment on pinch gauge with good mechanics (no IP hyperextension) with pinch strength >15 lbs. on the right and >12 lbs. on the left. Target Visit 8
--- NOTE | 2025-03-31 09:47 | PCOTNOTE ---
Patient did not show up for scheduled appointment this date. Attempted to call patient, however the call would not go through.
--- NOTE | 2025-04-21 15:41 | OTOPDC ---
Assessment and note entered by Carlos Delatorre, OTR/L, CHT OT D/C 04/21/25 Diagnosis OA of first CMC ICD-10 Condition Codes (OT) Pain in right hand M79.641,Pain in left hand M79. 642 OT Clinical Summary Patient attended 6 of the 8 scheduled OT appointments. He did not show for his re- evaluation and we were unable to contact him. D/C OT with goals not met.
== END 2025-04-21 12:05 | disposition home or self-care (01) ==
LOC: ANHOT 14:45
PROVIDERS: PCP Physician Assistant; Visit Provider Plastic Surgery
DX: M18.9 Osteoarthritis of first carpometacarpal joint, unspecified (principal)
CPT/HCPCS: 97018; 97110; 97140; 97165; 97530; L3913

== ENCOUNTER 2025-04-01 07:16 | Outpatient (CLI) | payer OTHER, SELFPAY ==
[2025-04-01 07:36] LABS: Hematocrit 44.8 % (42.0-52.0); Hemoglobin 15.5 g/dL (14.0-18.0); Mean Corpuscular HGB Conc 34.6 g/dl (32-36); Mean Corpuscular Hemoglobin 29.5 pg (26-34); Mean Corpuscular Volume 85.3 fl (80-100); Platelet Count Result 173 k/mm3 (150-375); Red Blood Count 5.25 M/mm3 (4.6-6.20); White Blood Count 5.2 K/mm3 (4.5-10.0)
[2025-04-01 07:58] LABS: Alanine Aminotransferase 57 U/L (6-50); Albumin Level 4.3 g/dL (3.5-5.1); Alkaline Phosphatase 50 U/L (38-126); Anion Gap 5 mmol/L (4-12); Aspartate Amino Transferase 38 U/L (17-59); Bilirubin,Total 0.6 mg/dL (0.2-1.3); Blood Urea Nitrogen 20 mg/dL (9-20); Calcium 8.9 mg/dL (8.4-10.2); Carbon Dioxide 27 mmol/L (22-30); Chloride 107 mmol/L (98-107); Cholesterol 171 mg/dL (0-200); Estimated Glomerular Filt Rate > 60; Glucose 94 mg/dL (65-110); HDL Direct 44 mg/dL; Potassium 4.0 mmol/L (3.4-5.0); Sodium 139 mmol/L (137-145); Total Protein 7.8 g/dL (6.3-8.2); Triglycerides 127 mg/dL (<150)
[2025-04-01 08:15] LABS: Free T4 Free Thyroxine 0.91 ng/dL (0.78-2.19)
[2025-04-01 08:33] LABS: Thyroid Stimulating Hormone 1.260 uIU/mL (0.465-4.680)
== END 2025-04-01 07:17 | disposition home or self-care (01) ==
PROVIDERS: PCP Physician Assistant; Visit Provider Internal Medicine Endocrinology, Diabetes & Metabolism
DX: E05.00 Thyrotoxicosis with diffuse goiter without thyrotoxic crisis or storm (principal); I10 Essential (primary) hypertension
CPT/HCPCS: 36415; 80053; 80061; 84439; 84443; 85027